=== PATIENT | female | born 1975 | race Caucasian/White ===

== ENCOUNTER 2022-09-03 23:29 | Emergency (ER) | payer OTHER, SELFPAY ==
[2022-09-03 23:33] VITALS: BP 169/90; PULSE 69; RESP 18; TEMP 36.8; O2SAT 96; BMI 64.0
--- NOTE | 2022-09-03 23:36 | ED_ITS ---
HPI - Seizure General Chief Complaint: Seizure Stated Complaint: seizure Time Seen by Provider: 09/03/22 23:36 History of Present Illness HPI Narrative: Patient brought in via EMS with the complaint of seizure. Patient states she was at home sleeping. She has not been sick with anything. While she was sleeping came into the room and she was not responding because she was sleeping, So he tried to wake her up and she woke up confused and startled. She states she was shaking so he called EMS because she was shaky for like 20 minutes. She has a history of nonepileptic, pseudoseizures, stress-induced seizures per her neurologist after the workup was done at the [facility]. Patient was not postictal did not have any urinary, bowel incontinence. She also has a history of migraines when she arrives she states she had migraine. She has not taking anything at home for the migraine. She denies any visual disturbance, speech difficulties. She denies any focal paresthesias, weakness. she has not been sick with any fever, chills, or cough. She denies any nausea, vomiting, diarrhea, constipation, abdominal pain. She denies any chest pain, shortness of breath. Denies any trauma.EMS stated that has been told them she has no history of seizures and the patient came straight to CAT scan. Patient states she was not being woken up because she was having any difficulty breathing or she was cyanotic or apneic states the just walked in the room called her name and she didn't answer so he Started waking her up. Related Data Home Medications Medication Instructions Recorded Confirmed fluoxetine 20 mg capsule 20 mg PO DAILY 09/03/22 09/03/22 fremanezumab-vfrm 225 mg/1.5 mL 225 mg subcut DAILY 09/03/22 09/03/22 subcutaneous auto-injector (Ajovy) galcanezumab-gnlm 120 mg/mL 120 mg subcut DAILY 09/03/22 09/03/22 subcutaneous pen injector (Emgality Pen) hydroxyzine pamoate 25 mg capsule 25 mg PO DAILY PRN anxiety 09/03/22 09/03/22 metoprolol tartrate 50 mg tablet 50 mg PO DAILY 09/03/22 09/03/22 prazosin 1 mg capsule 1 mg PO DAILY 09/03/22 09/03/22 Allergies Allergy/AdvReac Type Severity Reaction Status Date / Time No Known Drug Allergies Allergy Verified 09/03/22 23:41 Review of Systems ROS Status of ROS 10 or more systems reviewed and unremarkable except as noted in history and below [facility] Social History Smoking status: Never smoker Exam Narrative Exam Narrative: Nurses notes and vital signs reviewed and patient is not hypoxic. General: Nontoxic, Well-appearing and in no apparent distress. Skin: Warm, dry, no pallor noted. No Rash Head: Normocephalic, atraumatic. Neck: Supple, non-tender. Eye: Pupils are equal, round and EOMI. No scleral icterus. Ears, Nose, Mouth, and Throat: TM clear, no posterior oropharynx erythema or nasal mucosal hypertrophy, uvula is mid-line Oral mucosa is moist Cardiovascular: Regular Rate and Rhythm without murmur, gallop or rub. Respiratory: No accessory muscle use or respiratory distress. Lungs are clear to auscultation, no wheezing, rales or rhonchi Chest Wall: no tenderness Back: No midline thoracic or lumbar vertebral tenderness. No CVA tenderness Musculoskeletal: normal ROM, no calf or popliteal tenderness, no lower extremity edema/swelling GI: Abdomen is soft, non-distended. Normal bowel sounds. No masses appreciated. No tenderness to palpation. No rebound, guarding, or rigidity noted. Neurological: A&O x4. No cranial nerve dysfunction observed. No truncal ataxia. Moves all extremities. Sensation intact. Psychiatric: Cooperative and interactive. Normal mood and affect. Constitutional Vital Signs - 24 hr 09/03/22 23:33 09/03/22 23:39 09/03/22 23:44 Temperature 98.2 F Pulse Rate Pulse Rate [Monitor] 69 Respiratory Rate 18 Blood Pressure 169/90 H 167/91 H Blood Pressure [Left Arm] 169/90 H Pulse Oximetry 96 97 Oxygen Delivery Method Room Air 09/04/22 00:06 09/04/22 00:06 09/04/22 00:31 Temperature Pulse Rate 71 72 70 Pulse Rate [Monitor] Respiratory Rate 14 15 Blood Pressure 163/101 H 118/79 Blood Pressure [Left Arm] Pulse Oximetry 97 100 99 Oxygen Delivery Method Course Vital Signs Vital signs: Vital Signs Temperature 98.2 F 09/03/22 23:33 Pulse Rate 69 09/03/22 23:33 Respiratory Rate 18 09/03/22 23:33 Blood Pressure 169/90 H 09/03/22 23:33 Pulse Oximetry 96 09/03/22 23:33 Oxygen Delivery Method Room Air 09/03/22 23:33 Temperature 98.2 F 09/03/22 23:33 Pulse Rate 70 09/04/22 00:31 Respiratory Rate 15 09/04/22 00:31 Blood Pressure 118/79 09/04/22 00:31 Pulse Oximetry 99 09/04/22 00:31 Oxygen Delivery Method Room Air 09/03/22 23:33 MDM - Seizure MDM Narrative Medical decision making narrative: Patient's glucose was normal. Lab studies were ordered. She was given 30 mg of Toradol IV. CT scan of lab studies are unremarkable. Patient advised follow-up with primary care doctor and neurologist. At this time the patient is without objective evidence of an acute process requiring hospitalization or inpatient management. The patient has remained hemodynamically stable. No additional indication for emergent studies at this time. I answered all questions. Discussed discharge instructions including standard anticipatory guidance and what should prompt a return to the emergency department, including if they get worse are not getting better or develops any new or concerning symptoms. I've given them specific time frame in which to follow-up, and who to follow-up with. The patient demonstrates understanding. Patient is nontoxic and stable for discharge with outpatient follow-up. This note was created with the assistance of a speech recognition program. A lthough the intention is to generate documents that actually reflects the content of the visit, no guarantees can be provided that every mistake has been identified and corrected by editing. Medical Records Attestation: I reviewed the patient's medical records. Lab Data Attestation: I reviewed the patient's lab results. Labs: Lab Results 09/03/22 09/03/22 09/04/22 Range/Units 00:05 23:55 01:18 WBC 9.4 (4.0-11.0) 10^3/uL RBC 4.32 (4.20-5.40) 10^6/uL Hgb 12.4 (12.0-16.0) g/dL Hct 38.5 (36.0-48.0) % MCV 89.1 (81.0-99.0) fL MCH 28.7 (26.7-34.0) pg MCHC 32.2 (29.9-35.2) g/dL RDW 12.9 (11.0-15.0) % Plt Count 270 (150-450) 10^3/uL MPV 10.3 (9.5-13.5) fL Neut % (Auto) 47.8 (43.0-75.0) % Lymph % (Auto) 41.8 (20.5-60.0) % [place] % (Auto) 7.8 (1.7-12.0) % Eos % (Auto) 1.9 (0.9-7.0) % Baso % (Auto) 0.3 (0.2-2.0) % Neut # (Auto) 4.5 (1.4-6.5) 10^3/uL Lymph # (Auto) 3.9 H (1.2-3.8) 10^3/uL [place] # (Auto) 0.7 (0.3-0.8) 10^3/uL Eos # (Auto) 0.2 (0.0-0.7) 10^3/uL Baso # (Auto) 0.0 (0.0-0.1) 10^3/uL Abs Immat Gran (auto) 0.04 H (0.00-0.03) 10^3/uL Imm/Tot Granulo (auto) 0.4 (0.0-0.5) % Sodium 138 (136-145) mmol/L Potassium 4.0 (3.5-5.1) mmol/L Chloride 104 (98-107) mmol/L Carbon Dioxide 25.6 (21.0-32.0) mmol/L Anion Gap 12.4 BUN 13.0 (7.0-18.0) mg/dL Creatinine 1.14 H (0.55-1.02) mg/dL Est GFR ( Amer) >60 (>=60) Est GFR (Non-Af Amer) 51 L (>=60) BUN/Creatinine Ratio 11.4 Glucose 111 H (74-106) mg/dL Calcium 8.6 (8.5-10.1) mg/dL Magnesium 1.8 (1.8-2.4) mg/dL Total Bilirubin 0.2 (0.2-1.0) mg/dL AST 15 (15-37) U/L ALT 20 (14-59) U/L Alkaline Phosphatase 86 (46-116) U/L Total Protein 6.5 (6.4-8.2) g/dL Albumin 3.3 L (3.4-5.0) g/dL Globulin 3.2 g/dL Albumin/Globulin Ratio 1.0 Urine Color Lt. yellow (YELLOW) Urine Clarity Clear (CLEAR) Urine pH 6.0 (5.0-9.0) Ur Specific [place] 1.020 (1.005-1.025) Urine Protein Negative (NEG/TRACE) mg/dL Urine Glucose (UA) Negative (NEGATIVE) mg/dL Urine Ketones Negative (NEGATIVE) mg/dL Urine Occult Blood Trace-i (NEGATIVE) Urine Nitrite Negative (NEGATIVE) Urine Bilirubin Negative (NEGATIVE) Urine Urobilinogen 0.2 (0.2-1.0) EU/dL Ur Leukocyte Esterase Trace A (NEGATIVE) Urine RBC 0-2 (0-2) #/HPF Urine WBC 2-5 A (NONE SEEN) #/HPF Ur Squamous Epith Cells Moderate A (NONE/RARE) #/LPF Urine Crystals None seen (None Seen) #/HPF Urine Bacteria Trace A (NONE SEEN) #/HPF Urine Casts None seen (NONE SEEN) #/LPF Urine Mucus None seen (NONE SEEN) Urine Opiates Screen Negative (NEGATIVE) Ur Buprenorphine Scrn Negative (NEGATIVE) Ur Oxycodone Screen Negative (NEGATIVE) Urine Methadone Screen Negative (NEGATIVE) Ur Propoxyphene Screen Negative (NEGATIVE) Ur Barbiturates Screen Negative (NEGATIVE) U Tricyclic Antidepress Negative (NEGATIVE) Ur Phencyclidine Scrn Negative (NEGATIVE) Ur Amphetamines Screen Negative (NEGATIVE) U Methamphetamines Scrn Negative (NEGATIVE) U Benzodiazepines Scrn Positive A (NEGATIVE) Urine Cocaine Screen Negative (NEGATIVE) U Cannabinoids Screen Negative (NEGATIVE) ECG Data Attestation: I personally reviewed and interpreted this ECG as follows: Discharge Plan Discharge Chief Complaint: Seizure Clinical Impression: Cephalalgia Patient Disposition: Home, Self-Care Time of Disposition Decision: 01:41 Condition: Good Mode of Transportation: Private Vehicle Prescriptions / Home Meds: No Action fluoxetine 20 mg capsule 20 mg PO DAILY Ajovy Autoinjector 225 mg/1.5 mL auto-injector 225 mg SUBCUT DAILY Emgality Pen 120 mg/mL pen injector 120 mg SUBCUT DAILY hydroxyzine pamoate 25 mg capsule 25 mg PO DAILY PRN (Reason: anxiety) metoprolol tartrate 50 mg tablet 50 mg PO DAILY prazosin 1 mg capsule 1 mg PO DAILY Instructions: General Headache (ED) Stand Alone Forms: Portal Instructions Referrals: Campbell Hedrick MD [Primary Care Provider] - 1 week Discharge Date/Time: 09/04/22 01:58
--- NOTE | 2022-09-03 23:38 | ECG_ITS ---
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
--- NOTE | 2022-09-03 23:38 | XR_ITS ---
The [address] [address] Patient Name: ALISHA GOOD MRN: [id number] date: 1975 Sex: F Assigned Patient Location: ER Current Patient Location: ER Accession/Order Number: [id number] Exam Date: 09/03/2022 23:59 Report Date: 09/04/2022 00:36 At the request of: FITO JONES Procedure: XR chest 2V CXR- 2 VIEW HISTORY: Seizure activity COMPARISON: None. TECHNIQUE: 2 views of the chest are submitted for review. FINDINGS: The lungs are adequately expanded without evidence of infiltrate and/or effusion. The cardiac silhouette measures within normal. Pulmonary vascularity is unremarkable. Osseous structures are within normal limits for age. IMPRESSION: No plain film evidence for acute cardiopulmonary disease. Electronically authenticated by: JAMAAL GALAVIZ Date: 09/04/2022 00:36
[2022-09-03 23:39] VITALS: BP 169/90; O2SAT 97
[2022-09-03 23:44] VITALS: BP 167/91
--- NOTE | 2022-09-03 23:46 | CT_ITS ---
The [address] [address] Patient Name: ALISHA GOOD MRN: [id number] date: 1975 Sex: F Assigned Patient Location: ED.MAIN Current Patient Location: ED.MAIN Accession/Order Number: [id number] Exam Date: 09/03/2022 23:30 Report Date: 09/04/2022 01:47 At the request of: FITO SOARES Procedure: CT stroke head/brain wo con EXAM: CT stroke head/brain wo con CLINICAL INDICATION: seizure COMPARISON: CT head 09/23/2021 TECHNIQUE: Axial CT images of the brain were obtained without contrast. Dose reduction techniques were achieved by using automated exposure control and/or adjustment of mA and/or kV according to patient size and/or use of iterative reconstruction technique. FINDINGS: Brain parenchyma: No mass effect or midline shift is seen. Maza-white differentiation is maintained. No findings suspicious for intracranial hemorrhage. No findings suggesting acute stroke. Ventricles and extra-axial spaces: Ventricles are concordant with sulci. No findings suggesting hydrocephalus. Visualized paranasal sinuses: No findings suggesting acute sinusitis. Mild to moderate mucosal thickening noted along the left sphenoid sinus. Mastoid air cells: Clear. Included portions of the orbits:Included portions of the orbits with no evidence of fracture or other acute pathology. Bones: No fracture is seen. Impression: 1. No acute intracranial process visualized. No findings suspicious for acute stroke by noncontrast head CT. If there is high suspicion for acute intracranial pathology, please note that magnetic resonance imaging or other additional evaluation may be more sensitive than noncontrast head CT. Findings were relayed to Dr. Soares over telephone by Dr. Méndez at 1:47 AM on 09/04/2022. Electronically authenticated by: DIANE MÉNDEZ Date: 09/04/2022 01:47
[2022-09-04 00:01] LABS: Basophils Percent Auto 0.3 % (0.2-2.0); Eosinophils Absolute Auto 0.2 10^3/uL (0.0-0.7); Eosinophils Percent Auto 1.9 % (0.9-7.0); Hematocrit 38.5 % (36.0-48.0); Hemoglobin 12.4 g/dL (12.0-16.0); Immature Granulocytes Abs Auto 0.04 10^3/uL (0.00-0.03); Immature Granulocytes Pct Auto 0.4 % (0.0-0.5); Lymphocytes Absolute Auto 3.9 10^3/uL (1.2-3.8); Lymphocytes Percent Auto 41.8 % (20.5-60.0); Mean Corpuscular HGB Conc 32.2 g/dL (29.9-35.2); Mean Corpuscular Hemoglobin 28.7 pg (26.7-34.0); Mean Corpuscular Volume 89.1 fL (81.0-99.0); Mean Platelet Volume 10.3 fL (9.5-13.5); Monocytes Absolute Auto 0.7 10^3/uL (0.3-0.8); Monocytes Percent Auto 7.8 % (1.7-12.0); Neutrophils Absolute Auto 4.5 10^3/uL (1.4-6.5); Neutrophils Percent Auto 47.8 % (43.0-75.0); Platelet Count 270 10^3/uL (150-450); Red Blood Count 4.32 10^6/uL (4.20-5.40); Red Cell Distribution Width 12.9 % (11.0-15.0); White Blood Count 9.4 10^3/uL (4.0-11.0)
[2022-09-04 00:06] VITALS: BP 163/101; PULSE 71; PULSE 72; RESP 14; O2SAT 100; O2SAT 97
[2022-09-04] MEDS: KETOROLAC TROMETHAMINE 30 MG/ML VIAL IVP (00:20)
[2022-09-04 00:31] VITALS: BP 118/79; PULSE 70; RESP 15; O2SAT 99
[2022-09-04 00:33] LABS: Alanine Aminotransferase 20 U/L (14-59); Albumin Level 3.3 g/dL (3.4-5.0); Alkaline Phosphatase 86 U/L (46-116); Anion Gap 12.4; Aspartate Amino Transferase 15 U/L (15-37); BUN Creatinine Ratio 11.4; Bilirubin Total 0.2 mg/dL (0.2-1.0); Calcium 8.6 mg/dL (8.5-10.1); Carbon Dioxide 25.6 mmol/L (21.0-32.0); Chloride 104 mmol/L (98-107); Estimated GFR (African America >60 (>=60); Estimated GFR (Non-African Ame 51 (>=60); Globulin 3.2 g/dL; Glucose 111 mg/dL (74-106); Magnesium 1.8 mg/dL (1.8-2.4); Sodium 138 mmol/L (136-145); Total Protein 6.5 g/dL (6.4-8.2)
[2022-09-04 01:15] LABS: Bilirubin Urine NEGATIVE (NEGATIVE); Blood Urine TRACE-I (NEGATIVE); Clarity Urine CLEAR (CLEAR); Color Urine LT. YELLOW (YELLOW); Glucose Urine UA NEGATIVE (NEGATIVE); Ketones Urine NEGATIVE (NEGATIVE); Leukocyte Esterase Urine TRACE (NEGATIVE); Nitrite Urine NEGATIVE (NEGATIVE); Protein Urine NEGATIVE (NEG/TRACE); Urobilinogen Urine 0.2 EU/dL (0.2-1.0)
[2022-09-04 01:18] LABS: Urine Microscopic Indicated YES
[2022-09-04 01:29] LABS: Bacteria Urine TRACE #/HPF (NONE SEEN); Crystals Seen? None Seen #/HPF (None Seen); Mucus Urine NONE SEEN (NONE SEEN); RBC Urine 0-2 #/HPF (0-2); Squamous Epithelial Cell Urine MODERATE #/LPF (NONE/RARE)
[2022-09-04 01:30] LABS: Cast Seen? NONE SEEN #/LPF (NONE SEEN)
[2022-09-04 01:30] LABS: Amphetamine Screen Urine NEGATIVE (NEGATIVE); Benzodiazepines Screen Urine POSITIVE (NEGATIVE); Cannabinoid Screen Urine NEGATIVE (NEGATIVE); Cocaine Screen Urine NEGATIVE (NEGATIVE); Methamphetamines Screen Urine NEGATIVE (NEGATIVE); Opiate Screen Urine NEGATIVE (NEGATIVE); Phencyclidine Screen Urine NEGATIVE (NEGATIVE)
[2022-09-04 01:31] LABS: Barbiturates Screen Urine NEGATIVE (NEGATIVE); Buprenorphine Screen Urine NEGATIVE (NEGATIVE); Methadone Screen Urine NEGATIVE (NEGATIVE); Oxycodone Screen Urine NEGATIVE (NEGATIVE); Tricyclic Antidepressant Urine NEGATIVE (NEGATIVE)
== END 2022-09-04 01:58 | disposition home or self-care (01) ==
PROVIDERS: Emergency Provider Emergency Medicine; PCP Family Medicine
DX: R51.9 Headache, unspecified (principal); Z79.899 Other long term (current) drug therapy
CPT/HCPCS: 36415; 70450; 71046; 80053; 80307; 81003; 81015; 83735; 85025; 93005; 96374; 99285

== ENCOUNTER 2022-10-03 12:18 | Emergency (ER) | payer OTHER, SELFPAY ==
[2022-10-03 12:20] VITALS: BP 162/92; PULSE 71; RESP 18; TEMP 36.8; O2SAT 99; BMI 28.5
[2022-10-03 12:24] VITALS: BP 162/92; PULSE 62; RESP 18; O2SAT 98
[2022-10-03 12:33] VITALS: BP 147/73; PULSE 56; RESP 20; O2SAT 96
--- NOTE | 2022-10-03 12:49 | ED.GENADUL1 ---
HPI - General Adult General Chief complaint: Seizure Stated complaint: SEIZURE ACITIVITY Time Seen by Provider: 10/03/22 12:49 Source: patient Mode of arrival: walk-in Limitations: no limitations History of Present Illness HPI narrative: pt presents to the emergency department complaining of a seizure. She was brought in by private car by her significant other stating that the patient had a witnessed seizure at that lasted 10 minutes. She recovered immediately after that did not have a postictal period. Did not have any urinary, bowel incontinence. Patient states she has a history of seizures. She is seen by a neurologist at the [facility]. She states they have not placed her on any antiepileptic drugs, but she was told to continue with her depression and anxiety medications. She has an appointment tomorrow with neurology at the [facility]. She denies being sick with nausea, vomiting, or diarrhea. She has not had any Fever, chills, cough, or upper respiratory infection symptoms. She denies any headache, visual disturbance, or speech difficulties. She denies any paresthesias, or weakness.And, shortness of breath.She denies any flank pain, hematuria, dysuria. She denies any trauma. Related Data Home Medications Medication Instructions Recorded Confirmed fluoxetine 20 mg capsule 20 mg PO DAILY 09/03/22 09/03/22 galcanezumab-gnlm 120 mg/mL 120 mg subcut DAILY 09/03/22 09/03/22 subcutaneous pen injector (Emgality Pen) hydroxyzine pamoate 25 mg capsule 25 mg PO DAILY PRN anxiety 09/03/22 09/03/22 metoprolol tartrate 50 mg tablet 50 mg PO DAILY 09/03/22 09/03/22 prazosin 1 mg capsule 1 mg PO DAILY 09/03/22 09/03/22 Allergies Allergy/AdvReac Type Severity Reaction Status Date / Time No Known Drug Allergies Allergy Verified 09/03/22 23:41 Review of Systems ROS Status of ROS 10 or more systems reviewed and unremarkable except as noted in history and below [facility] Social History Smoking status: Never smoker Exam Narrative Exam Narrative: Nurses notes and vital signs reviewed and patient is not hypoxic. General: Nontoxic, Well-appearing and in no apparent distress. Skin: Warm, dry, no pallor noted. No Rash Head: Normocephalic, atraumatic. Neck: Supple, non-tender. Eye: Pupils are equal, round and EOMI. No scleral icterus. Ears, Nose, Mouth, and Throat: TM clear, no posterior oropharynx erythema or nasal mucosal hypertrophy, uvula is mid-line Oral mucosa is moist Cardiovascular: Regular Rate and Rhythm without murmur, gallop or rub. Respiratory: No accessory muscle use or respiratory distress. Lungs are clear to auscultation, no wheezing, rales or rhonchi Chest Wall: no tenderness Back: No midline thoracic or lumbar vertebral tenderness. No CVA tenderness Musculoskeletal: normal ROM, no calf or popliteal tenderness, no lower extremity edema/swelling GI: Abdomen is soft, non-distended. Normal bowel sounds. No masses appreciated. No tenderness to palpation. No rebound, guarding, or rigidity noted. Neurological: A&O x4. No cranial nerve dysfunction observed. No truncal ataxia. Moves all extremities. Sensation intact. Psychiatric: Cooperative and interactive. Normal mood and affect. Constitutional Vital Signs, click to edit/add: Last Vital Signs Temp 98.2 F 10/03/22 12:20 Pulse 71 10/03/22 12:20 Resp 18 10/03/22 12:20 BP 162/92 H 10/03/22 12:20 Pulse Ox 99 10/03/22 12:20 O2 Del Method Room Air 10/03/22 12:20 Course Vital Signs Vital signs: Vital Signs Temperature 98.2 F 10/03/22 12:20 Pulse Rate 71 10/03/22 12:20 Respiratory Rate 18 10/03/22 12:20 Blood Pressure 162/92 H 10/03/22 12:20 Pulse Oximetry 99 10/03/22 12:20 Oxygen Delivery Method Room Air 10/03/22 12:20 Temperature 98.2 F 10/03/22 12:20 Pulse Rate 71 10/03/22 12:20 Respiratory Rate 18 10/03/22 12:20 Blood Pressure 162/92 H 10/03/22 12:20 Pulse Oximetry 99 10/03/22 12:20 Oxygen Delivery Method Room Air 10/03/22 12:20 Medical Decision Making MDM Narrative Medical decision making narrative: Patient is neurologically intact. Patient is nontoxic. Doesn't have any focal complaints. She has follow-up appointment tomorrow with neurology. labs are unremarkable. At this time the patient is without objective evidence of an acute process requiring hospitalization or inpatient management. The patient has remained hemodynamically stable. No additional indication for emergent studies at this time. I answered all questions. Discussed discharge instructions including standard anticipatory guidance and what should prompt a return to the emergency department, including if they get worse are not getting better or develops any new or concerning symptoms. I've given them specific time frame in which to follow-up, and who to follow-up with. The patient demonstrates understanding. Patient is nontoxic and stable for discharge with outpatient follow-up. This note was created with the assistance of a speech recognition program. Although the intention is to generate documents that actually reflects the content of the visit, no guarantees can be provided that every mistake has been identified and corrected by editing. Lab Data Lab results reviewed: Yes I reviewed the patient's lab results Labs: Lab Results 10/03/22 Range/Units 12:35 WBC 8.3 (4.0-11.0) 10^3/uL RBC 4.59 (4.20-5.40) 10^6/uL Hgb 13.3 (12.0-16.0) g/dL Hct 40.6 (36.0-48.0) % MCV 88.5 (81.0-99.0) fL MCH 29.0 (26.7-34.0) pg MCHC 32.8 (29.9-35.2) g/dL RDW 13.1 (11.0-15.0) % Plt Count 346 (150-450) 10^3/uL MPV 10.7 (9.5-13.5) fL Neut % (Auto) 51.5 (43.0-75.0) % Lymph % (Auto) 38.5 (20.5-60.0) % [place] % (Auto) 6.2 (1.7-12.0) % Eos % (Auto) 2.7 (0.9-7.0) % Baso % (Auto) 0.6 (0.2-2.0) % Neut # (Auto) 4.3 (1.4-6.5) 10^3/uL Lymph # (Auto) 3.2 (1.2-3.8) 10^3/uL [place] # (Auto) 0.5 (0.3-0.8) 10^3/uL Eos # (Auto) 0.2 (0.0-0.7) 10^3/uL Baso # (Auto) 0.1 (0.0-0.1) 10^3/uL Abs Immat Gran (auto) 0.04 H (0.00-0.03) 10^3/uL Imm/Tot Granulo (auto) 0.5 (0.0-0.5) % Sodium 139 (136-145) mmol/L Potassium 4.1 (3.5-5.1) mmol/L Chloride 104 (98-107) mmol/L Carbon Dioxide 28.3 (21.0-32.0) mmol/L Anion Gap 10.8 BUN 15.0 (7.0-18.0) mg/dL Creatinine 1.09 H (0.55-1.02) mg/dL Est GFR ( Amer) >60 (>=60) Est GFR (Non-Af Amer) 53 L (>=60) BUN/Creatinine Ratio 13.8 Glucose 109 H (74-106) mg/dL Calcium 8.7 (8.5-10.1) mg/dL Discharge Plan Discharge Chief Complaint: Seizure Clinical Impression: Seizure Patient Disposition: Home, Self-Care Time of Disposition Decision: 14:05 Condition: Good Mode of Transportation: Private Vehicle Prescriptions / Home Meds: No Action fluoxetine 20 mg capsule 20 mg PO DAILY Emgality Pen 120 mg/mL pen injector 120 mg SUBCUT DAILY hydroxyzine pamoate 25 mg capsule 25 mg PO DAILY PRN (Reason: anxiety) metoprolol tartrate 50 mg tablet 50 mg PO DAILY prazosin 1 mg capsule 1 mg PO DAILY Instructions: Recurrent Seizures in Adults (ED) Stand Alone Forms: Portal Instructions Referrals: Campbell Hedrick MD [Primary Care Provider] - 1 week
[2022-10-03 13:00] VITALS: BP 134/86; PULSE 54; RESP 26; O2SAT 96
[2022-10-03 13:30] VITALS: BP 131/83; PULSE 55; RESP 10; O2SAT 96
[2022-10-03 13:49] LABS: Basophils Absolute Auto 0.1 10^3/uL (0.0-0.1); Basophils Percent Auto 0.6 % (0.2-2.0); Eosinophils Absolute Auto 0.2 10^3/uL (0.0-0.7); Eosinophils Percent Auto 2.7 % (0.9-7.0); Hematocrit 40.6 % (36.0-48.0); Hemoglobin 13.3 g/dL (12.0-16.0); Immature Granulocytes Abs Auto 0.04 10^3/uL (0.00-0.03); Immature Granulocytes Pct Auto 0.5 % (0.0-0.5); Lymphocytes Absolute Auto 3.2 10^3/uL (1.2-3.8); Lymphocytes Percent Auto 38.5 % (20.5-60.0); Mean Corpuscular HGB Conc 32.8 g/dL (29.9-35.2); Mean Corpuscular Volume 88.5 fL (81.0-99.0); Mean Platelet Volume 10.7 fL (9.5-13.5); Monocytes Absolute Auto 0.5 10^3/uL (0.3-0.8); Monocytes Percent Auto 6.2 % (1.7-12.0); Neutrophils Absolute Auto 4.3 10^3/uL (1.4-6.5); Neutrophils Percent Auto 51.5 % (43.0-75.0); Platelet Count 346 10^3/uL (150-450); Red Blood Count 4.59 10^6/uL (4.20-5.40); Red Cell Distribution Width 13.1 % (11.0-15.0); White Blood Count 8.3 10^3/uL (4.0-11.0)
[2022-10-03 13:57] LABS: Anion Gap 10.8; BUN Creatinine Ratio 13.8; Calcium 8.7 mg/dL (8.5-10.1); Carbon Dioxide 28.3 mmol/L (21.0-32.0); Chloride 104 mmol/L (98-107); Estimated GFR (African America >60 (>=60); Estimated GFR (Non-African Ame 53 (>=60); Glucose 109 mg/dL (74-106); Potassium 4.1 mmol/L (3.5-5.1); Sodium 139 mmol/L (136-145)
[2022-10-03 14:00] VITALS: BP 140/80; PULSE 54; RESP 11; O2SAT 98
== END 2022-10-03 14:20 | disposition home or self-care (01) ==
PROVIDERS: Emergency Provider Emergency Medicine; PCP Family Medicine
DX: G40.909 Epilepsy, unspecified, not intractable, without status epilepticus (principal); Z79.899 Other long term (current) drug therapy
CPT/HCPCS: 36415; 80048; 85025; 99283

== ENCOUNTER 2022-10-28 12:26 | Outpatient (OUT) | payer OTHER, SELFPAY ==
--- NOTE | 2022-10-28 12:39 | MM_ITS ---
Patient: ALISHA GOOD Exam Date: 10/28/2022 : 1975 Gender:F Ordering : DR Campbell Hedrick . Admission #: [id number] Family : MARY GRAHAM Order #: [id number] CLICK HERE TO VIEW EXAM RADIOLOGY REPORT PROCEDURE: MM TOMOSYNTHESIS SCREENING BI COMPARISON: MG MAMM SCREEN 3D JG CAD, 01/29/2021. MG MAMM SCREEN JG W CAD, 01/28/2020. MG MAMM SCREEN JG W CAD, 01/23/2019. MG MAMM JG SCRN W CAD DIG, 11/07/2013. INDICATIONS: Screening mammogram Calculator Name NCI Breast Cancer Risk Assessment Tool 5 Year Breast Cancer Risk 1.00% Lifetime Breast Cancer Risk 10.00% Personal Breast Cancer No Personal Ovarian Cancer No Treatments None Family Cancers None LOCATION: [facility] BREAST COMPOSITION: Scattered areas fibroglandular density. FINDINGS: DIAGNOSTIC CATEGORY 1--NEGATIVE. RIGHT BREAST: No significant suspicious finding. No significant change has occurred. LEFT BREAST: No significant suspicious finding. No significant change has occurred. RECOMMENDATIONS: ROUTINE MAMMOGRAM AND CLINICAL EVALUATION IN 12 MONTHS. PLEASE NOTE: A NORMAL MAMMOGRAM DOES NOT EXCLUDE THE POSSIBILITY OF BREAST CANCER. A CLINICALLY SUSPICIOUS PALPABLE LUMP SHOULD BE BIOPSIED. Dictated by: Jake Singh M.D. on 10/28/2022 at 14:54 Approved by: Jake Singh M.D. on 10/28/2022 at 15:00
[2022-10-28 12:51] LABS: Basophils Percent Auto 0.5 % (0.2-2.0); Eosinophils Absolute Auto 0.1 10^3/uL (0.0-0.7); Eosinophils Percent Auto 1.8 % (0.9-7.0); Hematocrit 37.5 % (36.0-48.0); Hemoglobin 12.5 g/dL (12.0-16.0); Immature Granulocytes Abs Auto 0.01 10^3/uL (0.00-0.03); Immature Granulocytes Pct Auto 0.2 % (0.0-0.5); Lymphocytes Absolute Auto 2.5 10^3/uL (1.2-3.8); Mean Corpuscular HGB Conc 33.3 g/dL (29.9-35.2); Mean Platelet Volume 10.1 fL (9.5-13.5); Monocytes Absolute Auto 0.4 10^3/uL (0.3-0.8); Monocytes Percent Auto 5.7 % (1.7-12.0); Neutrophils Absolute Auto 3.4 10^3/uL (1.4-6.5); Neutrophils Percent Auto 52.8 % (43.0-75.0); Platelet Count 310 10^3/uL (150-450); Red Blood Count 4.31 10^6/uL (4.20-5.40); Red Cell Distribution Width 13.2 % (11.0-15.0); White Blood Count 6.5 10^3/uL (4.0-11.0)
[2022-10-28 14:20] LABS: Alanine Aminotransferase 19 U/L (14-59); Albumin Level 3.4 g/dL (3.4-5.0); Alkaline Phosphatase 63 U/L (46-116); Anion Gap 11.6; Aspartate Amino Transferase 14 U/L (15-37); BUN Creatinine Ratio 13.3; Bilirubin Total 0.5 mg/dL (0.2-1.0); Calcium 8.4 mg/dL (8.5-10.1); Carbon Dioxide 28.5 mmol/L (21.0-32.0); Chloride 104 mmol/L (98-107); Chol HDL Ratio 4.8; Cholesterol 206 mg/dL (<=200); Estimated GFR (African America >60 (>=60); Estimated GFR (Non-African Ame >60 (>=60); Free T3 1.98 pg/mL (2.18-3.98); Globulin 3.3 g/dL; Glucose 90 mg/dL (74-106); HDL Cholesterol 43 mg/dL (40-60); Potassium 4.1 mmol/L (3.5-5.1); Sodium 140 mmol/L (136-145); Thyroid Stimulating Hormone 1.627 uIU/mL (0.358-3.740); Total Protein 6.7 g/dL (6.4-8.2); Triglycerides 86 mg/dL (<=150); VLDL CHOLESTEROL 17.2 mg/dL
[2022-10-28 14:26] LABS: Estimated Average Glucose 108 mg/dL; Glycohemoglobin A1C 5.4 % (4.5-6.2)
[2022-10-29 10:12] LABS: Insulin 7.3 uIU/mL (2.6-24.9)
== END 2022-10-28 12:27 | disposition home or self-care (01) ==
LOC: MAMMO 12:26
PROVIDERS: PCP Family Medicine; Visit Provider Family Medicine
DX: Z00.00 Encounter for general adult medical examination without abnormal findings (principal); Z12.31 Encounter for screening mammogram for malignant neoplasm of breast
CPT/HCPCS: 36415; 77063; 77067; 80053; 80061; 82306; 83036; 83525; 83540; 84436; 84443; 84481; 85025

== ENCOUNTER 2023-02-23 07:38 | Outpatient (REF) | payer OTHER, SELFPAY ==
--- OUTSIDE RECORDS SUMMARY | 2023-03-09 02:36 | XMS_ITS | CCD ---
Author Name Unknown Address [address] [place] [address] Organization [facility] Care Team Providers Care Professor Of Economics Name Role Phone MD Cristino Mendes Primary Care Provider [phone] DO Neeraj Arevalo Emergency Provider Paolo Kaye Jr. Primary Care Provider Cristino Hernandes MD Unavailable Cristino Mendes Primary Care Physician [phone] Tracy Cortez Attending Unavailable Tracy Cortez Admitting Unavailable Cristino Mendes MD Unavailable Cristino Mendes MD Unavailable Neeraj Arevalo Admitting Unavailable Neeraj Arevalo Attending Unavailable Cristino Mendes Primary Care Unavailable Ortega Conklin Admitting UnavailOrtega Lozano Attending UnavailCristino George Primary Care Unavailable CINTHYA Ocampo, DR GREGG Admitting Unavailable CINTHYA ., DR GREGG Attending Unavailable CINTHYA ., DR GREGG Primary Care Unavailable CINTHYA ., DR GREGG Admitting Unavailable CINTHYA ., DR GREGG Primary Care Unavailable CINTHYA .DR GREGG Attending Unavailable CINTHYA ., DR GREGG Consulting Unavailable MONICA BURDEN Consulting Unavailable CINTHYA ., DR GREGG Primary Care Unavailable CINTHYA ., DR GREGG Admitting Unavailable CINTHYA ., DR GREGG Attending Unavailable CINTHYA ., DR GERGG Consulting Unavailable KETTY KOHLER Consulting Unavailable KETYT KOHLER Admitting Unavailable KETTY KOHLER Attending Unavailable CINTHYA Ocampo, DR GREGG Primary Care Unavailable CINTHYA ., DR GREGG Primary Care Unavailable DR CARROL BANEGAS Admitting Unavailable DR CARROL BANEGAS Attending Unavailable DR CARROL BANEGAS Consulting Unavailable KAREN ., FITO Attending Unavailable KAREN ., FITO Consulting Unavailable KAREN ., FITO Admitting Unavailable HOY ., DR GREGG Primary Care Unavailable HAY ., DR PEACE Attending Unavailable HOY ., DR GREGG Primary Care Unavailable HAY ., DR PEACE Consulting Unavailable HAY ., DR PEACE Admitting Unavailable HOY ., DR GREGG Primary Care Unavailable BASSAM, DR CARROL Multani Admitting Unavailable BANEGAS, DR CARROL Multani Attending Unavailable BANEGAS, DR CARROL Multani Consulting Unavailable KAREN ., FITO Attending Unavailable KAREN ., FITO Consulting Unavailable KAREN ., FITO Admitting Unavailable HOY ., DR GREGG Primary Care Unavailable HOY ., DR GREGG Primary Care Unavailable HAY ., DR PEACE Attending Unavailable HAY ., DR PEACE Consulting Unavailable HAY ., DR PEACE Admitting Unavailable JOSE F, KETTY Consulting Unavailable JOSE F, KETTY Admitting Unavailable JOSE F, KETTY Attending Unavailable HOY ., DR GREGG Primary Care Unavailable JOSE F, KETTY Consulting Unavailable JOSE F, KETTY Admitting Unavailable JOSE F, KETTY Attending Unavailable HOY ., DR GREGG Primary Care Unavailable PAIGE .KARL Consulting Unavailabl e HAY ., DR PEACE Attending Unavailable HAY ., DR PEACE Admitting Unavailable HOY ., DR GREGG Primary Care Unavailable KAREN ., FITO Attending Unavailable KAREN ., FITO Consulting Unavailable KAREN ., FITO Admitting Unavailable HOY ., DR GREGG Primary Care Unavailable HOY ., DR GREGG Primary Care Unavailable JOSE F, KETTY Consulting Unavailable JOSE F, KETTY Admitting Unavailable JOSE F, KETTY Attending Unavailable BASSAM, DR CARROL Multani Admitting Unavailable BANEGAS, DR CARROL Multani Attending Unavailable BASSAM, DR CARROL Multani Consulting Unavailable HOY ., DR GREGG Primary Care Unavailable HOY ., DR GREGG Primary Care Unavailable BASSAM, DR CARROL Multani Admitting Unavailable BANEGAS, DR CARROL Multani Attending Unavailable BASSAM, DR CARROL Multani Consulting Unavailable ANDERSON ., VIKI Consulting Unavailable HOY ., DR GREGG Primary Care Unavailable JOSE F, KETTY Consulting Unavailable JOSE F, KETTY Admitting Unavailable JOSE F, KETTY Attending Unavailable HOY ., DR GREGG Primary Care Unavailable MIGUEL, CHRISTINA Admitting Unavailable MIGUEL, CHRISTINA Attending Unavailable MIGUEL, CHRISTINA Consulting Unavailable HOY ., DR GREGG Consulting Unavailable HOY ., DR GREGG Admdamon Unavailable HOY ., DR GREGG Attending Unavailable HOY ., DR GREGG Primary Care Unavailable HOY ., DR GREGG Primary Care Unavailable JOSE F, KETTY Consulting Unavailable KETTY KOHLER Admitting Unavailable KETTY KOHLER Attending Unavailable CINTHYA ., DR GREGG Admitting Unavailable CINTHYA ., DR GREGG Primary Care Unavailable JONATHANY ., DR GREGG Attending Unavailable HOY ., DR GREGG Consulting Unavailable ELIJAH, DR CINTHIA Forrest Consulting Unavailable PASHA, DR ORTEGA Admitting Unavailable PASHA, DR ORTEGA Attending Unavailable CINTHYA ., DR GREGG Primary Care Unavailable PAIGE ., KARL MAYNARD Consulting Unavailabl e MARKER ., DR GUZMAN Admitting Unavailable MARKER ., DR GUZMAN Attending Unavailable HOY ., DR GREGG Primary Care Unavailable KELLEY MCDONALD Referring Unavailable RAPP JR, PAOLO S Primary Care Unavailable RAPP JR, PAOLO S Primary Care Unavailable ODALIS CASTELLANOS Attending Unavailable KELLEY MCDONALD Referring Unavailable RAPP JR, PAOLO S Primary Care Unavailable ROSS YEH Attending Unavailable CRISTINO MENDES Referring Unavailable RAPP JR, PAOLO S Primary Care Unavailable NIYA BROWNING Attending Unavaila ble RAPP JR, PAOLO S Primary Care Unavailable RAPP JR, PAOLO S Primary Care Unavailable NIYA BORWNING Attending Unavaila ble RAPP JR, PAOLO S Primary Care Unavailable RAPP JR, PAOLO S Primary Care Unavailable ROSS YEH Attending Unavailable NAJM, IMAD Admitting Unavailable NAJM, IMAD Attending Unavailable RAPP JR, PAOLO S Primary Care Unavailable RAPP JR, PAOLO S Primary Care Unavailable NIKI HAMMER Attending Unavailable ROSS YEH Attending Unavailable RAPP JR, PAOLO S Primary Care Unavailable ALEXANDRO BUNN Attending Unavailable RAPP JR, PAOLO S Primary Care Unavailable Medications Current Medications Medication Drug Class(es) Dates Sig (Normalized) Sig (Original) Etonogestrel Implant System (1 source) Start: 07-28-2020 Etonogestrel Implant System 68 mg, SubCutaneous, Once, 12/2016- 12/2019, Refills(s) 0 Start Date: 07/28/20 Status: Ordered FLUoxetine 40 mg oral capsule (14 sources) Serotonin Reuptake Inhibitor Start: 07-28-2020 take 1 capsule by mouth once daily FLUoxetine 40 mg Cap 40 mg = 1 cap(s), Oral, Daily, Refills(s) 0 Start Date: 07/28/20 Status: Ordered take 3 capsules by mouth once da joe FLUoxetine (PROZAC) 20 mg capsule Take 60 mg by mouth once daily. 0 Active take 1 capsule by mouth three ti mes daily FLUoxetine (PROZAC) 20 mg capsule Take 20 mg by mouth three times daily. 0 Active Comment on above: Take 20 mg by mouth three times daily. Take 60 mg by mouth once daily. Folacin-800 (1 source) Start: 07-28-2020 take 1 tablet by mouth once daily Folacin-800 1 tab, Oral, Daily, Refills(s) 0 Start Date: 07/28/20 Status: Ordered 1 ml galcanezumab-gnlm 120 mg/ml auto-injector (6 sources) Start: 07-05-2022 End: 04-02-2023 inject 1 mL by subcutaneous injection every month galcanezumab-gnlm (EMGALITY PEN) 120 mg/mL pen Inject 1 mL subcutaneously once every month. Do not shake. 6 mL 0 10/04/2022 04/02/2023 Active Comment on above: Inject 1 mL subcutan eously once every month. Do not shake. 24 hr metoprolol succinate 50 mg extended release oral tablet (14 sources) beta-Adrenergic Nesha Start: 07-28-2020 take 1 tablet by mouth twice daily metoprolol 50 mg ER Tab 50 mg = 1 tab(s), Oral, BID, Refills(s) 0 Start Date: 07/28/20 Status: Ordered take 1 tablet by mouth twice bruce ly metoprolol tartrate, short acting, (LOPRESSOR) 50 mg tablet Take 50 mg by mouth twice daily. 0 Active Comment on above: Take 50 mg by mouth twice daily. naproxen 500 mg oral tablet (1 source) Nonsteroidal Anti-inflammatory Drug Start: 2022 take 1 tablet by mouth twice daily Naproxen (Naprosyn) 500 mg tablet Active 500 MG PO Twice daily 12 23January 19, 2022 12:00am rizatriptan 10 mg disintegrating oral tablet (1 source) Serotonin-1b and Serotonin-1d Receptor Agonist Start: 07-28-2020 take 1 tablet by mouth once daily rizatriptan 10 mg Dis Tab 10 mg = 1 tab(s), Oral, Daily, Refills(s) 0 Start Date: 07/28/20 Status: Ordered tiZANidine 4 mg oral capsule (1 source) Central alpha-2 Adrenergic Agonist Start: 07-28-2020 take 1 capsule by mouth three times daily Zanaflex 4 mg oral capsule 4 mg = 1 cap(s), Oral, TID, Refills(s) 0 Start Date: 07/28/20 Status: Ordered Completed/Discontinued Medications Medication Drug Class(es) Dates Sig (Normalized) Sig (Original) amitriptyline hydrochloride 100 mg oral tablet (1 source) Tricyclic Antidepressant Start: 07-28-2020 take 0.5-1 tablets by mouth once daily at bedtime amitriptyline 100 mg oral tablet 100 mg = 1 tab(s), Oral, Once a day (at bedtime), 1/2 to 1 tablet by mouth at bedtime, # 30 tab(s), Refills(s) 0 Start Date: 07/28/20 Status: Ordered 1.5 ml fremanezumab-vfrm 150 mg/ml auto-injector (7 sources) Start: 04-16-2022 End: 07-05-2022 inject 1.5 mL by subcutaneous injection every month fremanezumab-vfrm ([employer] AUTOINJECTOR) 225 mg/1.5 mL auto-injector Inject 1.5 mL subcutaneously once every month. Do not shake. 4.5 mL 2 04/16/2022 07/05/2022 Discontinued (Course of therapy completed) Comment on above: Inject 1.5 mL subcut aneously once every month. Do not shake. hydrOXYzine pamoate 25 mg oral capsule (13 sources) Antihistamine take 1 capsule by mouth every eight hours as needed hydrOXYzine pamoate (VISTARIL) 25 mg capsule Take 25 mg by mouth three times daily as needed for anxiety. 0 Active Comment on above: Take 25 mg by mouth three times daily as needed for anxiety. lamoTRIgine 100 mg oral tablet (5 sources) Mood Stabilizer, Anti-epileptic Agent take 1 tablet by mouth once daily lamoTRIgine (LAMICTAL) 100 mg tablet Take 100 mg by mouth once daily. 0 Active Comment on above: Take 100 mg by mouth once daily. Prazosin (13 sources) alpha-Adrenergic Nesha take 1 capsule by mouth once daily at bedtime prazosin HCl (PRAZOSIN ORAL) Take 1 mg by mouth daily at bedtime. 1 capsule by mouth hs. 0 Active Comment on above: Take 1 mg by mouth d aily at bedtime. 1 capsule by mouth hs. zonisamide 100 mg oral capsule (5 sources) Anti-epileptic Agent take 1 capsule by mouth once daily at bedtime zonisamide (ZONEGRAN) 100 mg capsule Take 100 mg by mouth daily at bedtime. 0 Active Comment on above: Take 100 mg by mouth daily at bedtime. Problems Active Problems Problem Classification Problem Date Documented Da te Episodic/Chronic Anxiety disorders (20 sources) Mixed anxiety and depressive disorder; Translations: [Generalized anxiety disorder] Onset: 2 07-28-2020 Chronic Cardiac dysrhythmias (1 source) Palpitations 07-28-2020 Episodic Epilepsy; convulsions (1 source) Other seizures; Translations: [OTHER SEIZURES] Onset: 3 Chronic Essential hypertension (10 sources) Hypertensive disorder; Translations: [Essential (primary) hypertension] Onset: 3 05-28-2022 Chronic Headache; including migraine (20 sources) Tension-type headache; Translations: [Tension-type headache, unspecified, not intractable] Onset: 2 2022 Chronic Headache; including migraine (1 source) Headache 07-28-2020 Episodic Headache; including migraine (5 sources) Headache; including migraine; Translations: [HEADACHE UNSPECIFIED] Onset: 2 Malaise and fatigue (1 source) Fatigue 07-28-2020 Episodic Miscellaneous mental health disorders (6 sources) Dissociative convulsions; Translations: [Conversion disorder with seizures or convulsions] Onset: 3 2022 Chronic Mood disorders (10 sources) Depressive disorder; Translations: [Depression] Onset: 2 05-28-2022 Chronic Noninfectious gastroenteritis (1 source) Gastroenteritis 07-28-2020 Episodic Other aftercare (1 source) Other longwall foreman (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) drug therapy; Translations: [OTH PHOTOGEOLOGIST CURRENT DRUG THERAPY] Onset: 3 Episodic Other and unspecified benign neoplasm (1 source) Benign neoplasm of skin of neck 08-20-2020 Episodic Other and unspecified benign neoplasm (1 source) Benign neoplasm of soft tissue 07-28-2020 Episodic Other gastrointestinal disorders (1 source) History of gastroesophageal reflux disease 05-10-2021 Episodic Other hereditary and degenerative nervous system conditions (4 sources) Essential tremor; Translations: [ESSENTIAL TREMOR] Onset: 2 Chronic Other nervous system disorders (1 source) Skin sensation disturbance 07-29-2020 Episodic Other non-epithelial cancer of skin (1 source) Basal cell carcinoma of nose 08-20-2020 Episodic Other nutritional; endocrine; and metabolic disorders (1 source) Body mass index 30+ - obesity 07-29-2020 Chronic Other skin disorders (1 source) Change in skin lesion 07-29-2020 Episodic Residual codes; unclassified (1 source) Sleep apnea, unspecified; Translations: [SLEEP APNEA UNSPECIFIED] Onset: 3 Chronic Spondylosis; intervertebral disc disorders; other back problems (2 sources) Low back pain; Translations: [Pain in the coccyx] 07-28-2020 Episodic Unclassified (1 source) Unspecified convulsions; Translations: [Unspecified convulsions] Onset: 2 Unclassified (3 sources) COUGH, UNSPECIFIED; Translations: [COUGH, UNSPECIFIED] Onset: 3 Unclassified (3 sources) CONTACT W/AND (SUSP) EXPOS COVID-19; Translations: [CONTACT W/AND (SUSP) EXPOS COVID-19] Onset: 2 Unclassified (1 source) Established Patient Onset: 3 Viral infection (1 source) COVID-19; Translations: [COVID-19] Onset: 2 Past or Other Problems Problem Classification Problem Date Documented Da te Episodic/Chronic Conditions associated with dizziness or vertigo (1 source) Dizziness and giddiness; Translations: [DIZZINESS AND GIDDINESS] Onset: 08-24-2021 Episodic Epilepsy; convulsions (16 sources) Neurological finding; Translations: [Unspecified convulsions] Onset: 05-28-2022 Episodic Nausea and vomiting (1 source) Nausea; Translations: [NAUSEA] Onset: 12-07-2021 Episodic Nonspecific chest pain (1 source) Chest pain, unspecified; Translations: [CHEST PAIN UNSPECIFIED] Onset: 10-19-2021 Episodic Other connective tissue disease (1 source) Arthrodesis status; Translations: [ARTHRODESIS STATUS] Onset: 04-19-2022 Episodic Other upper respiratory disease (1 source) Nasal congestion; Translations: [NASAL CONGESTION] Onset: 03-25-2022 Episodic Unclassified (1 source) COUGH, UNSPECIFIED; Translations: [COUGH, UNSPECIFIED] Onset: 03-19-2022 Unclassified (1 source) CONTACT W/AND (SUSP) EXPOS COVID-19; Translations: [CONTACT W/AND (SUSP) EXPOS COVID-19] Onset: 10-02-2021 Results Test Name Value Interpretation Reference Range Facil ityola CNOVon 01-07-2023 CNOV Office Visit (EPILMN ) LATISHAALISHA ([id number]) 1975 F Date Time Provider Department 01/07/23 3:00 PM NIYA BROWNING [facility] During your visit today, we recorded the following information about you: Niya Browning, PhD 01/07/2023 4:01 PM Signed [facility] 12-WEEK FND/PNES TREATMENT PROGRAM PSYCHOLOGY NOTE Session #: 2 Office visit: Location: [facility] [address] Pt came to appointment accompanied by: sister ASSESSMENT: This is a 47 year old patient with nonepileptic seizures/functional neurological disorder in counseling for management of symptoms. # of seizures per week: 0 Last day of PNES episode: in the summer Depression: mild SI?: none reported Anxiety: mild Function: pt spends time at home, lives with her boyfriend, takes care of the house Mental Status Exam: The patient was alert and oriented x 4. Eye contact was good. Affect was constricted. Judgment/insight was fair-good. Concentration was ok. Pt reported mood as euthymic. Pt firmly denied any SI/HI this week. INTERVENTION: CBT Workbook Taking Control of FND/PNES Chapter 3 - Getting Support Reviewed the third chapter and helped pt identify a supportive person. Discussed Tool #1: Improving Communication Skills. Reviewed the 3 types of communication styles and examples of each style. Helped pt identify situations from own life experience, and brainstormed ways to improve communication with supportive person for the following week. Continued to review the third chapter, specifically ways to improve relationship with identified support person. Discussed Tool #2: Goal-Setting. Helped pt set an achievable goal for the week. Reviewed discussion questions and provided clarifications. PATIENT RESPONSE: Pt's understanding of the material appeared good; pt asked appropriate questions. Had some difficulty coming up with examples of communication but eventually was able to verbalize given simplified descriptions. Pt was able to select a goal for the week, which includes calling a friend to talk. DIAGNOSIS (PROVISIONAL): F44.5 Functional Neurological Symptom Disorder (with seizure attacks) TREATMENT GOALS: Increase identification of emotions and emotional regulation Learn healthy tools for emotional release Set healthy boundaries with others Increase tools related to communication Increase interest in activities/interest in life Increase healthy lifestyle routines (sleep, exercise, schedule) Develop mindfulness/meditation practice(s) Increase physical activity Explore and engage in activities that align with interests PROGRESS: Pt is motivated, participated in session appropriately and was able to identify a goal to work on. PLAN: Weekly sessions for treatment of Functional Neurological Symptom Disorder with Seizure Attacks. Assignment for next week to include reading the next chapter, as well as keeping a seizure log and a daily journal. Time spent with patient: 45 minutes Niya Browning, PhD [facility] Allergies As of Date: 01/07/2023 (No Known Allergies) Date Reviewed: 10/04/2022 Reviewed by: Jane Mauricio RN - Fully Assessed Reason for Visit: Psychogenic nonepileptic seizure [Other] Primary Visit Diagnosis:Psychogenic nonepileptic seizure [F44.5] Prescriptions as of 01/07/2023 - galcanezumab-gnlm (EMGALITY PEN) 120 mg/mL pen Inject 1 mL subcutaneously once every month. Do not shake. - prazosin HCl (PRAZOSIN ORAL) Take 1 mg by mouth daily at bedtime. 1 capsule by mouth hs. - metoprolol tartrate, short acting, (LOPRESSOR) 50 mg tablet Take 50 mg by mouth twice daily. - FLUoxetine (PROZAC) 20 mg capsule Take 60 mg by mouth once daily. - hydrOXYzine pamoate (VISTARIL) 25 mg capsule Take 25 mg by mouth three times daily as needed for anxiety. Problem List As Of Date 01/07/2023 Noted Resolved HTN (hypertension) [I10] 05/28/2022 Generalized anxiety disorder [F41.1] 05/28/2022 Depression [F32.A] 05/28/2022 Migraines [G43.909] 05/28/2022 PTSD (post-traumatic stress disorder) [F43.10] 05/28/2022 Seizure-like activity (HCC) [R56.9] 05/29/2022 Encounter Status:Closed by NIYA BROWNING on 01/07/23 Normal [facility] CNOVon 12-31-2022 CNOV Office Visit (EPILMN ) ALISHA ARNOLD ([id number]) 1975 F Date Time Provider Department 12/31/22 3:00 PM NIYA BROWNING [facility] During your visit today, we recorded the following information about you: Niya Browning, PhD 12/31/2022 4:02 PM Signed [facility] 12-WEEK FND/PNES TREATMENT PROGRAM PSYCHOLOGY NOTE Session #: 1 Virtual visit This psychotherapy session was conducted virtually using [id number]/[id number]. Discussed privacy risk in digital visits. Consent related to virtual visit was provided verbally after information was read to patient. Patient location: Home Provider location: Office - [facility] [address] Office visit: Location: [facility] [place] [address]51 Pt came to appointment accompanied by: boyfriend ASSESSMENT: This is a 47 year old patient with nonepileptic seizures/functional neurological disorder in counseling for management of symptoms. # of seizures per week: 0 Last day of PNES episode: pt could not recall but sometime in the summer Depression: mild SI?: none reported Anxiety: mild Function: pt does not work, spends her time completing various tasks at home, cleaning, walking her dog, watching TV Mental Status Exam: The patient was alert and oriented x 4. Eye contact was good. Affect was constricted. Judgment/insight was fair-good. Concentration was ok. Pt reported mood as euthymic. Pt firmly denied any SI/HI this week. INTERVENTION: CBT Workbook Taking Control of FND/PNES Chapter 2 - Making the Decision to Begin the Process of Taking Control Reviewed the second chapter and discussed the course of the treatment program, including what each session is going to entail. Discussed the GOAT structure of sessions and helped pt identify motivating factors vs. obstacles. Engaged pt in signature ceremony. Discussed how to keep a seizure log and journal. PATIENT RESPONSE: Pt's understanding of the material appeared good; pt asked appropriate questions. Pt was able to identify motivating factors as well as obstacles to participating in the program. Pt went over the seizure log and journaling exercises, stated that she is motivated to begin journaling. DIAGNOSIS (PROVISIONAL): F44.5 Functional Neurological Symptom Disorder (with seizure attacks) TREATMENT GOALS: Decrease symptoms of anxiety/depression and other stress reactions Increase identification of emotions and emotional regulation Learn healthy tools for emotional release Increase tools related to communication PROGRESS: Pt is motivated and engaged in program; plans to buy a journal and begin writing about her internal experiences. PLAN: Weekly sessions for treatment of Functional Neurological Symptom Disorder with Seizure Attacks. Assignment for next week to include reading the next chapter, as well as keeping a seizure log and a daily journal. Time spent with patient: 45 minutes Niya Browning, PhD [facility] Allergies As of Date: 12/31/2022 (No Known Allergies) Date Reviewed: 10/04/2022 Reviewed by: Jane Mauricio RN - Fully Assessed Reason for Visit: Psychogenic nonepileptic seizure [Other] Primary Visit Diagnosis:Psychogenic nonepileptic seizure [F44.5] Prescriptions as of 12/31/2022 - FLUoxetine (PROZAC) 20 mg capsule Take 60 mg by mouth once daily. - galcanezumab-gnlm (EMGALITY PEN) 120 mg/mL pen Inject 1 mL subcutaneously once every month. Do not shake. - hydrOXYzine pamoate (VISTARIL) 25 mg capsule Take 25 mg by mouth three times daily as needed for anxiety. - metoprolol tartrate, short acting, (LOPRESSOR) 50 mg tablet Take 50 mg by mouth twice daily. - prazosin HCl (PRAZOSIN ORAL) Take 1 mg by mouth daily at bedtime. 1 capsule by mouth hs. Problem List As Of Date 12/31/2022 Noted Resolved HTN (hypertension) [I10] 05/28/2022 Generalized anxiety disorder [F41.1] 05/28/2022 Depression [F32.A] 05/28/2022 Migraines [G43.909] 05/28/2022 PTSD (post-traumatic stress disorder) [F43.10] 05/28/2022 Seizure-like activity (HCC) [R56.9] 05/29/2022 Encounter Status:Closed by NIYA BROWNING on 12/31/22 Normal [facility] CNOVsamantha 11-18-2022 CNOV Office Visit (EPILMN ) ALISHA ARNOLD ([id number]) 1975 F Date Time Provider Department 11/18/22 9:30 AM [facility] During your visit today, we recorded the following information about you: Niya Browning, PhD 11/18/2022 11:42 AM Signed [facility] INITIAL PSYCHOLOGY EVALUATION The patient was informed that this interview was only for the purpose of assessing the presenting problem, for diagnosis and treatment planning and/or to make treatment recommendations. The patient agreed that the evaluation would not be used for forensic, disability, or child custody purposes. The following history is obtained from the patient except when noted. The content acquired from chart review has been confirmed with the patient and discrepancies were noted if any. Limits of confidentiality were discussed. Date: 11/18/22 Office visit: Location: [facility] S51 Pt came to appointment accompanied by: boyfriend Alisha Arnold is a 47 year old who is currently Unemployed, not seeking work and lives with her boyfriend in [place], [place]. REFERRED FROM: [facility] PRESENTING PROBLEM: PNES, to be evaluated for conversion disorder History of Non-Epileptic Episodes Date diagnosis received: May 2022 Per chart and pt report: Patient reports seizure-like episodes beginning in September 2021 described as loss of consciousness, shaking of bilateral arms and legs and intermittent kicking of legs lasting up to 10 minutes, occurring 3-4 nights per week. PNES Semiology: Full body convulsion, trashing, GTC like episodes Shaking and tremors of extremities Muscle jerking, twitching, and spasms Staring, blacking out episodes Unresponsiveness, Loss of Consciousness Driving: No Memory Problem or Cognitive Complaints: Yes If yes, describe: pt reports some cognitive and memory issues Comorbid Epilepsy Diagnosis: No CURRENT PSYCHOTROPIC AND ANTIEPILEPTIC MEDICATIONS: galcanezumab-gnlm (EMGALITY PEN) 120 mg/mL pen FLUoxetine (PROZAC) 20 mg capsule hydrOXYzine pamoate (VISTARIL) 25 mg capsule PNES COMMON MEDICAL COMORBIDITY: migraines MED/SURG Hx: PAST MEDICAL HISTORY Diagnosis Date Depression Hypertension No past surgical history on file. PREVIOUS MENTAL HEALTH TREATMENT: Comorbid psych diagnoses: NATE, MDD, PTSD No hx of or current SI/HI, intent or attempts reported. Current therapist: pt stated that she was involved in counseling through [facility] near [place], [place] from about May 2022 until July 2022 Current psychiatrist: pt stated that she receives her medications through [facility] Previous counseling for PNES: No Previous Intensive Out Patient Treatment for MH: No Previous Inpatient Psychiatric Admission for MH: No Previous ECT for MH: No CURRENT SYMPTOMS: Persistent Depressed mood or hopelessness: No Sleep:disturbed by nightmares Interest:good Guilt or worthlessness: a bit Energy: fluctuates with mood or stress Concentration: fair Appetite: normal Psychomotor Activity: psychomotor activity was WNL. Memory: Good, Fair Anxiety: moderate Panic Disorder: palpitations/pounding heart, accelerated heart rate, trembling or shaking, and feeling dizzy/unsteady/lightheaded/faint Obsessions: none Compulsions: none Sherry/Hypomania: denied Eating Disorder: Patient denies any eating disorder behaviors. ADHD: denied Trauma: verbal, emotional, physical PTSD sx: intrusive memories, recurrent nightmares, flashbacks, difficulty falling or staying asleep, difficulty with restful sleep, poor concentration, dissociative reactions, intense distress triggered by trauma reminders, significant physiological reactions triggered by trauma reminders, avoidance of distressing memories, thoughts or feelings, avoidance of distressing conversations, avoidance of external reminders, poor memory of trauma-related details, Psychosis: Denies any auditory / visual hallucination or paranoid ideation. Self mutilation: Denies Suicidal/Homicidal ideation: None SUICIDE RISK ASSESSMENT: Suicide attempts: Patient denies previous suicide attempts. Risk factors:None Protective factors: Effective and accessible clinical care, Strong support system, Strong ties to medical/mental heatlh professionals, Non-violent conflict resolution SUBSTANCE USE: ETOH: No Tobacco/cigarettes: No Marijuana: No Other Illicit Drugs: No Prescription medication dependence problems past or current: No Previous evaluation, diagnosis or treatment of substance use disorders: No Has the patient, family, physicians or others been concerned with patient's substance use or prescription medication use: No Has the patient been in (more content not included)... Normal [facility] CNOVon 10-04-2022 CNOV Office Visit ([facility] ) ALISHA ARNOLD ([id number]) 1975 F Date Time Provider Department 10/04/22 1:30 PM ROSS YEH During your visit today, we recorded the following information about you: Pulse Respiration Blood pressure Weight 82/minute 16/minute 114/74 74.4 kg Last Period 10/03/22 Ross Yeh MD 10/04/2022 3:52 PM Signed [facility] [place] CC: Headache follow-up Follow-up Visit Last visit: 07/30/2022 Interval History: Alisha Arnold is a 47 year old year old female with a significant past medical history of PNES, PTSD, hypertension, anxiety/depression who presents for further evaluation regarding headaches. Diagnosis: chronic migraine + medication overuse headache Preventive: Emgality Next steps: IV Vyepti, Qulipta Since the last visit: - Patient has had only 4 headache days which are adequately treated with Aspirin - She continues to have multiple episodes of PNES but is starting CBT on November 16. Prior Therapies Duration of Use Dose Side effect Anti-Convulsant Lamotrigine (Lamictal) Zonisamide (Zonegram) Anti-Depressant and Antipsychotic Fluoxetine (Prozac) Blood Pressure Metoprolol (Lopressor,Toprol XL) MABs Fremanezumab (Ajovy) Galcanezumab (Emgality) KP review: HEADACHE SCORES: Physical Exam: Vital Signs: BP 114/74 Pulse 82 Resp 16 Wt 74.4 kg (164 lb) LMP 10/03/2022 (Exact Date) BMI 28.15 kg/m? GENERAL: well appearing, in no acute distress, alert SKIN: Color, texture, turgor normal. No rashes or lesions HEAD: Normocephalic/atraumatic. RESP: normal respiratory effort MSK: No gross joint deformities. NEUROLOGICAL: Mental Status: Alert, oriented to person, place and time, Follows commands, and Speech fluent and appropriate. Cranial Nerves: PERRL, face symmetric, no dysarthria, hearing grossly intact Motor: moves all extremities equally Gait: normal-based. Impression: Alisha Arnold is a 47 year old year old female with a significant past medical history of PNES, PTSD, hypertension, anxiety/depression who presents for further evaluation regarding headaches. At this time, patient is stable and doing well on the current regimen - no changes made today. Patient has seen >50% reduction in severity and frequency with current medication plan. Appropriate refills were prescribed. Follow-up in 6 months PRN. All questions AND concerns were addressed and patient expressed understanding. Diagnosis: chronic migraine Preventive: Emgality Next steps: IV Vyepti, Qulipta Follow-Up: 6 months Prior Therapies Duration of Use Dose Side effect Anti-Convulsant Lamotrigine (Lamictal) Zonisamide (Zonegram) Anti-Depressant and Antipsychotic Fluoxetine (Prozac) Blood Pressure Metoprolol (Lopressor,Toprol XL) MABs Fremanezumab (Ajovy) Galcanezumab (Emgality) Total time in minutes spent with patient: 45 minutes, with more than 50% of the time spent in patient education/counselling/coordinating care with the patient and /or family. 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 Ross Yeh MD Staff Neurologist Headache AND [facility] Allergies As of Date: 10/04/2022 (No Known Allergies) Date Reviewed: 10/04/2022 Reviewed by: Jane Mauricio RN - Fully Assessed Reason for Visit: Migraine [4107] Primary Visit Diagnosis:Chronic migraine without aura, intractable, without status migrainosus [G43.719] Order(s):galcanezumab-gnlm (EMGALITY PEN) 120 mg/mL penInject 1 mL subcutaneously once every month. Do not shake.Disp: 6 mLRfl: 0 Prescriptions as of 10/04/2022 - galcanezumab-gnlm (EMGALITY PEN) 120 mg/mL pen Inject 1 mL subcutaneously once every month. Do not shake. - prazosin HCl (PRAZOSIN ORAL) Take 1 mg by mouth daily at bedtime. 1 capsule by mouth hs. - metoprolol tartrate, short acting, (LOPRESSOR) 50 mg tablet Take 50 mg by mouth twice daily. - FLUoxetine (PROZAC) 20 mg capsule Take 60 mg by mouth once daily. - hydrOXYzine pamoate (VISTARIL) 25 mg capsule Take 25 mg by mouth three times daily as needed for anxiety. Problem List As Of Date 10/04/2022 Noted Resolved HTN (hypertension) [I10] 05/28/2022 Generalized anxiety disorder [F41.1] 05/28/2022 Depression [F32.A] 05/28/2022 Migraines [G43.909] 05/28/2022 PTSD (post-traumatic stress disorder) [F43.10] 05/28/2022 Seizure-like activity (HCC) [R56.9] 05/29/2022 Prescriptions ordered this encounter Disp Refills Start End EMGALITY PEN 120 MG/ML SUBCUTANEOUS * 6 mL 0 10/04/2022 04/02/2023 Route: SUBCUTANEOUS Sig: Inject 1 mL subcutaneously once every month. Do not shake. Medications Discont (more content not included)... Normal [facility] CNOVon 07-30-2022 CNOV Office Visit ([facility] ) ALISHA ARNOLD ([id number]) 1975 F Date Time Provider Department 07/30/22 11:30 AM NIKI HAMMER [facility] During your visit today, we recorded the following information about you: Pulse Blood pressure Weight Height 60/minute 129/66 76.1 kg 1.626 m Niki Hammer APRN.CNP 07/30/2022 5:22 PM Signed Outpatient [facility] - Follow Up Visit Accompanied by: significant other, Jann Primary Problem List: ACTIVE PROBLEM LIST Htn (Hypertension) Generalized Anxiety Disorder Depression Migraines Ptsd (Post-Traumatic Stress Disorder) Seizure-Like Activity (Hcc) Chief Complaint: Patient presents with: Follow Up: Medication Seizures Chronic Migraine Impression and Plan from last visit 07/05/2022, Ruba: Impression: Alisha Arnold is a 47 year old year old female with a significant past medical history of PNES, PTSD, hypertension, anxiety/depression who presents for further evaluation regarding headaches. Patient is clearly a CGRP responder so we will switch Ajovy to Emgality in hopes of better efficacy. Follow-up in 3 months. Diagnosis: chronic migraine + medication overuse headache Preventive: Emgality Next steps: Bette Miller Follow-Up: 3 months Interval Headache History: Alisha Arnold is a 47 year old year old female, with a history of PNES, PTSD, hypertension, narcolepsy, anxiety/depression following up today for headaches. Since the last visit, the patient states that her headaches have not changed. First Emgality injection was 07/16, no side effects. They are here because she has had 2 seizures in the last 4 days. This time was fully convulsing. Went to ED and per pt told seizure. Episodes are getting longer. 9 seizures since last visit. She was out for 25 mins last time. Told stress related but they state no stress, can happens even when having a good day. She has tried many AED's including lamictal, topamax, zonisamide, no side effects but she still had these episodes. They did not help her headaches either. Seen by Epilepsy Dr. Bunn 07/01 who dx'ed PNES, but they state they are not familiar with this. Has appointment for CBT with Dr. Silverman per Dr. Bunn' recommendation. They are inquiring if spells could be migraine or narcolepsy related. Headache HPI Prior Therapies Duration of Use Dose Reason for Discontinuation Anti-Convulsant Lamotrigine (Lamictal) Zonisamide (Zonegram) Anti-Depressant and Antipsychotic Fluoxetine (Prozac) Blood Pressure Metoprolol (Lopressor,Toprol XL) MABs Fremanezumab (Ajovy) Galcanezumab (Emgality) PAST MEDICAL HISTORY Diagnosis Date Depression Hypertension History reviewed. No pertinent surgical history. ALLERGIES No Known Allergies Current Medications: galcanezumab-gnlm (EMGALITY PEN) 120 mg/mL pen Inject 1 mL subcutaneously once every month. Do not shake. prazosin HCl (PRAZOSIN ORAL) Take 1 mg by mouth daily at bedtime. 1 capsule by mouth hs. metoprolol tartrate, short acting, (LOPRESSOR) 50 mg tablet Take 50 mg by mouth twice daily. FLUoxetine (PROZAC) 20 mg capsule Take 60 mg by mouth once daily. hydrOXYzine pamoate (VISTARIL) 25 mg capsule Take 25 mg by mouth three times daily as needed for anxiety. I have reviewed the Health Status Assessment responses and discussed these with the patient: no, patient did not complete Niki Hammer APRN.COMMUNICATIONS PROGRAM MANAGER HEADACHE SCORES: Review of Systems: Review of system : unchanged from the previous visit (sleep patterns, mood, energy, appetite, stress, exercising). Physical Examination: VS: BP 129/66 Pulse 60 Ht 162.6 cm (5' 4 ) Wt 76.1 kg (167 lb 11.2 oz) LMP (LMP Unknown) BMI 28.79 kg/m? General: well appearing, in no acute distress, alert HEENT: Normocephalic/atraumatic. Skin: Color, texture, turgor normal. No rashes or lesions Musculoskeletal: No gross joint deformities. Neurological: Pain Behaviors: no pain behaviors observed Mental Status: Alert and oriented to person, place and time. Affect is normal. Speech is spontaneous and fluent without dysarthria. Short and alf memory, cognition and general fund of knowledge are good. Attention span and concentration are excellent. Cranial Nerves: II-Visual kilgore are full. III, IV, -EOMI, VII-face is symmetric without evidence of weakness. VIII-hearing grossly intact. XII-No atrophy or fasciculations of the tongue. Motor: Normal muscle tone and bulk. No evidence of atrophy or fasciculations. Gait examination is normal. IMPRESSION: Alisha Arnold is a 47 year old year old female with a significant past medical history of PNES, PTSD, hypertension, anxiety/depression who presents for further evaluation regarding headaches. She just started Emgality and it is too son to determine efficacy, but she is tolerating it well so far so we will continue the trial. She has increasingl (more content not included)... Normal [facility] CBC AUTO DIFFon 07-27-2022 BASO # 0.1 103/ul Normal 0.0-0.1 [facility] Comment on above: Performed By: #### C BC #### [facility] [address] [place] [address] Dr. Korey Flores Basophils/100 WBC (Bld) 0.6 % Normal 0.2-2.0 [facility] Comment on above: Performed By: #### C BC #### [facility] [address] [place] [address] Dr. Korey Flores EO # 0.2 103/ul Normal 0.0-0.7 [facility] Comment on above: Performed By: #### C BC #### [facility] [address] [place] [address] Dr. Korey Flores Eosinophils/100 WBC (Bld) 2.4 % Normal 0.9-7.0 [facility] Comment on above: Performed By: #### C BC #### [facility] [address] [place], [place] [id number] Dr. Korey Flores Erythrocyte distribution wid th (RBC) [Ratio] 12.9 % Normal 11.0-15.0 [facility] Comment on above: Performed By: #### C BC #### [facility] [address] [place] [address] Dr. Korey Flores Hematocrit (Bld) [Volume fraction] 39.2 % Normal 3 6.0-48.0 [facility] Comment on above: Performed By: #### C BC #### [facility] [address] [place] [address] Dr. Korey Flores Hemoglobin (Bld) [Mass/Vol] 13.1 g/dL Normal 12.0-16. 0 [facility] Comment on above: Performed By: #### C BC #### [facility] [address] [place] [address] Dr. Korey Flores IG # 0.02 10e3/ul Normal 0.00-0.03 [facility] Comment on above: Performed By: #### C BC #### [facility] [address] [place] [address] Dr. Korey Flores IG % 0.2 % Normal 0.0-0.5 [facility] Comment on above: Performed By: #### C BC #### [facility] [address] [place] [address] Dr. Korey Flores LYMPH # 3.2 103/ul Normal 1.2-3.8 [facility] Comment on above: Performed By: #### C BC #### [facility] [address] [place] [address] Dr. Korey Flores Lymphocytes/100 WBC (Bld) 38.8 % Normal 20.5-60.0 [facility] Comment on above: Performed By: #### C BC #### [facility] [address] [place] [address] Dr. Korey Flores MANUAL DIFF REQ NO Normal [facility] Comment on above: Performed By: #### C BC #### [facility] [address] [place] [address] Dr. Korey Flores MCH (RBC) [Entitic mass] 28.7 pg Normal 26.7-34.0 [facility] Comment on above: Performed By: #### C BC #### [facility] [address] [place] [address] Dr. Korey Flores MCHC (RBC) [Mass/Vol] 33.4 g/dL Normal 29.9-35.2 [facility] Comment on above: Performed By: #### C BC #### [facility] [address] [place] [address] Dr. Korey Flores MCV (RBC) [Entitic vol] 86.0 fL Normal 81.0-99.0 [facility] Comment on above: Performed By: #### C BC #### [facility] [address] [place] [address] Dr. Korey Flores MONO # 0.5 103/ul Normal 0.3-0.8 [facility] Comment on above: Performed By: #### C BC #### [facility] [address] [place] [address] Dr. Korey Flores Monocytes/100 WBC (Bld) 5.4 % Normal 1.7-12.0 [facility] Comment on above: Performed By: #### C BC #### [facility] [address] [place] [address] Dr. Korey Flores NEUT # 4.4 103/ul Normal 1.4-6.5 [facility] Comment on above: Performed By: #### C BC #### [facility] [address] [place] [address] Dr. Korey Flores Neutrophils/100 WBC (Bld) 52.6 % Normal 43.0-75.0 [facility] Comment on above: Performed By: #### C BC #### [facility] [address] [place] [address] Dr. Korey Flores Platelet mean volume (Bld) [ Entitic vol] 10.1 fL Normal 9.5-13.5 [facility] Comment on above: Performed By: #### C BC #### [facility] [address] [place] [address] Dr. Korey Flores RBC 4.56 106/ul Normal 4.20-5.40 [facility] Comment on above: Performed By: #### C BC #### [facility] [address] [place] [address] Dr. Korey Flores WBC 8.3 103/ul Normal 4.0-11.0 [facility] Comment on above: Performed By: #### C BC #### [facility] [address] [place] [address] Dr. Korey Flores CPKon 07-27-2022 CK [Catalytic activity/Vol] 49 U/L Normal 26-192 [facility] Comment on above: Performed By: #### A MM #### [facility] [address] [place] [address] Dr. Korey Flores ETHANOL (BLD ALC)on 07-28-19 23 ALC NOTE NOTE: 80 mg/dl is th e legal limit for a blood alcohol level Normal [facility] Comment on above: Performed By: #### A MM #### [facility] [address] [place] [address] Dr. Korey Flores Ethanol [Mass/Vol] 3 mg/dL Normal [facility] Comment on above: Performed By: #### A MM #### [facility] [address] [place] [address] Dr. Korey Flores PREG HCG QUALon 07-27-2022 , QUAL Negative Normal NEGATIVE [facility] Comment on above: Performed By: #### C VDTB #### [facility] [address] [place] [address] Dr. Korey Flores PROF 14(COMP METB)on 023 Albumin [Mass/Vol] 3.5 g/dL Normal 3.4-5.0 [facility] Comment on above: Performed By: #### A MM #### [facility] [address] [place] [address] Dr. Korey Flores Albumin/Globulin [Mass ratio] 1.1 {ratio} Normal [facility] Comment on above: Performed By: #### A MM #### [facility] [address] [place] [address] Dr. Korey Flores ALP [Catalytic activity/Vol] 75 U/L Normal 46-116 [facility] Comment on above: Performed By: #### A MM #### [facility] [address] [address] [address] Korey Flores ALT [Catalytic activity/Vol] 18 U/L Normal 14-59 [facility] Comment on above: Performed By: #### A MM #### [facility] [address] [address] [address] Korey Flores Anion gap [Moles/Vol] 10.7 mmol/L Normal [facility] Comment on above: Performed By: #### A MM #### [facility] [address] [address] [address] Korey Flores AST [Catalytic activity/Vol] 17 U/L Normal 15-37 [facility] Comment on above: Performed By: #### A MM #### [facility] [address] [place] [address] Dr. Korey Flores Bilirubin [Mass/Vol] 0.5 mg/dL Normal 0.2-1.0 [facility] Comment on above: Performed By: #### A MM #### [facility] [address] [place] [address] Dr. Korey Flores Calcium [Mass/Vol] 8.7 mg/dL Normal 8.5-10.1 [facility] Comment on above: Performed By: #### A MM #### [facility] [address] [place] [address] Dr. Korey Flores Chloride [Moles/Vol] 106 mmol/L Normal 98-107 [facility] Comment on above: Performed By: #### A MM #### [facility] [address] [address] [address] Korey Flores CO2 [Moles/Vol] 25.8 mmol/L Normal 21.0-32.0 [facility] Comment on above: Performed By: #### A MM #### [facility] [address] [place] [address] Dr. Korey Flores Creatinine [Mass/Vol] 0.91 mg/dL Normal 0.55-1.02 [facility] Comment on above: Performed By: #### A MM #### [facility] [address] [address] [address] Korey Flores EGFR-AF FINNISH >60 Normal >=60 [facility] Comment on above: Performed By: #### A MM #### [facility] [address] [address] [address] Korey Flores EGFR-NON AF FINNISH >60 Normal >=60 [facility] Comment on above: Performed By: #### A MM #### [facility] [address] [address] [address] Koery Flores Globulin (S) [Mass/Vol] 3.3 g/dL Normal T [facility] Comment on above: Performed By: #### A MM #### [facility] [address] [place] [address] Dr. Korey Flores Glucose [Mass/Vol] 88 mg/dL Normal 74-106 [facility] Comment on above: Performed By: #### A MM #### [facility] [address] [place] [address] Dr. Korey Flores Potassium [Moles/Vol] 4.5 mmol/L Normal 3.5-5.1 [facility] Comment on above: Performed By: #### A MM #### [facility] [address] [place] [address] Dr. Korey Flores Protein [Mass/Vol] 6.8 g/dL Normal 6.4-8.2 [facility] Comment on above: Performed By: #### A MM #### [facility] [address] [place] [address] Dr. Korey Flores Sodium [Moles/Vol] 138 mmol/L Normal 136-145 [facility] Comment on above: Performed By: #### A MM #### [facility] [address] [place] [address] Dr. Korey Flores Urea nitrogen [Mass/Vol] 13.0 mg/dL Normal 7.0-18.0 [facility] Comment on above: Performed By: #### A MM #### [facility] [address] [place] [address] Dr. Korey Flores Urea nitrogen/Creatinine [Mass ratio] 14.3 mg/mg Normal [facility] Comment on above: Performed By: #### A MM #### [facility] [address] [place] [address] Dr. Korey Flores TSHon 07-27-2022 TSH 1.436 uIU/mL Normal 0.358-3.740 [facility] Comment on above: Performed By: #### C VDTBH #### [facility] [address] [place] [address] Dr. Korey Flores CBC AUTO DIFFon 07-22-2022 BASO # 0.0 103/ul Normal 0.0-0.1 [facility] Comment on above: Performed By: #### C BC #### [facility] [address] [place] [address] Dr. Korey Flores Basophils/100 WBC (Bld) 0.4 % Normal 0.2-2.0 [facility] Comment on above: Performed By: #### C BC #### [facility] [address] [place] [address] Dr. Korey Flores EO # 0.3 103/ul Normal 0.0-0.7 [facility] Comment on above: Performed By: #### C BC #### [facility] [address] [place] [address] Dr. Korey Flores Eosinophils/100 WBC (Bld) 2.5 % Normal 0.9-7.0 [facility] Comment on above: Performed By: #### C BC #### [facility] [facility] [address] [place] [address] Dr. Korey Flores Erythrocyte distribution wid th (RBC) [Ratio] 13.2 % Normal 11.0-15.0 [facility] Comment on above: Performed By: #### C BC #### [facility] [address] [place] [address] Dr. Korey Flores Hematocrit (Bld) [Volume fraction] 40.2 % Normal 3 6.0-48.0 [facility] Comment on above: Performed By: #### C BC #### [facility] [address] [place] [address] Dr. Korey Flores Hemoglobin (Bld) [Mass/Vol] 13.4 g/dL Normal 12.0-16. 0 [facility] Comment on above: Performed By: #### C BC #### [facility] [address] [place] [address] Dr. Korey Flores IG # 0.04 10e3/ul Critically high 0.00-0.03 [facility] Comment on above: Performed By: #### C BC #### [facility] [address] [place] [address] Dr. Korey Flores IG % 0.4 % Normal 0.0-0.5 [facility] Comment on above: Performed By: #### C BC #### [facility] [address] [place] [address] Dr. Korey Flores LYMPH # 4.5 103/ul Critically high 1.2-3.8 [facility] Comment on above: Performed By: #### C BC #### [facility] [address] [place] [address] Dr. Korey Flores Lymphocytes/100 WBC (Bld) 42.7 % Normal 20.5-60.0 [facility] Comment on above: Performed By: #### C BC #### [facility] [address] [place] [address] Dr. Korey Flores MANUAL DIFF REQ NO Normal [facility] Comment on above: Performed By: #### C BC #### [facility] [address] [place] [address] Dr. Korey Flores MCH (RBC) [Entitic mass] 28.9 pg Normal 26.7-34.0 [facility] Comment on above: Performed By: #### C BC #### [facility] [address] [place] [address] Dr. Korey Flores MCHC (RBC) [Mass/Vol] 33.3 g/dL Normal 29.9-35.2 [facility] Comment on above: Performed By: #### C BC #### [facility] [address] [place] [address] Dr. Korey Flores MCV (RBC) [Entitic vol] 86.8 fL Normal 81.0-99.0 [facility] Comment on above: Performed By: #### C BC #### [facility] [address] [place] [address] Dr. Korey Flores MONO # 0.5 103/ul Normal 0.3-0.8 [facility] Comment on above: Performed By: #### C BC #### [facility] [address] [place] [address] Dr. Korey Flores Monocytes/100 WBC (Bld) 5.2 % Normal 1.7-12.0 [facility] Comment on above: Performed By: #### C BC #### [facility] [address] [place] [address] Dr. Korey Flores NEUT # 5.1 103/ul Normal 1.4-6.5 [facility] Comment on above: Performed By: #### C BC #### [facility] [address] [place] [address] Dr. Korey Flores Neutrophils/100 WBC (Bld) 48.8 % Normal 43.0-75.0 [facility] Comment on above: Performed By: #### C BC #### [facility] [address] [place] [address] Dr. Korey Flores Platelet mean volume (Bld) [ Entitic vol] 10.1 fL Normal 9.5-13.5 [facility] Comment on above: Performed By: #### C BC #### [facility] [address] [place] [address] Dr. Korey Flores PLT 343 103/ul Normal 150-450 [facility] Comment on above: Performed By: #### C BC #### [facility] [address] [place] [address] Dr. Korey Flores RBC 4.63 106/ul Normal 4.20-5.40 [facility] Comment on above: Performed By: #### C BC #### [facility] [address] [place] [address] Dr. Korey Flores WBC 10.5 103/ul Normal 4.0-11.0 [facility] Comment on above: Performed By: #### C BC #### [facility] [address] [place] [address] Dr. Korey Flores ER URINE PROFILEon 3 Bilirubin Ql (U) Negative Normal NEGATIVE [facility] Comment on above: Performed By: #### C BC #### [facility] [address] [place] [address] Dr. Korey Flores Clarity (U) CLEAR Normal CLEAR [facility] Comment on above: Performed By: #### C BC #### [facility] [address] [place] [address] Dr. Korey Flores Color (U) LT. YELLOW Normal YELLOW [facility] Comment on above: Performed By: #### C BC #### [facility] [address] [place] [address] Dr. Korey Flores ERUAHD A micrscopic examina tion will be performed if indicated. Normal [facility] Comment on above: Performed By: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 PROVIDER TEMP on 2022 Chloride [Moles/Vol] 99 mmol/L 95-114 [facility] Serum or plasma glucose lucy urement (mass/volume)Ordered By: PROVIDER TEMP on 2022 Glucose [Mass/Vol] 133 mg/dL 70-100 [facility] Comment on above: ADA recommended refe rence rangeRandom Glucose Reference Range is dependent on time and content of last meal. Glucose of more than 200 mg/dL in a nonstressed, ambulatory subject supports the diagnosis of Diabetes Mellitus. Serum or plasma potassium me asurement (moles/volume)Ordered By: PROVIDER TEMP on 2022 Potassium [Moles/Vol] 4.0 mmol/L 3.5-5.1 [facility] Serum or plasma sodium measu rement (moles/volume)Ordered By: PROVIDER TEMP on 2022 Sodium [Moles/Vol] 135 mmol/L 136-146 [facility] Serum or plasma total biliru bin measurement (mass/volume)Ordered By: PROVIDER TEMP on 2022 Bilirubin [Mass/Vol] 0.7 mg/dL 0.3-1.2 [facility] Serum or plasma total carbon dioxide measurement (moles/volume)Ordered By: PROVIDER TEMP on 2022 CO2 [Moles/Vol] 23.1 mmol/L 22.0-30.0 [facility] Serum or plasma urea nitroge n measurement (mass/volume)Ordered By: PROVIDER TEMP on 2022 Urea nitrogen [Mass/Vol] 14 mg/dL - [facility] AMMONIAon 01-01-2022 Ammonia (P) [Mass/Vol] ug/dL Critically low 11-32 [facility] Comment on above: Performed By: #### A MM #### [facility] [address] [place] [address] Dr. Korey Flores CPKon 01-01-2022 CK [Catalytic activity/Vol] 30 U/L Normal 26-192 [facility] Comment on above: Performed By: #### C VDTBH #### [facility] [address] [place] [address] Dr. Korey Flores FREE THYROXINE INDEX T7on FTI 1.55 Normal 1.30-4.50 [facility] Comment on above: Performed By: #### C VDTBH #### [facility] [address] [place] [address] Dr. Korey Flores T3U 31.0 % Normal 30.0-39.0 [facility] Comment on above: Performed By: #### C VDTBH #### [facility] [address] [place] [address] Dr. Korey Flores T4 [Mass/Vol] 5.00 ug/dL Normal 4.80-13.90 [facility] Comment on above: Performed By: #### C VDTBH #### [facility] [address] [place] [address] Dr. Korey Flores LIPID PROFILEon 01-01-2022 CHOL-HDL RATIO NORM SEE BELOW Normal [facility] Comment on above: Result Comment: 3.3 - 4.4 LOW RISK 4.4 - 7.1 AVERAGE RISK 7.1 - 11.0 MODERATE RISK >11.0 HIGH RISK Performed By: #### C VDTBH #### [facility] [address] [place] [address] Dr. Korey Flores Cholesterol [Mass/Vol] 205 mg/dL Critically high <=200 [facility] Comment on above: Performed By: #### C VDTBH #### [facility] [address] [place] [address] Dr. Korey Flores Cholesterol in HDL [Mass/Vol] 49 mg/dL Normal 40-60 [facility] Comment on above: Performed By: #### C VDTBH #### [facility] [address] [address] [address] Korey Flores Cholesterol in LDL [Mass/Vol] 130.8 mg/dL Normal [facility] Comment on above: Performed By: #### C VDTBH #### [facility] [address] [address] [address] Korey Flores Cholesterol.total/Cholestero l in HDL [Mass ratio] 4.2 {ratio} Normal [facility] Comment on above: Performed By: #### C VDTBH #### [facility] [address] [place] [address] Dr. Korey Flores HDL NORMAL > or = 60 mg/dl - LO W CARDIOVASCULAR RISK <40 mg/dl - HIGH CARDIOVASCULAR RISK Normal [facility] Comment on above: Performed By: #### C VDTBH #### [facility] [address] [place] [address] Dr. Korey Flores LDL CALC NORMAL SEE BELOW Normal [facility] Comment on above: Result Comment: <100 mg/dl OPTIMAL 100 - 129 mg/dl NEAR OR ABOVE OPTIMAL 130 - 159 mg/dl BORDERLINE HIGH 160 - 189 mg/dl HIGH >190 mg/dl VERY HIGH Performed By: #### C VDTBH #### [facility] [address] [place] [address] Dr. Korey Flores Triglyceride [Mass/Vol] 126 mg/dL Normal <=150 T [facility] Comment on above: Performed By: #### C VDTBH #### [facility] [address] [place] [address] Dr. Korey Flores VLDL CALC 25.2 mg/dL Normal [facility] Comment on above: Performed By: #### C VDTBH #### [facility] [address] [place] [address] Dr. Korey Flores TSHon 01-01-2022 TSH 1.223 uIU/mL Normal 0.358-3.740 [facility] Comment on above: Performed By: #### C VDTBH #### [facility] [address] [place] [address] Dr. Korey Flores CBC AUTO DIFFon 12-29-2021 BASO # 0.1 103/ul Normal 0.0-0.1 [facility] Comment on above: Performed By: #### C VDTBH #### [facility] [address] [place] [address] Dr. Korey Flores Basophils/100 WBC (Bld) 0.6 % Normal 0.2-2.0 [facility] Comment on above: Performed By: #### C VDTBH #### [facility] [address] [place] [address] Dr. Korey Flores EO # 0.2 103/ul Normal 0.0-0.7 [facility] Comment on above: Performed By: #### C VDTBH #### [facility] [address] [place] [address] Dr. Korey Flores Eosinophils/100 WBC (Bld) 2.3 % Normal 0.9-7.0 [facility] Comment on above: Performed By: #### C VDTBH #### [facility] [address] [place] [address] Dr. Korey Flores Erythrocyte distribution wid th (RBC) [Ratio] 13.1 % Normal 11.0-15.0 [facility] Comment on above: Performed By: #### C VDTBH #### [facility] [address] [place] [address] Dr. Korey Flores Hematocrit (Bld) [Volume fraction] 40.0 % Normal 3 6.0-48.0 [facility] Comment on above: Performed By: #### C VDTBH #### [facility] [address] [place] [address] Dr. Korey Flores Hemoglobin (Bld) [Mass/Vol] 12.8 g/dL Normal 12.0-16. 0 [facility] Comment on above: Performed By: #### C VDTBH #### [facility] [address] [place] [address] Dr. Korey Flores IG # 0.03 10e3/ul Normal 0.00-0.03 [facility] Comment on above: Performed By: #### C VDTBH #### [facility] [address] [place] [address] Dr. Korey Flores IG % 0.3 % Normal 0.0-0.5 [facility] Comment on above: Performed By: #### C VDTBH #### [facility] [address] [place] [address] Dr. Korey Flores LYMPH # 4.3 103/ul Critically high 1.2-3.8 [facility] Comment on above: Performed By: #### C VDTBH #### [facility] [address] [place] [address] Dr. Korey Flores Lymphocytes/100 WBC (Bld) 47.2 % Normal 20.5-60.0 [facility] Comment on above: Performed By: #### C VDTBH #### [facility] [address] [place] [address] Dr. Korey Flores MANUAL DIFF REQ NO Normal [facility] Comment on above: Performed By: #### C VDTBH #### [facility] [address] [place] [address] Dr. Korey Flores MCH (RBC) [Entitic mass] 28.5 pg Normal 26.7-34.0 [facility] Comment on above: Performed By: #### C VDTBH #### [facility] [address] [place] [address] Dr. Korey Flores MCHC (RBC) [Mass/Vol] 32.0 g/dL Normal 29.9-35.2 [facility] Comment on above: Performed By: #### C VDTBH #### [facility] [address] [place] [address] Dr. Korey Flores MCV (RBC) [Entitic vol] 89.1 fL Normal 81.0-99.0 [facility] Comment on above: Performed By: #### C VDTBH #### [facility] [address] [place] [address] Dr. Korey Flores MONO # 0.6 103/ul Normal 0.3-0.8 [facility] Comment on above: Performed By: #### C VDTBH #### [facility] [address] [place] [address] Dr. Korey Flores Monocytes/100 WBC (Bld) 6.6 % Normal 1.7-12.0 [facility] Comment on above: Performed By: #### C VDTBH #### [facility] [address] [place] [address] Dr. Korey Flores NEUT # 3.9 103/ul Normal 1.4-6.5 [facility] Comment on above: Performed By: #### C VDTBH #### [facility] [address] [place] [address] Dr. Korey Flores Neutrophils/100 WBC (Bld) 43.0 % Normal 43.0-75.0 [facility] Comment on above: Performed By: #### C VDTBH #### [facility] [address] [place] [address] Dr. Korey Flores Platelet mean volume (Bld) [ Entitic vol] 10.4 fL Normal 9.5-13.5 [facility] Comment on above: Performed By: #### C VDTBH #### [facility] [address] [place] [address] Dr. Korey Flores PLT 322 103/ul Normal 150-450 [facility] Comment on above: Performed By: #### C VDTBH #### [facility] [address] [place] [address] Dr. Korey Flores RBC 4.49 106/ul Normal 4.20-5.40 [facility] Comment on above: Performed By: #### C VDTBH #### [facility] [address] [place] [address] Dr. Korey Flores WBC 9.1 103/ul Normal 4.0-11.0 [facility] Comment on above: Performed By: #### C VDTBH #### [facility] [address] [address] [address] Korey Flores PROF CHEM 8 (BAS METB)on Anion gap [Moles/Vol] 11.3 mmol/L Normal [facility] Comment on above: Performed By: #### C VDTBH #### [facility] [address] [address] [address] Korey Flores Calcium [Mass/Vol] 9.0 mg/dL Normal 8.5-10.1 [facility] Comment on above: Performed By: #### C VDTBH #### [facility] [address] [place] [address] Dr. Korey Flores Chloride [Moles/Vol] 107 mmol/L Normal 98-107 [facility] Comment on above: Performed By: #### C VDTBH #### [facility] [address] [place] [address] Dr. Korey Flores CO2 [Moles/Vol] 26.3 mmol/L Normal 21.0-32.0 [facility] Comment on above: Performed By: #### C VDTBH #### [facility] [address] [place] [address] Dr. Korey Flores Creatinine [Mass/Vol] 1.17 mg/dL Critically high 0.55-1.02 [facility] Comment on above: Performed By: #### C VDTBH #### [facility] [address] [place] [address] Dr. Korey Flores EGFR-AF FINNISH 60 mL/min/1.73m2 Normal >=60 [facility] Comment on above: Performed By: #### C VDTBH #### [facility] [address] [place] [address] Dr. Korey Flores EGFR-NON AF FINNISH 49 mL/min/1.73m2 Critically low >=60 [facility] Comment on above: Performed By: #### C VDTBH #### [facility] [address] [place] [address] Dr. Korey Flores Glucose [Mass/Vol] 108 mg/dL Critically high 74-106 [facility] Comment on above: Performed By: #### C VDTBH #### [facility] [address] [place] [address] Dr. Korey Flores Potassium [Moles/Vol] 3.6 mmol/L Normal 3.5-5.1 [facility] Comment on above: Performed By: #### C VDTBH #### [facility] [address] [place] [address] Dr. Korey Flores Sodium [Moles/Vol] 141 mmol/L Normal 136-145 [facility] Comment on above: Performed By: #### C VDTBH #### [facility] [address] [place] [address] Dr. Korey Flores Urea nitrogen [Mass/Vol] 14.0 mg/dL Normal 7.0-18.0 [facility] Comment on above: Performed By: #### C VDTBH #### [facility] [address] [place] [address] Dr. Korey Flores Urea nitrogen/Creatinine [Mass ratio] 12.0 mg/mg Normal [facility] Comment on above: Performed By: #### C VDTBH #### [facility] [address] [place] [address] Dr. Korey Flores CBC AUTO DIFFon 12-11-2021 BASO # 0.1 103/ul Normal 0.0-0.1 [facility] Comment on above: Performed By: #### A MM #### [facility] [address] [place] [address] Dr. Korey Flores Basophils/100 WBC (Bld) 0.6 % Normal 0.2-2.0 [facility] Comment on above: Performed By: #### A MM #### [facility] [address] [place] [address] Dr. Korey Flores EO # 0.2 103/ul Normal 0.0-0.7 [facility] Comment on above: Performed By: #### A MM #### [facility] [address] [place] [address] Dr. Korey Flores Eosinophils/100 WBC (Bld) 2.1 % Normal 0.9-7.0 [facility] Comment on above: Performed By: #### A MM #### [facility] [address] [place] [address] Dr. Korey Flores Erythrocyte distribution wid th (RBC) [Ratio] 13.3 % Normal 11.0-15.0 [facility] Comment on above: Performed By: #### A MM #### [facility] [address] [place] [address] Dr. Korey Flores Hematocrit (Bld) [Volume fraction] 37.7 % Normal 3 6.0-48.0 [facility] Comment on above: Performed By: #### A MM #### [facility] [address] [place] [address] Dr. Korey Flores Hemoglobin (Bld) [Mass/Vol] 12.5 g/dL Normal 12.0-16. 0 [facility] Comment on above: Performed By: #### A MM #### [facility] [address] [place] [address] Dr. Korey Flores IG # 0.04 10e3/ul Critically high 0.00-0.03 [facility] Comment on above: Performed By: #### A MM #### [facility] [address] [place] [address] Dr. Korey Flores IG % 0.4 % Normal 0.0-0.5 [facility] Comment on above: Performed By: #### A MM #### [facility] [address] [place] [address] Dr. Korey Flores LYMPH # 4.6 103/ul Critically high 1.2-3.8 [facility] Comment on above: Performed By: #### A MM #### [facility] [address] [place] [address] Dr. Korey Flores Lymphocytes/100 WBC (Bld) 41.9 % Normal 20.5-60.0 [facility] Comment on above: Performed By: #### A MM #### [facility] [address] [place] [address] Dr. Korey Flores MANUAL DIFF REQ NO Normal [facility] Comment on above: Performed By: #### A MM #### [facility] [address] [place] [address] Dr. Korey Flores MCH (RBC) [Entitic mass] 29.1 pg Normal 26.7-34.0 [facility] Comment on above: Performed By: #### A MM #### [facility] [address] [place] [address] Dr. Korey Flores MCHC (RBC) [Mass/Vol] 33.2 g/dL Normal 29.9-35.2 [facility] Comment on above: Performed By: #### A MM #### [facility] [address] [place] [address] Dr. Korey Flores MCV (RBC) [Entitic vol] 87.9 fL Normal 81.0-99.0 [facility] Comment on above: Performed By: #### A MM #### [facility] [address] [place] [address] Dr. Korey Flores MONO # 0.7 103/ul Normal 0.3-0.8 [facility] Comment on above: Performed By: #### A MM #### [facility] [address] [place] [address] Dr. Korey Flores Monocytes/100 WBC (Bld) 6.6 % Normal 1.7-12.0 [facility] Comment on above: Performed By: #### A MM #### [facility] [address] [place] [address] Dr. Korey Flores NEUT # 5.4 103/ul Normal 1.4-6.5 [facility] Comment on above: Performed By: #### A MM #### [facility] [address] [place] [address] Dr. Korey Flores Neutrophils/100 WBC (Bld) 48.4 % Normal 43.0-75.0 [facility] Comment on above: Performed By: #### A MM #### [facility] [address] [place] [address] Dr. Korey Flores Platelet mean volume (Bld) [ Entitic vol] 10.2 fL Normal 9.5-13.5 [facility] Comment on above: Performed By: #### A MM #### [facility] [address] [place] [address] Dr. Korey Floers PLT 324 103/ul Normal 150-450 [facility] Comment on above: Performed By: #### A MM #### [facility] [address] [place] [address] Dr. Korey Flores RBC 4.29 106/ul Normal 4.20-5.40 [facility] Comment on above: Performed By: #### A MM #### [facility] [address] [place] [address] Dr. Korey Flores WBC 11.1 103/ul Critically high 4.0-11.0 [facility] Comment on above: Performed By: #### A MM #### [facility] [address] [place] [address] Dr. Korey Flores PROF 14(COMP METB)on 022 Albumin [Mass/Vol] 3.5 g/dL Normal 3.4-5.0 [facility] Comment on above: Performed By: #### C VDTBH #### [facility] [address] [place] [address] Dr. Korey Flores Albumin/Globulin [Mass ratio] 1.1 {ratio} Normal [facility] Comment on above: Performed By: #### C VDTBH #### [facility] [address] [place] [address] Dr. Korey Flores ALP [Catalytic activity/Vol] 89 U/L Normal 46-116 [facility] Comment on above: Performed By: #### C VDTBH #### [facility] [address] [place] [address] Dr. Korey Flores ALT [Catalytic activity/Vol] 20 U/L Normal 14-59 [facility] Comment on above: Performed By: #### C VDTBH #### [facility] [address] [place] [address] Dr. Korey Flores Anion gap [Moles/Vol] 11.0 mmol/L Normal [facility] Comment on above: Performed By: #### C VDTBH #### [facility] [address] [address] [address] Korey Flores AST [Catalytic activity/Vol] 17 U/L Normal 15-37 [facility] Comment on above: Performed By: #### C VDTBH #### [facility] [address] [address] [address] Korey Flores Bilirubin [Mass/Vol] 0.3 mg/dL Normal 0.2-1.0 [facility] Comment on above: Performed By: #### C VDTBH #### [facility] [address] [place] [address] Dr. Korey Flores Calcium [Mass/Vol] 8.7 mg/dL Normal 8.5-10.1 [facility] Comment on above: Performed By: #### C VDTBH #### [facility] [address] [place] [address] Dr. Korey Flores Chloride [Moles/Vol] 106 mmol/L Normal 98-107 [facility] Comment on above: Performed By: #### C VDTBH #### [facility] [address] [place] [address] Dr. Korey Flores CO2 [Moles/Vol] 22.6 mmol/L Normal 21.0-32.0 [facility] Comment on above: Performed By: #### C VDTBH #### [facility] [address] [place] [address] Dr. Korey Flores Creatinine [Mass/Vol] 1.30 mg/dL Critically high 0.55-1.02 [facility] Comment on above: Performed By: #### C VDTBH #### [facility] [address] [place] [address] Dr. Korey Flores EGFR-AF FINNISH 53 mL/min/1.73m2 Critically low >=60 [facility] Comment on above: Performed By: #### C VDTBH #### [facility] [address] [address] [address] Korey Flores EGFR-NON AF FINNISH 44 mL/min/1.73m2 Critically low >=60 [facility] Comment on above: Performed By: #### C VDTBH #### [facility] [address] [address] [address] Korey Flores Globulin (S) [Mass/Vol] 3.2 g/dL Normal [facility] Comment on above: Performed By: #### C VDTBH #### [facility] [address] [address] [address] Korey Flores Glucose [Mass/Vol] 94 mg/dL Normal 74-106 [facility] Comment on above: Performed By: #### C VDTBH #### [facility] [address] [address] [address] Korey Flores Potassium [Moles/Vol] 3.6 mmol/L Normal 3.5-5.1 [facility] Comment on above: Performed By: #### C VDTBH #### [facility] [address] [address] [address] Korey Flores Protein [Mass/Vol] 6.7 g/dL Normal 6.4-8.2 [facility] Comment on above: Performed By: #### C VDTBH #### [facility] [address] [address] [address] Korey Flores Sodium [Moles/Vol] 136 mmol/L Normal 136-145 [facility] Comment on above: Performed By: #### C VDTBH #### [facility] [address] [address] [address] Korey Flores Urea nitrogen [Mass/Vol] 20.0 mg/dL Critically high 7.0-[address] [facility] Comment on above: Performed By: #### C VDTBH #### [facility] [address] [address] [address] Korey Flores Urea nitrogen/Creatinine [Mass ratio] 15.4 mg/mg Normal [facility] Comment on above: Performed By: #### C VDTBH #### [facility] [address] [place] [address] Dr. Korey Flores CBC AUTO DIFFon 12-04-2021 BASO # 0.1 103/ul Normal 0.0-0.1 [facility] Comment on above: Performed By: #### A MM #### [facility] [address] [place] [address] Dr. Korey Flores Basophils/100 WBC (Bld) 0.5 % Normal 0.2-2.0 [facility] Comment on above: Performed By: #### A MM #### [facility] [address] [place] [address] Dr. Korey Flores EO # 0.3 103/ul Normal 0.0-0.7 [facility] Comment on above: Performed By: #### A MM #### [facility] [address] [place] [address] Dr. Korey Flores Eosinophils/100 WBC (Bld) 3.2 % Normal 0.9-7.0 [facility] Comment on above: Performed By: #### A MM #### [facility] [address] [place] [address] Dr. Korey Flores Erythrocyte distribution wid th (RBC) [Ratio] 13.3 % Normal 11.0-15.0 [facility] Comment on above: Performed By: #### A MM #### [facility] [address] [place] [address] Dr. Korey Flores Hematocrit (Bld) [Volume fraction] 43.1 % Normal 3 6.0-48.0 [facility] Comment on above: Performed By: #### A MM #### [facility] [address] [place] [address] Dr. Korey Flores Hemoglobin (Bld) [Mass/Vol] 13.9 g/dL Normal 12.0-16. 0 [facility] Comment on above: Performed By: #### A MM #### [facility] [address] [place] [address] Dr. Korey Flores IG # 0.03 10e3/ul Normal 0.00-0.03 [facility] Comment on above: Performed By: #### A MM #### [facility] [address] [place] [address] Dr. Korey Flores IG % 0.3 % Normal 0.0-0.5 [facility] Comment on above: Performed By: #### A MM #### [facility] [address] [place] [address] Dr. Korey Flores LYMPH # 4.0 103/ul Critically high 1.2-3.8 [facility] Comment on above: Performed By: #### A MM #### [facility] [address] [place] [address] Dr. Korey Flores Lymphocytes/100 WBC (Bld) 41.7 % Normal 20.5-60.0 [facility] Comment on above: Performed By: #### A MM #### [facility] [address] [place] [address] Dr. Korey Flores MANUAL DIFF REQ NO Normal [facility] Comment on above: Performed By: #### A MM #### [facility] [address] [place] [address] Dr. Korey Flores MCH (RBC) [Entitic mass] 28.7 pg Normal 26.7-34.0 [facility] Comment on above: Performed By: #### A MM #### [facility] [address] [place] [address] Dr. Korey Flores MCHC (RBC) [Mass/Vol] 32.3 g/dL Normal 29.9-35.2 [facility] Comment on above: Performed By: #### A MM #### [facility] [address] [place] [address] Dr. Korey Flores MCV (RBC) [Entitic vol] 88.9 fL Normal 81.0-99.0 [facility] Comment on above: Performed By: #### A MM #### [facility] [address] [place] [address] Dr. Korey Flores MONO # 0.6 103/ul Normal 0.3-0.8 [facility] Comment on above: Performed By: #### A MM #### [facility] [address] [place] [address] Dr. Korey Flores Monocytes/100 WBC (Bld) 6.4 % Normal 1.7-12.0 [facility] Comment on above: Performed By: #### A MM #### [facility] [address] [place] [address] Dr. Korey Flores NEUT # 4.6 103/ul Normal 1.4-6.5 [facility] Comment on above: Performed By: #### A MM #### [facility] [address] [place] [address] Dr. Korey Flores Neutrophils/100 WBC (Bld) 47.9 % Normal 43.0-75.0 [facility] Comment on above: Performed By: #### A MM #### [facility] [address] [place] [address] Dr. Korey Flores Platelet mean volume (Bld) [ Entitic vol] 10.0 fL Normal 9.5-13.5 [facility] Comment on above: Performed By: #### A MM #### [facility] [address] [place] [address] Dr. Korey Flores PLT 366 103/ul Normal 150-450 [facility] Comment on above: Performed By: #### A MM #### [facility] [address] [place] [address] Dr. Korey Flores RBC 4.85 106/ul Normal 4.20-5.40 [facility] Comment on above: Performed By: #### A MM #### [facility] [address] [place] [address] Dr. Korey Flores WBC 9.6 103/ul Normal 4.0-11.0 [facility] Comment on above: Performed By: #### A MM #### [facility] [address] [place] [address] Dr. Korey Flores PROF CHEM 8 (BAS METB)on Anion gap [Moles/Vol] 9.2 mmol/L Normal [facility] Comment on above: Performed By: #### B MP #### [facility] [address] [address] [address] Korey Flores Calcium [Mass/Vol] 8.6 mg/dL Normal 8.5-10.1 [facility] Comment on above: Performed By: #### B MP #### [facility] [address] [address] [address] Korey Flores Chloride [Moles/Vol] 106 mmol/L Normal 98-107 [facility] Comment on above: Performed By: #### B MP #### [facility] [address] [address] [address] Korey Flores CO2 [Moles/Vol] 23.7 mmol/L Normal 21.0-32.0 [facility] Comment on above: Performed By: #### B MP #### [facility] [address] [address] [address] Korey Flores Creatinine [Mass/Vol] 1.07 mg/dL Critically high 0.55-1.02 [facility] Comment on above: Performed By: #### B MP #### [facility] [address] [address] [address] Korey Flores EGFR-AF FINNISH >60 Normal >=60 [facility] Comment on above: Performed By: #### B MP #### [facility] [address] [address] [address] Korey Flores EGFR-NON AF FINNISH 55 mL/min/1.73m2 Critically low >=60 [facility] Comment on above: Performed By: #### B MP #### [facility] [address] [address] [address] Korey Flores Glucose [Mass/Vol] 103 mg/dL Normal 74-106 [facility] Comment on above: Performed By: #### B MP #### [facility] [address] [address] [address] Korey Flores Potassium [Moles/Vol] 3.9 mmol/L Normal 3.5-5.1 [facility] Comment on above: Performed By: #### B MP #### [facility] [address] [address] [address] Korey Flores Sodium [Moles/Vol] 135 mmol/L Critically low 136-145 [facility] Comment on above: Performed By: #### B MP #### [facility] [address] [address] [address] Korey Flores Urea nitrogen [Mass/Vol] 14.0 mg/dL Normal 7.0-18.0 [facility] Comment on above: Performed By: #### B MP #### [facility] [address] [address] [address] Korey Flores Urea nitrogen/Creatinine [Mass ratio] 13.1 mg/mg Normal [facility] Comment on above: Performed By: #### B MP #### [facility] [address] [address] [address] Korey Flores Covid-19 PCR (CVDTB)on 09-18 SARS-CoV-2 (COVID-19) RNA MISHA+probe Ql (Unsp spec) Detected Critically abnormal NOT DETECTED [facility] Comment on above: Result Comment: This test is not yet approved or cleared by the [place] FDA. When there are no FDA-approved or cleared tests available, and other criteria are met, FDA can make tests available under an emergency access mechanism called an Emergency Use Authorization (EUA). The EUA for this test is supported by the [employer] Clerk of Health and Human Service's (HHS's) declaration that circumstances exist to justify the emergency use of in vitro diagnostics for the detection and/or diagnosis of the virus that causes COVID-19. This EUA will remain in effect (meaning this test can be used) for the duration of the COVID-19 declaration justifying emergency of IVDs, unless it is terminated or revoked by FDA (after which the test may no longer be used). Performed By: #### C VDTBH #### [facility] [address] [address] [address] Korey Flores CBC AUTO DIFFon 09-28-2021 BASO # 0.1 103/ul Normal 0.0-0.1 [facility] [facility] Comment on above: Performed By: #### A MM #### [facility] [address] [address] [address] Korey Flores Basophils/100 WBC (Bld) 0.5 % Normal 0.2-2.0 [facility] Comment on above: Performed By: #### A MM #### [facility] [address] [address] [address] Korey Flores EO # 0.2 103/ul Normal 0.0-0.7 [facility] Comment on above: Performed By: #### A MM #### [facility] [address] [address] [address] Korey Flores Eosinophils/100 WBC (Bld) 2.0 % Normal 0.9-7.0 [facility] Comment on above: Performed By: #### A MM #### [facility] [address] [place] [address] Dr. Korey Flores Erythrocyte distribution wid th (RBC) [Ratio] 13.2 % Normal 11.0-15.0 [facility] Comment on above: Performed By: #### A MM #### [facility] [address] [place] [address] Dr. Korey Flores Hematocrit (Bld) [Volume fraction] 37.8 % Normal 3 6.0-48.0 [facility] Comment on above: Performed By: #### A MM #### [facility] [address] [place] [address] Dr. Korey Flores Hemoglobin (Bld) [Mass/Vol] 12.3 g/dL Normal 12.0-16. 0 [facility] Comment on above: Performed By: #### A MM #### [facility] [address] [address] [address] Korey Flores IG # 0.07 10e3/ul Critically high 0.00-0.03 [facility] Comment on above: Performed By: #### A MM #### [facility] [address] [address] [address] Korey Florse IG % 0.6 % Critically high 0.0-0.5 [facility] Comment on above: Performed By: #### A MM #### [facility] [address] [address] [address] Korey Flores LYMPH # 5.2 103/ul Critically high 1.2-3.8 [facility] Comment on above: Performed By: #### A MM #### [facility] [address] [place] [address] Dr. Korey Flores Lymphocytes/100 WBC (Bld) 44.8 % Normal 20.5-60.0 [facility] Comment on above: Performed By: #### A MM #### [facility] [address] [place] [address] Dr. Korey Flores MANUAL DIFF REQ NO Normal [facility] Comment on above: Performed By: #### A MM #### [facility] [address] [place] [address] Dr. Korey Flores MCH (RBC) [Entitic mass] 28.7 pg Normal 26.7-34.0 [facility] Comment on above: Performed By: #### A MM #### [facility] [address] [place] [address] Dr. Korey Flores MCHC (RBC) [Mass/Vol] 32.5 g/dL Normal 29.9-35.2 [facility] Comment on above: Performed By: #### A MM #### [facility] [address] [place] [address] Dr. Korey Flores MCV (RBC) [Entitic vol] 88.3 fL Normal 81.0-99.0 [facility] Comment on above: Performed By: #### A MM #### [facility] [address] [place] [address] Dr. Korey Flores MONO # 0.7 103/ul Normal 0.3-0.8 [facility] Comment on above: Performed By: #### A MM #### [facility] [address] [place] [address] Dr. Korey Flores Monocytes/100 WBC (Bld) 6.1 % Normal 1.7-12.0 [facility] Comment on above: Performed By: #### A MM #### [facility] [address] [address] [address] Korey Flores NEUT # 5.3 103/ul Normal 1.4-6.5 [facility] Comment on above: Performed By: #### A MM #### [facility] [address] [address] [address] Korey Flores Neutrophils/100 WBC (Bld) 46.0 % Normal 43.0-75.0 [facility] Comment on above: Performed By: #### A MM #### [facility] [address] [address] [address] Korey Flores Platelet mean volume (Bld) [Entitic vol] 9.7 fL Normal 9.5-13.5 [facility] Comment on above: Performed By: #### A MM #### [facility] [address] [place] [address] Dr. Korey Flores PLT 356 103/ul Normal 150-450 [facility] Comment on above: Performed By: #### A MM #### [facility] [address] [place] [address] Dr. Korey Flores RBC 4.28 106/ul Normal 4.20-5.40 [facility] Comment on above: Performed By: #### A MM #### [facility] [address] [place] [address] Dr. Korey Flores WBC 11.5 103/ul Critically high 4.0-11.0 [facility] Comment on above: Performed By: #### A MM #### [facility] [address] [place] [address] Dr. Korey Flores PROF 14(COMP METB)on 022 Albumin [Mass/Vol] 3.5 g/dL Normal 3.4-5.0 [facility] Comment on above: Performed By: #### C VDTBH #### [facility] [address] [place] [address] Dr. Korey Flores Albumin/Globulin [Mass ratio] 1.0 {ratio} Normal [facility] Comment on above: Performed By: #### C VDTBH #### [facility] [address] [address] [address] Korey Flores ALP [Catalytic activity/Vol] 90 U/L Normal 46-116 [facility] Comment on above: Performed By: #### C VDTBH #### [facility] [address] [address] [address] Korey Flores ALT [Catalytic activity/Vol] 22 U/L Normal 14-59 [facility] Comment on above: Performed By: #### C VDTBH #### [facility] [address] [address] [address] Korey Flores Anion gap [Moles/Vol] 10.8 mmol/L Normal [facility] Comment on above: Performed By: #### C VDTBH #### [facility] [address] [address] [address] Korey Flores AST [Catalytic activity/Vol] 11 U/L Critically low 15- 37 [facility] Comment on above: Performed By: #### C VDTBH #### [facility] [address] [address] [address] Korey Flores Bilirubin [Mass/Vol] 0.2 mg/dL Normal 0.2-1.0 [facility] Comment on above: Performed By: #### C VDTBH #### [facility] [address] [address] [address] Korey Flores Calcium [Mass/Vol] 9.0 mg/dL Normal 8.5-10.1 [facility] Comment on above: Performed By: #### C VDTBH #### [facility] [address] [address] [address] Korey Flores Chloride [Moles/Vol] 107 mmol/L Normal 98-107 [facility] Comment on above: Performed By: #### C VDTBH #### [facility] [address] [address] [address] Korey Flores CO2 [Moles/Vol] 25.0 mmol/L Normal 21.0-32.0 [facility] Comment on above: Performed By: #### C VDTBH #### [facility] [address] [address] [address] Korey Flores Creatinine [Mass/Vol] 1.09 mg/dL Critically high 0.55-1.02 [facility] Comment on above: Performed By: #### C VDTBH #### [facility] [address] [address] [address] Korey Flores EGFR-AF FINNISH >60 Normal >=60 [facility] Comment on above: Performed By: #### C VDTBH #### [facility] [address] [address] [address] Korey Flores EGFR-NON AF FINNISH 54 mL/min/1.73m2 Critically low >=60 [facility] Comment on above: Performed By: #### C VDTBH #### [facility] [address] [address] [address] Korey Flores Globulin (S) [Mass/Vol] 3.5 g/dL Normal T [facility] Comment on above: Performed By: #### C VDTBH #### [facility] [address] [address] [address] Korey Flores Glucose [Mass/Vol] 95 mg/dL Normal 74-106 [facility] Comment on above: Performed By: #### C VDTBH #### [facility] [address] [address] [address] Korey Flores Potassium [Moles/Vol] 3.8 mmol/L Normal 3.5-5.1 [facility] Comment on above: Performed By: #### C VDTBH #### [facility] [address] [address] [address] Korey Flores Protein [Mass/Vol] 7.0 g/dL Normal 6.4-8.2 [facility] Comment on above: Performed By: #### C VDTBH #### [facility] [address] [address] [address] Korey Flores Sodium [Moles/Vol] 139 mmol/L Normal 136-145 [facility] Comment on above: Performed By: #### C VDTBH #### [facility] [address] [place] [address] Dr. Korey Flores Urea nitrogen [Mass/Vol] 18.0 mg/dL Normal 7.0-18.0 [facility] Comment on above: Performed By: #### C VDTBH #### [facility] [address] [place] [address] Dr. Korey Flores Urea nitrogen/Creatinine [Mass ratio] 16.5 mg/mg Normal [facility] Comment on above: Performed By: #### C VDTBH #### [facility] [address] [place] [address] Dr. Korey Flores CBC W MANUAL DIFFon 09-25-19 22 ATYPICAL LYMPH # Normal [facility] Comment on above: Performed By: #### C BC #### [facility] [address] [place] [address] Dr. Korey Flores ATYPICAL LYMPH % Normal [facility] Comment on above: Performed By: #### C BC #### [facility] [address] [place] [address] Dr. Korey Flores BAND # Normal 0.0-0.3 [facility] Comment on above: Performed By: #### C BC #### [facility] [address] [place] [address] Dr. Korey Flores BAND % Normal 0-5 [facility] Comment on above: Performed By: #### C BC #### [facility] [address] [place] [address] Dr. Korey Flores BASOM # 0.00 103/ul Normal 0.00-0.10 [facility] Comment on above: Performed By: #### C BC #### [facility] [address] [place] [address] Dr. Korey Flores BASOM % 0.0 % Critically low 0.2-2.0 [facility] Comment on above: Performed By: #### C BC #### [facility] [address] [place] [address] Dr. Korey Flores BLAST # Normal [facility] Comment on above: Performed By: #### C BC #### [facility] [address] [place] [address] Dr. Korey Flores BLAST % Normal [facility] Comment on above: Performed By: #### C BC #### [facility] [address] [place] [address] Dr. Korey Flores CORRECTED WBC Normal 4.0-11.0 [facility] Comment on above: Performed By: #### C BC #### [facility] [address] [place] [address] Dr. Korey Flores EOS # 0.37 103/ul Normal 0.00-0.70 [facility] Comment on above: Performed By: #### C BC #### [facility] [address] [place] [address] Dr. Korey Flores EOS% 3.0 % Normal 0.9-7.0 [facility] Comment on above: Performed By: #### C BC #### [facility] [address] [place] [address] Dr. Korey Flores HCT 43.0 % Normal 36.0-48.0 [facility] Comment on above: Performed By: #### C BC #### [facility] [address] [place] [address] Dr. Korey Flores HGB 13.8 g/dl Normal 12.0-16.0 [facility] Comment on above: Performed By: #### C BC #### [facility] [address] [place] [address] Dr. Korey Flores LYMPHM # 4.71 103/ul Critically high 1.20-3.80 [facility] Comment on above: Performed By: #### C BC #### [facility] [address] [place] [address] Dr. Korey Flores LYMPHM% 38.0 % Normal 20.5-60.0 [facility] Comment on above: Performed By: #### C BC #### [facility] [address] [place] [address] Dr. Korey Flores MCH 28.8 pg Normal 26.7-34.0 [facility] Comment on above: Performed By: #### C BC #### [facility] [address] [place] [address] Dr. Korey Flores MCHC 32.1 g/dl Normal 29.9-35.2 [facility] Comment on above: Performed By: #### C BC #### [facility] [address] [place] [address] Dr. Korey Flores MCV 89.6 fL Normal 81.0-99.0 [facility] Comment on above: Performed By: #### C BC #### [facility] [address] [place] [address] Dr. Korey Flores METAMYELOCYTE # Normal [facility] Comment on above: Performed By: #### C BC #### [facility] [address] [place] [address] Dr. Korey Flores METAMYELOCYTE % Normal [facility] Comment on above: Performed By: #### C BC #### [facility] [address] [place] [address] Dr. Korey Flores MONOM# 0.50 103/ul Normal 0.30-0.80 [facility] Comment on above: Performed By: #### C BC #### [facility] [address] [place] [address] Dr. Korey Flores MONOM% 4.0 % Normal 1.7-12.0 [facility] Comment on above: Performed By: #### C BC #### [facility] [address] [place] [address] Dr. Korey Flores MPV 10.1 fL Normal 9.5-13.5 [facility] Comment on above: Performed By: #### C BC #### [facility] [address] [place] [address] Dr. Korey Flores MYELOCYTE # Normal [facility] Comment on above: Performed By: #### C BC #### [facility] [address] [place] [address] Dr. Korey Flores MYELOCYTE % Normal [facility] Comment on above: Performed By: #### C BC #### [facility] [address] [place] [address] Dr. Korey Flores NRBC Normal [facility] Comment on above: Performed By: #### C BC #### [facility] [address] [place] [address] Dr. Korey Flores PLT 302 103/ul Normal 150-450 [facility] Comment on above: Performed By: #### C BC #### [facility] [address] [place] [address] Dr. Korey Flores RBC 4.80 106/ul Normal 4.20-5.40 [facility] Comment on above: Performed By: #### C BC #### [facility] [address] [place] [address] Dr. Korey Flores RDW 12.9 % Normal 11.0-15.0 [facility] Comment on above: Performed By: #### C BC #### [facility] [address] [place] [address] Dr. Korey Flores SEG # 6.82 103/ul Critically high 1.40-6.50 [facility] Comment on above: Performed By: #### C BC #### [facility] [address] [place] [address] Dr. Korey Flores SEG % 55.0 % Normal 43.0-75.0 [facility] Comment on above: Performed By: #### C BC #### [facility] [address] [place] [address] Dr. Korey Flores WBC 12.4 103/ul Critically high 4.0-11.0 [facility] Comment on above: Performed By: #### C BC #### [facility] [address] [place] [address] Dr. Korey Flores Covid-19 PCR ([facility])on SARS-CoV-2 (COVID-19) RNA MISHA+probe Ql (Unsp spec) Not detected Normal NOT DETECTED [facility] Comment on above: Result Comment: When diagnostic testing is negative, the possibility of a false negative should be considered in the context of a patient's recent exposures and the presence of clinical signs and symptoms consistent with SARS-CoV-2. This test is not yet approved or cleared by the [place] FDA. When there are no FDA-approved or cleared tests available, and other criteria are met, FDA can make tests available under an emergency access mechanism called an Emergency Use Authorization (EUA). The EUA for this test is supported by the [place] of Health and Human Service's declaration that circumstances exist to justify the emergency use of in vitro diagnostics for the detection and/or diagnosis of the virus that causes COVID-19. This EUA will remain in effect for the duration of the COVID-19 declaration justifying emergency of IVDs, unless it is terminated or revoked by the FDA (after which the test may no longer be used). Performed By: #### C VDTB #### [facility] [address] [place] [address] Dr. Korey Flores PROF 14(COMP METB)on 022 Albumin [Mass/Vol] 3.2 g/dL Critically low 3.4-5.0 [facility] Comment on above: Performed By: #### C BC #### [facility] [address] [place] [address] Dr. Korey Flores Albumin/Globulin [Mass ratio] 0.9 {ratio} Normal [facility] Comment on above: Performed By: #### C BC #### [facility] [address] [place] [address] Dr. Korey Flores ALP [Catalytic activity/Vol] 83 U/L Normal 46-116 [facility] Comment on above: Performed By: #### C BC #### [facility] [address] [place] [address] Dr. Korey Flores ALT [Catalytic activity/Vol] 22 U/L Normal 14-59 [facility] Comment on above: Performed By: #### C BC #### [facility] [address] [place] [address] Dr. Korey Flores Anion gap [Moles/Vol] 15.2 mmol/L Normal Th [facility] Comment on above: Performed By: #### C BC #### [facility] [address] [place] [address] Dr. Korey Flores AST [Catalytic activity/Vol] 11 U/L Critically low 15- 37 [facility] Comment on above: Performed By: #### C BC #### [facility] [address] [place] [address] Dr. Korey Flores Bilirubin [Mass/Vol] 0.3 mg/dL Normal 0.2-1.0 [facility] Comment on above: Performed By: #### C BC #### [facility] [address] [place] [address] Dr. Korey Flores Calcium [Mass/Vol] 8.1 mg/dL Critically low 8.5-10.1 [facility] Comment on above: Performed By: #### C BC #### [facility] [address] [place] [address] Dr. Korey Flores Chloride [Moles/Vol] 108 mmol/L Critically high 98-107 [facility] Comment on above: Performed By: #### C BC #### [facility] [address] [place] [address] Dr. Korey Flores CO2 [Moles/Vol] 21.8 mmol/L Normal 21.0-32.0 [facility] Comment on above: Performed By: #### C BC #### [facility] [address] [place] [address] Dr. Korey Flores Creatinine [Mass/Vol] 0.98 mg/dL Normal 0.55-1.02 [facility] Comment on above: Performed By: #### C BC #### [facility] [address] [place] [address] Dr. Korey Flores EGFR-AF FINNISH >60 Normal >=60 [facility] Comment on above: Performed By: #### C BC #### [facility] [address] [place] [address] Dr. Korey Flores EGFR-NON AF FINNISH >60 Normal >=60 [facility] Comment on above: Performed By: #### C BC #### [facility] [address] [address] [address] oKrey Flores Globulin (S) [Mass/Vol] 3.7 g/dL Normal T [facility] Comment on above: Performed By: #### C BC #### [facility] [address] [address] [address] Korey Flores Glucose [Mass/Vol] 81 mg/dL Normal 74-106 [facility] Comment on above: Performed By: #### C BC #### [facility] [address] [address] [address] Korey Flores Potassium [Moles/Vol] 4.0 mmol/L Normal 3.5-5.1 [facility] Comment on above: Performed By: #### C BC #### [facility] [address] [place] [address] Dr. Korey Flores Protein [Mass/Vol] 6.9 g/dL Normal 6.4-8.2 [facility] Comment on above: Performed By: #### C BC #### [facility] [address] [place] [address] Dr. Korey Flores Sodium [Moles/Vol] 141 mmol/L Normal 136-145 [facility] Comment on above: Performed By: #### C BC #### [facility] [address] [place] [address] Dr. Korey Flores Urea nitrogen [Mass/Vol] 14.0 mg/dL Normal 7.0-18.0 [facility] Comment on above: Performed By: #### C BC #### [facility] [address] [place] [address] Dr. Korey Flores Urea nitrogen/Creatinine [Mass ratio] 14.3 mg/mg Normal [facility] Comment on above: Performed By: #### C BC #### [facility] [address] [place] [address] Dr. Korey Flores CBC AUTO DIFFon 09-23-2021 BASO # 0.1 103/ul Normal 0.0-0.1 [facility] Comment on above: Performed By: #### C VDTBH #### [facility] [address] [place] [address] Dr. Korey Flores Basophils/100 WBC (Bld) 0.4 % Normal 0.2-2.0 [facility] Comment on above: Performed By: #### C VDTBH #### [facility] [address] [place] [address] Dr. Korey Flores EO # 0.3 103/ul Normal 0.0-0.7 [facility] Comment on above: Performed By: #### C VDTBH #### [facility] [address] [place] [address] Dr. Korey Flores Eosinophils/100 WBC (Bld) 2.4 % Normal 0.9-7.0 [facility] Comment on above: Performed By: #### C VDTBH #### [facility] [address] [place] [address] Dr. Korey Flores Erythrocyte distribution wid th (RBC) [Ratio] 13.2 % Normal 11.0-15.0 [facility] Comment on above: Performed By: #### C VDTBH #### [facility] [address] [place] [address] Dr. Korey Flores Hematocrit (Bld) [Volume fraction] 41.2 % Normal 3 6.0-48.0 [facility] Comment on above: Performed By: #### C VDTBH #### [facility] [address] [place] [address] Dr. Korey Flores Hemoglobin (Bld) [Mass/Vol] 13.2 g/dL Normal 12.0-16. 0 [facility] Comment on above: Performed By: #### C VDTBH #### [facility] [address] [place] [address] Dr. Korey Flores IG # 0.06 10e3/ul Critically high 0.00-0.03 [facility] Comment on above: Performed By: #### C VDTBH #### [facility] [address] [place] [address] Dr. Korey Flores IG % 0.5 % Normal 0.0-0.5 [facility] Comment on above: Performed By: #### C VDTBH #### [facility] [address] [place] [address] Dr. Korey Flores LYMPH # 5.1 103/ul Critically high 1.2-3.8 [facility] Comment on above: Performed By: #### C VDTBH #### [facility] [address] [place] [address] Dr. Korey Flores Lymphocytes/100 WBC (Bld) 42.6 % Normal 20.5-60.0 [facility] Comment on above: Performed By: #### C VDTBH #### [facility] [address] [place] [address] Dr. Korey Flores MANUAL DIFF REQ NO Normal [facility] Comment on above: Performed By: #### C VDTBH #### [facility] [address] [place] [address] Dr. Korey Flores MCH (RBC) [Entitic mass] 28.9 pg Normal 26.7-34.0 [facility] Comment on above: Performed By: #### C VDTBH #### [facility] [address] [place] [address] Dr. Korey Flores MCHC (RBC) [Mass/Vol] 32.0 g/dL Normal 29.9-35.2 [facility] Comment on above: Performed By: #### C VDTBH #### [facility] [address] [place] [address] Dr. Korey Flores MCV (RBC) [Entitic vol] 90.2 fL Normal 81.0-99.0 [facility] Comment on above: Performed By: #### C VDTBH #### [facility] [address] [place] [address] Dr. Korey Flores MONO # 0.7 103/ul Normal 0.3-0.8 [facility] Comment on above: Performed By: #### C VDTBH #### [facility] [address] [place] [address] Dr. Korey Flores Monocytes/100 WBC (Bld) 5.8 % Normal 1.7-12.0 [facility] Comment on above: Performed By: #### C VDTBH #### [facility] [address] [place] [address] Dr. Korey Flores NEUT # 5.8 103/ul Normal 1.4-6.5 [facility] Comment on above: Performed By: #### C VDTBH #### [facility] [address] [place] [address] Dr. Korey Flores Neutrophils/100 WBC (Bld) 48.3 % Normal 43.0-75.0 [facility] Comment on above: Performed By: #### C VDTBH #### [facility] [address] [place] [address] Dr. Korey Flores Platelet mean volume (Bld) [ Entitic vol] 10.0 fL Normal 9.5-13.5 [facility] Comment on above: Performed By: #### C VDTBH #### [facility] [address] [place] [address] Dr. Korey Flores PLT 337 103/ul Normal 150-450 [facility] Comment on above: Performed By: #### C VDTBH #### [facility] [address] [place] [address] Dr. Korey Flores RBC 4.57 106/ul Normal 4.20-5.40 [facility] Comment on above: Performed By: #### C VDTBH #### [facility] [address] [place] [address] Dr. Korey Flores WBC 12.0 103/ul Critically high 4.0-11.0 [facility] Comment on above: Performed By: #### C VDTBH #### [facility] [address] [place] [address] Dr. Korey Flores CRPon 09-23-2021 CRP 0.8 mg/dL Normal <=1.0 [facility] Comment on above: Performed By: #### A MM #### [facility] [address] [place] [address] HEAD WO CONon 09-23-2021 CT HEAD WO CON CT head without cont rast CLINICAL: Headache. TECHNIQUE: Contiguous transaxial images were obtained from skull base to vertex without administration of intravenous contrast. Dose reduction: mA and/or kV are were adjusted by automated exposure control software based upon patients height and weight. FINDINGS: Comparison made to head CT dated 09/17/2021. There is no focal scalp soft tissue swelling or acute calvarial fracture. The visualized globes and orbits are grossly normal. Visualized paranasal sinuses are clear. Bilateral mastoid air cells are clear. The ventricles and sulci are normal and symmetric bilaterally. There is no intraparenchymal hemorrhage, extraaxial fluid collection, mass lesion, or acute large vessel ischemia by noncontrast CT. IMPRESSION: 1. No acute intracranial abnormality. If the patient has a focal neurologic deficit or there is clinical suspicion for acute cerebrovascular accident, brain MRI would be recommended for further evaluation. Electronically authenticated by: MONICA BURDEN Date: 2021-09-23 13:08 Normal T [facility] PROF 14(COMP METB)on 022 Albumin [Mass/Vol] 3.6 g/dL Normal 3.4-5.0 [facility] Comment on above: Performed By: #### A MM #### [facility] [address] [place] [address] Dr. Korey Flores Albumin/Globulin [Mass ratio] 1.0 {ratio} Normal [facility] Comment on above: Performed By: #### A MM #### [facility] [address] [place] [address] Dr. Korey Flores ALP [Catalytic activity/Vol] 85 U/L Normal 46-116 [facility] Comment on above: Performed By: #### A MM #### [facility] [address] [place] [address] Dr. Korey Flores ALT [Catalytic activity/Vol] 24 U/L Normal 14-59 [facility] Comment on above: Performed By: #### A MM #### [facility] [address] [place] [address] Dr. Korey Flores Anion gap [Moles/Vol] 10.7 mmol/L Normal Th [facility] Comment on above: Performed By: #### A MM #### [facility] [address] [place] [address] Dr. Korey Flores AST [Catalytic activity/Vol] 13 U/L Critically low 15- 37 [facility] Comment on above: Performed By: #### A MM #### [facility] [address] [address] [address] Korey Flores Bilirubin [Mass/Vol] 0.4 mg/dL Normal 0.2-1.0 [facility] Comment on above: Performed By: #### A MM #### [facility] [address] [place] [address] Dr. Korey Flores Calcium [Mass/Vol] 8.8 mg/dL Normal 8.5-10.1 [facility] Comment on above: Performed By: #### A MM #### [facility] [address] [place] [address] Dr. Korey Flores Chloride [Moles/Vol] 107 mmol/L Normal 98-107 [facility] Comment on above: Performed By: #### A MM #### [facility] [address] [place] [address] Dr. Korey Flores CO2 [Moles/Vol] 25.6 mmol/L Normal 21.0-32.0 [facility] Comment on above: Performed By: #### A MM #### [facility] [address] [place] [address] Dr. Korey Flores Creatinine [Mass/Vol] 0.99 mg/dL Normal 0.55-1.02 [facility] Comment on above: Performed By: #### A MM #### [facility] [address] [place] [address] Dr. Korey Flores EGFR-AF FINNISH >60 Normal >=60 [facility] Comment on above: Performed By: #### A MM #### [facility] [address] [place] [address] Dr. Korey Flores EGFR-NON AF FINNISH =60 Normal >=60 [facility] Comment on above: Performed By: #### A MM #### [facility] [address] [address] [address] Korey Flores Globulin (S) [Mass/Vol] 3.6 g/dL Normal T [facility] Comment on above: Performed By: #### A MM #### [facility] [address] [address] [address] Korey Flores Glucose [Mass/Vol] 93 mg/dL Normal 74-106 [facility] Comment on above: Performed By: #### A MM #### [facility] [address] [address] [address] Korey Flores Potassium [Moles/Vol] 4.3 mmol/L Normal 3.5-5.1 [facility] Comment on above: Performed By: #### A MM #### [facility] [address] [place] [address] Dr. Korey Flores Protein [Mass/Vol] 7.2 g/dL Normal 6.4-8.2 [facility] Comment on above: Performed By: #### A MM #### [facility] [address] [place] [address] Dr. Korey Flores Sodium [Moles/Vol] 139 mmol/L Normal 136-145 [facility] Comment on above: Performed By: #### A MM #### [facility] [address] [place] [address] Dr. Korey Flores Urea nitrogen [Mass/Vol] 9.0 mg/dL Normal 7.0-18.0 [facility] Comment on above: Performed By: #### A MM #### [facility] [address] [place] [address] Dr. Korey Flores Urea nitrogen/Creatinine [Mass ratio] 9.1 mg/mg Normal [facility] Comment on above: Performed By: #### A MM #### [facility] [address] [place] [address] Dr. Korey Flores CBC AUTO DIFFon 09-18-2021 BASO # 0.1 103/ul Normal 0.0-0.1 [facility] Comment on above: Performed By: #### C BC #### [facility] [address] [address] [address] Korey Flores Basophils/100 WBC (Bld) 0.4 % Normal 0.2-2.0 [facility] Comment on above: Performed By: #### C BC #### [facility] [address] [address] [address] Korey Flores EO # 0.3 103/ul Normal 0.0-0.7 [facility] Comment on above: Performed By: #### C BC #### [facility] [address] [place] [address] Dr. Korey Flores Eosinophils/100 WBC (Bld) 2.2 % Normal 0.9-7.0 [facility] Comment on above: Performed By: #### C BC #### [facility] [address] [place] [address] Dr. Korey Flores Erythrocyte distribution wid th (RBC) [Ratio] 13.2 % Normal 11.0-15.0 [facility] Comment on above: Performed By: #### C BC #### [facility] [address] [place] [address] Dr. Korey Flores Hematocrit (Bld) [Volume fraction] 40.8 % Normal 3 6.0-48.0 [facility] Comment on above: Performed By: #### C BC #### [facility] [address] [place] [address] Dr. Korey Flores Hemoglobin (Bld) [Mass/Vol] 13.4 g/dL Normal 12.0-16. 0 [facility] Comment on above: Performed By: #### C BC #### [facility] [address] [address] [address] Korey Flores IG # 0.10 10e3/ul Critically high 0.00-0.03 [facility] Comment on above: Performed By: #### C BC #### [facility] [address] [address] [address] Korey Flores IG % 0.7 % Critically high 0.0-0.5 [facility] Comment on above: Performed By: #### C BC #### [facility] [address] [address] [address] Korey Flores LYMPH # 5.0 103/ul Critically high 1.2-3.8 [facility] Comment on above: Performed By: #### C BC #### [facility] [address] [address] [address] Korey Flores Lymphocytes/100 WBC (Bld) 34.7 % Normal 20.5-60.0 [facility] Comment on above: Performed By: #### C BC #### [facility] [address] [address] [address] Korey Flores MANUAL DIFF REQ NO Normal [facility] Comment on above: Performed By: #### C BC #### [facility] [address] [place] [address] Dr. Korey Flores MCH (RBC) [Entitic mass] 28.9 pg Normal 26.7-34.0 [facility] Comment on above: Performed By: #### C BC #### [facility] [address] [place] [address] Dr. Korey Flores MCHC (RBC) [Mass/Vol] 32.8 g/dL Normal 29.9-35.2 [facility] Comment on above: Performed By: #### C BC #### [facility] [address] [address] [address] Korey Flores MCV (RBC) [Entitic vol] 88.1 fL Normal 81.0-99.0 [facility] Comment on above: Performed By: #### C BC #### [facility] [address] [address] [address] Korey Flores MONO # 0.8 103/ul Normal 0.3-0.8 [facility] Comment on above: Performed By: #### C BC #### [facility] [address] [place] [address] Dr. Korey Flores Monocytes/100 WBC (Bld) 5.6 % Normal 1.7-12.0 [facility] Comment on above: Performed By: #### C BC #### [facility] [address] [address] [address] Korey Flores NEUT # 8.1 103/ul Critically high 1.4-6.5 [facility] Comment on above: Performed By: #### C BC #### [facility] [address] [address] [address] Korey Flores Neutrophils/100 WBC (Bld) 56.4 % Normal 43.0-75.0 [facility] Comment on above: Performed By: #### C BC #### [facility] [address] [address] [address] Korey Flores Platelet mean volume (Bld) [ Entitic vol] 10.1 fL Normal 9.5-13.5 [facility] Comment on above: Performed By: #### C BC #### [facility] [address] [address] [address] Korey Flores PLT 312 103/ul Normal 150-450 [facility] Comment on above: Performed By: #### C BC #### [facility] [address] [address] [address] Korey Flores RBC 4.63 106/ul Normal 4.20-5.40 [facility] Comment on above: Performed By: #### C BC #### [facility] [address] [address] [address] Korey Flores WBC 14.4 103/ul Critically high 4.0-11.0 [facility] Comment on above: Performed By: #### C BC #### [facility] [address] [address] [address] Korey Flores PROF 14(COMP METB)on 022 Albumin [Mass/Vol] 3.1 g/dL Critically low 3.4-5.0 [facility] Comment on above: Performed By: #### A MM #### [facility] [address] [address] [address] Korey Flores Albumin/Globulin [Mass ratio] 0.9 {ratio} Normal [facility] Comment on above: Performed By: #### A MM #### [facility] [address] [address] [address] Korey Flores ALP [Catalytic activity/Vol] 65 U/L Normal 46-116 [facility] Comment on above: Performed By: #### A MM #### [facility] [address] [place] [address] Dr. Korey Flores ALT [Catalytic activity/Vol] 20 U/L Normal 14-59 [facility] Comment on above: Performed By: #### A MM #### [facility] [address] [place] [address] Dr. Korey Flores Anion gap [Moles/Vol] 12.5 mmol/L Normal [facility] Comment on above: Performed By: #### A MM #### [facility] [address] [place] [address] Dr. Korey Flores AST [Catalytic activity/Vol] 13 U/L Critically low 15- 37 [facility] Comment on above: Performed By: #### A MM #### [facility] [address] [place] [address] Dr. Korey Flores Bilirubin [Mass/Vol] 0.5 mg/dL Normal 0.2-1.0 [facility] Comment on above: Performed By: #### A MM #### [facility] [address] [place] [address] Dr. Korey Flores Calcium [Mass/Vol] 8.0 mg/dL Critically low 8.5-10.1 [facility] Comment on above: Performed By: #### A MM #### [facility] [address] [place] [address] Dr. Korey Flores Chloride [Moles/Vol] 106 mmol/L Normal 98-107 [facility] Comment on above: Performed By: #### A MM #### [facility] [address] [place] [address] Dr. Korey Flores CO2 [Moles/Vol] 22.5 mmol/L Normal 21.0-32.0 [facility] Comment on above: Performed By: #### A MM #### [facility] [address] [address] [address] Korey Flores Creatinine [Mass/Vol] 0.99 mg/dL Normal 0.55-1.02 [facility] Comment on above: Performed By: #### A MM #### [facility] [address] [address] [address] Korey Flores EGFR-AF FINNISH >60 Normal >=60 [facility] Comment on above: Performed By: #### A MM #### [facility] [address] [address] [address] Korey Flores EGFR-NON AF FINNISH 60 mL/min/1.73m2 Normal >=60 [facility] Comment on above: Performed By: #### A MM #### [facility] [address] [place] [address] Dr. Korey Flores Globulin (S) [Mass/Vol] 3.6 g/dL Normal [facility] Comment on above: Performed By: #### A MM #### [facility] [address] [place] [address] Dr. Korey Flores Glucose [Mass/Vol] 81 mg/dL Normal 74-106 [facility] Comment on above: Performed By: #### A MM #### [facility] [address] [place] [address] Dr. Korey Flores Potassium [Moles/Vol] 4.0 mmol/L Normal 3.5-5.1 [facility] Comment on above: Performed By: #### A MM #### [facility] [address] [place] [address] Dr. Korey Flores Protein [Mass/Vol] 6.7 g/dL Normal 6.4-8.2 [facility] Comment on above: Performed By: #### A MM #### [facility] [address] [place] [address] Dr. Korey Flores Sodium [Moles/Vol] 137 mmol/L Normal 136-145 [facility] Comment on above: Performed By: #### A MM #### [facility] [address] [place] [address] Dr. Korey Flores Urea nitrogen [Mass/Vol] 17.0 mg/dL Normal 7.0-18.0 [facility] Comment on above: Performed By: #### A MM #### [facility] [address] [place] [address] Dr. Korey Flores Urea nitrogen/Creatinine [Mass ratio] 17.2 mg/mg Normal [facility] Comment on above: Performed By: #### A MM #### [facility] [address] [place] [address] Dr. Korey Flores AMMONIAon 09-17-2021 Ammonia (P) [Moles/Vol] 29 umol/L Normal 11-32 [facility] Comment on above: Performed By: #### C VDTB #### [facility] [address] [place] [address] Dr. Korey Flores CBC AUTO DIFFon 09-17-2021 BASO # 0.1 103/ul Normal 0.0-0.1 [facility] Comment on above: Performed By: #### C BC #### [facility] [address] [place] [address] Dr. Korey Flores Basophils/100 WBC (Bld) 0.5 % Normal 0.2-2.0 [facility] Comment on above: Performed By: #### C BC #### [facility] [address] [place] [address] Dr. Korey Flores EO # 0.2 103/ul Normal 0.0-0.7 [facility] Comment on above: Performed By: #### C BC #### [facility] [address] [place] [address] Dr. Korey Flores Eosinophils/100 WBC (Bld) 1.8 % Normal 0.9-7.0 [facility] Comment on above: Performed By: #### C BC #### [facility] [address] [place] [address] Dr. Korey Flores Erythrocyte distribution wid th (RBC) [Ratio] 13.4 % Normal 11.0-15.0 [facility] Comment on above: Performed By: #### C BC #### [facility] [address] [place] [address] Dr. Korey Flores Hematocrit (Bld) [Volume fraction] 37.6 % Normal 3 6.0-48.0 [facility] Comment on above: Performed By: #### C BC #### [facility] [address] [place] [address] Dr. Korey Flores Hemoglobin (Bld) [Mass/Vol] 12.3 g/dL Normal 12.0-16. 0 [facility] Comment on above: Performed By: #### C BC #### [facility] [address] [place] [address] Dr. Korey Flores IG # 0.07 10e3/ul Critically high 0.00-0.03 [facility] Comment on above: Performed By: #### C BC #### [facility] [address] [place] [address] Dr. Korey Flores IG % 0.6 % Critically high 0.0-0.5 [facility] Comment on above: Performed By: #### C BC #### [facility] [address] [place] [address] Dr. Korey Flores LYMPH # 5.0 103/ul Critically high 1.2-3.8 [facility] Comment on above: Performed By: #### C BC #### [facility] [address] [place] [address] Dr. Korey Flores Lymphocytes/100 WBC (Bld) 42.4 % Normal 20.5-60.0 [facility] Comment on above: Performed By: #### C BC #### [facility] [address] [place] [address] Dr. Korey Flores MANUAL DIFF REQ NO Normal [facility] Comment on above: Performed By: #### C BC #### [facility] [address] [place] [address] Dr. Korey Flores MCH (RBC) [Entitic mass] 29.0 pg Normal 26.7-34.0 [facility] Comment on above: Performed By: #### C BC #### [facility] [address] [place] [address] Dr. Korey Flores MCHC (RBC) [Mass/Vol] 32.7 g/dL Normal 29.9-35.2 [facility] Comment on above: Performed By: #### C BC #### [facility] [address] [place] [address] Dr. Korey Flores MCV (RBC) [Entitic vol] 88.7 fL Normal 81.0-99.0 [facility] Comment on above: Performed By: #### C BC #### [facility] [address] [place] [address] Dr. Korey Flores MONO # 0.8 103/ul Normal 0.3-0.8 [facility] Comment on above: Performed By: #### C BC #### [facility] [address] [place] [address] Dr. Korey Flores Monocytes/100 WBC (Bld) 6.8 % Normal 1.7-12.0 [facility] Comment on above: Performed By: #### C BC #### [facility] [address] [place] [address] Dr. Korey Flores NEUT # 5.7 103/ul Normal 1.4-6.5 [facility] Comment on above: Performed By: #### C BC #### [facility] [address] [place] [address] Dr. Korey Flores Neutrophils/100 WBC (Bld) 47.9 % Normal 43.0-75.0 [facility] Comment on above: Performed By: #### C BC #### [facility] [address] [place] [address] Dr. Korey Flores Platelet mean volume (Bld) [Entitic vol] 9.8 fL Normal 9.5-13.5 [facility] Comment on above: Performed By: #### C BC #### [facility] [address] [place] [address] Dr. Korey Flores PLT 290 103/ul Normal 150-450 [facility] Comment on above: Performed By: #### C BC #### [facility] [address] [place], [place] [address] Dr. Korey Flores RBC 4.24 106/ul Normal 4.20-5.40 [facility] Comment on above: Performed By: #### C BC #### [facility] [address] [place], [place] [address] Dr. Korey Flores WBC 11.8 103/ul Critically high 4.0-11.0 [facility] Comment on above: Performed By: #### C BC #### [facility] [address] [place], [place] [address] HEAD WO CONon 09-17-2021 CT HEAD WO CON EXAMINATION: CT HEAD WO CON, 09/17/2021 10:34 AM EDT HISTORY: HEADACHE COMPARISON: 06/29/2021 TECHNIQUE: CT scan of the head was performed without IV contrast. CT dose reduction technique was used, including Automated Exposure Control. FINDINGS: BRAIN: No edema, hemorrhage, mass, acute infarction, or inappropriate atrophy. CSF SPACES: No hydrocephalus, subarachnoid hemorrhage, or mass. Appropriate for age. SKULL: No fracture, mass, or other significant visible lesion. SINUSES: No significant mucosal thickening or fluid on the limited views. ORBITS: No appreciable abnormality on the limited views. OTHER: Negative IMPRESSION: No acute intracranial abnormality Electronically authenticated by: CINTHIA NAVA Date: 2021-09-17 11:40 Normal [facility] CULTURE URINEon 09-17-2021 CULTURE URINE Culture Observations : LIGHT GROWTH OF MIXED GENITAL JONAH. NO POTENTIAL PATHOGENS SEEN. Normal [facility] Comment on above: Performed By: #### C BC #### [facility] [address] [place] [address] [id number] [address] Korey Flores [facility] SARS-CoV-2 (COVID-19) RNA MISHA+probe Ql (Unsp spec) Not detected Normal NOT DETECTED [facility] Comment on above: Result Comment: When diagnostic testing is negative, the possibility of a false negative should be considered in the context of a patient's recent exposures and the presence of clinical signs and symptoms consistent with SARS-CoV-2. This test is not yet approved or cleared by the [place] FDA. When there are no FDA-approved or cleared tests available, and other criteria are met, FDA can make tests available under an emergency access mechanism called an Emergency Use Authorization (EUA). The EUA for this test is supported by the [employer] Clerk of Health and Human Service's declaration that circumstances exist to justify the emergency use of in vitro diagnostics for the detection and/or diagnosis of the virus that causes COVID-19. This EUA will remain in effect for the duration of the COVID-19 declaration justifying emergency of IVDs, unless it is terminated or revoked by the FDA (after which the test may no longer be used). Performed By: #### C VDTBH #### [facility] [address] [place] [address] Dr. Korye Flores LIPASEon 09-17-2021 Lipase [Catalytic activity/Vol] 159.0 U/L Normal 73.0 -393.0 [facility] Comment on above: Performed By: #### C MP, T4, TSH, LIPA #### [facility] [address] [place] [address] Dr. Korey Flores PROF 14(COMP METB)on 022 Albumin [Mass/Vol] 3.2 g/dL Critically low 3.4-5.0 Th [facility] Comment on above: Performed By: #### C MP, T4, TSH, LIPA #### [facility] [address] [place] [address] Dr. Korey Flores Albumin/Globulin [Mass ratio] 1.0 {ratio} Normal [facility] Comment on above: Performed By: #### C MP, T4, TSH, LIPA #### [facility] [address] [place] [address] Dr. Korey Flores ALP [Catalytic activity/Vol] 68 U/L Normal 46-116 [facility] Comment on above: Performed By: #### C MP, T4, TSH, LIPA #### [facility] [address] [place] [address] Dr. Korey Flores ALT [Catalytic activity/Vol] 22 U/L Normal 14-59 [facility] Comment on above: Performed By: #### C MP, T4, TSH, LIPA #### [facility] [address] [place] [address] Dr. Korey Flores Anion gap [Moles/Vol] 11.9 mmol/L Normal [facility] Comment on above: Performed By: #### C MP, T4, TSH, LIPA #### [facility] [address] [place] [address] Dr. Korey Flroes AST [Catalytic activity/Vol] 15 U/L Normal 15-37 [facility] Comment on above: Performed By: #### C MP, T4, TSH, LIPA #### [facility] [address] [place] [address] Dr. Korey Flores Bilirubin [Mass/Vol] 0.3 mg/dL Normal 0.2-1.0 [facility] Comment on above: Performed By: #### C MP, T4, TSH, LIPA #### [facility] [address] [place] [address] Dr. Korey Flores Calcium [Mass/Vol] 8.2 mg/dL Critically low 8.5-10.1 [facility] Comment on above: Performed By: #### C MP, T4, TSH, LIPA #### [facility] [address] [place] [address] Dr. Korey Flores Chloride [Moles/Vol] 107 mmol/L Normal 98-107 [facility] Comment on above: Performed By: #### C MP, T4, TSH, LIPA #### [facility] [address] [place] [address] Dr. Korey Flores CO2 [Moles/Vol] 25.0 mmol/L Normal 21.0-32.0 [facility] Comment on above: Performed By: #### C MP, T4, TSH, LIPA #### [facility] [address] [place] [address] Dr. Korey Flores Creatinine [Mass/Vol] 0.99 mg/dL Normal 0.55-1.02 [facility] Comment on above: Performed By: #### C MP, T4, TSH, LIPA #### [facility] [address] [place], [place] [id number] Dr. Korey Flores EGFR-AF FINNISH >60 Normal >=60 [facility] Comment on above: Performed By: #### C MP, T4, TSH, LIPA #### [facility] [address] [address] [address] Korey Flores EGFR-NON AF FINNISH 60 mL/min/1.73m2 Normal >=60 [facility] Comment on above: Performed By: #### C MP, T4, TSH, LIPA #### [facility] [address] [place] [address] Dr. Korey Flores Globulin (S) [Mass/Vol] 3.3 g/dL Normal T [facility] Comment on above: Performed By: #### C MP, T4, TSH, LIPA #### [facility] [address] [place] [address] Dr. Korey Flores Glucose [Mass/Vol] 86 mg/dL Normal 74-106 [facility] Comment on above: Performed By: #### C MP, T4, TSH, LIPA #### [facility] [address] [place] [address] Dr. Korey Flores Potassium [Moles/Vol] 3.9 mmol/L Normal 3.5-5.1 [facility] Comment on above: Performed By: #### C MP, T4, TSH, LIPA #### [facility] [address] [place] [address] Dr. Korey Flores Protein [Mass/Vol] 6.5 g/dL Normal 6.4-8.2 [facility] Comment on above: Performed By: #### C MP, T4, TSH, LIPA #### [facility] [address] [address] [address] Korey Flores Sodium [Moles/Vol] 140 mmol/L Normal 136-145 [facility] Comment on above: Performed By: #### C MP, T4, TSH, LIPA #### [facility] [address] [place] [address] Dr. Korey Flores Urea nitrogen [Mass/Vol] 16.0 mg/dL Normal 7.0-18.0 [facility] Comment on above: Performed By: #### C MP, T4, TSH, LIPA #### [facility] [address] [place] [address] Dr. Korey Flores Urea nitrogen/Creatinine [Mass ratio] 16.2 mg/mg Normal [facility] Comment on above: Performed By: #### C MP, T4, TSH, LIPA #### [facility] [address] [place] [address] Dr. Korey Flores T4on 09-17-2021 T4 [Mass/Vol] 6.40 ug/dL Normal 4.80-13.90 [facility] Comment on above: Performed By: #### C MP, T4, TSH, LIPA #### [facility] [address] [place] [address] Dr. Korey Flores TSHon 09-17-2021 TSH 1.241 uIU/mL Normal 0.358-3.740 [facility] Comment on above: Performed By: #### C MP, T4, TSH, LIPA #### [facility] [address] [place] [address] Dr. Korey Flores UA RANDOM W/MICROSCOPICon BACTERIA TRACE Abnormal NONE SEEN [facility] Comment on above: Performed By: #### C VDTBH #### [facility] [address] [place] [address] Dr. Korey Flores Bilirubin Ql (U) Negative Normal NEGATIVE [facility] Comment on above: Performed By: #### C VDTBH #### [facility] [address] [place] [address] Dr. Korey Flores CAST NONE SEEN Normal NONE SEEN [facility] Comment on above: Performed By: #### C VDTBH #### [facility] [address] [place] [address] Dr. Korey Flores Clarity (U) CLEAR Normal CLEAR [facility] Comment on above: Performed By: #### C VDTBH #### [facility] [address] [place] [address] Dr. Korey Flores Color (U) LT. YELLOW Normal YELLOW [facility] Comment on above: Performed By: #### C VDTBH #### [facility] [address] [place] [address] Dr. Korey Flores Crystals LM Nom (Urine sed) NONE SEEN Normal NONE SEE N [facility] Comment on above: Performed By: #### C VDTBH #### [facility] [address] [place] [address] Dr. Korey Flores Epithelial cells LM Ql (Urine sed) RARE Normal N ONE SEEN /RARE [facility] Comment on above: Performed By: #### C VDTBH #### [facility] [address] [place] [address] Dr. Korey Flores Glucose Ql (U) Negative Normal NEGATIVE [facility] Comment on above: Performed By: #### C VDTBH #### [facility] [address] [place] [address] Dr. Korey Flores Hemoglobin Ql (U) TRACE-INTACT Abnormal NEGATIVE [facility] Comment on above: Performed By: #### C VDTBH #### [facility] [address] [place] [address] Dr. Korey Flores Ketones Ql (U) Negative Normal NEGATIVE [facility] Comment on above: Performed By: #### C VDTBH #### [facility] [address] [place] [address] Dr. Korey Flores LEUKOCYTES Negative Normal NEGATIVE [facility] Comment on above: Performed By: #### C VDTBH #### [facility] [address] [place] [address] Dr. Korey Flores MUCOUS NONE SEEN Normal NONE SEEN [facility] Comment on above: Performed By: #### C VDTBH #### [facility] [address] [place] [address] Dr. Korey Flores Nitrite Ql (U) Negative Normal NEGATIVE [facility] Comment on above: Performed By: #### C VDTBH #### [facility] [address] [place] [address] Dr. Korey Flores pH (U) 7.0 [pH] Normal 5-9 [facility] Comment on above: Performed By: #### C VDTBH #### [facility] [address] [place] [address] Dr. Korey Flores RBC 0-2 Normal 0-2 [facility] Comment on above: Performed By: #### C VDTBH #### [facility] [address] [place] [address] Dr. Korey Flores SPEC GRAVITY 1.020 Normal 1.005-<=1.025 [facility] Comment on above: Performed By: #### C VDTBH #### [facility] [address] [place] [address] Dr. Korey Flores UA PROTEIN Negative Normal NEGATIVE/ TRACE [facility] Comment on above: Performed By: #### C VDTBH #### [facility] [address] [place] [address] Dr. Korey Flores Urobilinogen Qn (U) 0.2 {Micaela'U}/dL Normal 0.2 - 1. 0 [facility] Comment on above: Performed By: #### C VDTBH #### [facility] [address] [place] [address] Dr. Korey Flores WBC 0-2 Abnormal NONE SEEN [facility] Comment on above: Performed By: #### C VDTBH #### [facility] [address] [place] [address] Dr. Korey Flores Vital Signs Date Time Vital Sign Value Performing Clinician Reji johnston 10-04-2022 13:25-0400 Body weight 74.39 kg Ross Yeh MD Work Phone: [facility] 10-04-2022 13:25-0400 Diastolic blood pressure 74 mm[Hg] Ross Yeh MD Work Phone: [facility] 10-04-2022 13:25-0400 Heart rate 82 /min Ross Yeh MD Work Phone: [facility] 10-04-2022 13:25-0400 Respiratory rate 16 /min Ross Yeh MD Work Phone: [facility] 10-04-2022 13:25-0400 Systolic blood pressure 114 mm[Hg] Ross Yeh MD Work Phone: [facility] 07-30-2022 11:02-0400 Body height 162.6 cm Koli Green ROOFING APPLICATOR.COMMUNICATIONS PROGRAM MANAGER Work Phone: [facility] 07-30-2022 11:02-0400 Body weight 76.07 kg Koli Green ROOFING APPLICATOR.COMMUNICATIONS PROGRAM MANAGER Work Phone: [facility] 07-30-2022 11:02-0400 Diastolic blood pressure 66 mm[Hg] Koli Green ROOFING APPLICATOR.COMMUNICATIONS PROGRAM MANAGER Work Phone: [facility] 07-30-2022 11:02-0400 Heart rate 60 /min Koli Green ROOFING APPLICATOR.COMMUNICATIONS PROGRAM MANAGER Work Phone: [facility] 07-30-2022 11:02-0400 Systolic blood pressure 129 mm[Hg] Koli Green ROOFING APPLICATOR.COMMUNICATIONS PROGRAM MANAGER Work Phone: [facility] 07-01-2022 13:23-0400 Body height 162.6 cm Alexandro John PA-C Work Phone: [facility] 07-01-2022 13:23-0400 Body weight 74.39 kg Alexandro John PA-C Work Phone: [facility] 07-01-2022 13:23-0400 Diastolic blood pressure 74 mm[Hg] Alexandro John PA-C Work Phone: [facility] 07-01-2022 13:23-0400 Heart rate 73 /min Alexandro John PA-C Work Phone: [facility] 07-01-2022 13:23-0400 SaO2% (BldA) [Mass fraction] 98 % Alexandro John PA-C Work Phone: [facility] 07-01-2022 13:23-0400 Systolic blood pressure 122 mm[Hg] Alexandro John PA-C Work Phone: [facility] 05-28-2022 13:58-0500 Body height 162.6 cm Odalis Trenkamp PA-C Work Phone: [facility] 05-28-2022 13:58-0500 Body weight 75.75 kg Odalis Trenkamp PA-C Work Phone: [facility] 05-28-2022 13:58-0500 Diastolic blood pressure 72 mm[Hg] Odalis Trenkamp PA-C Work Phone: [facility] 05-28-2022 13:58-0500 Heart rate 68 /min Odalis Trenkamp PA-C Work Phone: [facility] 05-28-2022 13:58-0500 Respiratory rate 19 /min Odalis Trenkamp PA-C Work Phone: [facility] 05-28-2022 13:58-0500 SaO2% (BldA) [Mass fraction] 99 % Odalis Trenkamp PA-C Work Phone: [facility] 05-28-2022 13:58-0500 Systolic blood pressure 134 mm[Hg] Odalis Trenkamp PA-C Work Phone: [facility] 04-16-2022 12:39-0500 Body weight 78.38 kg Ross Yeh MD Work Phone: [facility] 04-16-2022 12:39-0500 Diastolic blood pressure 57 mm[Hg] Ross Yeh MD Work Phone: [facility] 04-16-2022 12:39-0500 Heart rate 67 /min Ross Yeh MD Work Phone: [facility] 04-16-2022 12:39-0500 Respiratory rate 16 /min Ross Yeh MD Work Phone: [facility] 04-16-2022 12:39-0500 Systolic blood pressure 97 mm[Hg] Ross eYh MD Work Phone: [facility] 2022 20:38-0400 Diastolic blood pressure 87 mm[Hg] MD Cristino Mendes Work Phone: [facility] 2022 20:38-0400 Heart rate 62 /min MD Cristino Mendes Work Phone: [facility] 2022 20:38-0400 Respiratory rate 18 /min MD Cristino Mendes Work Phone: [facility] 2022 20:38-0400 SaO2% (BldA) [Mass fraction] 99 % MD Cristino Mendes Work Phone: [facility] 2022 20:38-0400 Systolic blood pressure 155 mm[Hg] MD Cristino Mendes Work Phone: [facility] 2022 17:58-0400 Body height 162.56 cm MD Cristino Mendes Work Phone: [facility] 2022 17:58-0400 Body temperature 97.5 [degF] MD Cristino Mendes Work Phone: [facility] 2022 17:58-0400 Body weight 78.01 kg MD Cristino Mendes Work Phone: [facility] Encounters Encounter Date Encounter Type Care Provider Facility Start: 01-07-2023 End: 01-08-2023 ambulatory [facility] Facility:[facility] Start: 01-07-2023 End: 01-07-2023 Patient encounter procedure Niya Browning PhD Work Phone: Neurology Comment on above: Psychogenic nonepile ptic seizure (Primary Dx) Start: 12-31-2022 End: 01-01-2023 ambulatory PAOLO S RAPP Facility:[facility] Start: 12-31-2022 End: 12-31-2022 Patient encounter procedure Niya Browning PhD Work Phone: Neurology Comment on above: Psychogenic nonepile ptic seizure (Primary Dx) Start: 11-18-2022 End: 11-19-2022 ambulatory PAOLO RAPP JR Facility:[facility] Start: 11-18-2022 End: 11-18-2022 Patient encounter procedure Niya Browning PhD Work Phone: Neurology Comment on above: Psychogenic nonepile ptic seizure (Primary Dx) Start: 10-04-2022 End: 10-04-2022 ambulatory PAOLO RAPP Facility:[facility] Start: 10-04-2022 End: 10-04-2022 Patient encounter procedure Ross Yeh MD Work Phone: Neurology Comment on above: Chronic migraine wit hout aura, intractable, without status migrainosus (Primary Dx) Start: 07-30-2022 End: 07-30-2022 ambulatory PAOLO RAPP JR Facility:[facility] Start: 07-30-2022 End: 07-30-2022 Patient encounter procedure Niki Hammer APRN.COMMUNICATIONS PROGRAM MANAGER Work Phone: [facility] Comment on above: Chronic migraine wit hout aura, intractable, without status migrainosus (Primary Dx) Start: 07-27-2022 End: 07-27-2022 ambulatory KARL GIBSON . Facility:[facility] Start: 07-22-2022 End: 07-22-2022 ambulatory KETTY KOHLER Facility:[facility] Start: 07-20-2022 ambulatory Ortega Torres cility:[facility] Start: 07-05-2022 End: 07-05-2022 ambulatory ROSS YEH Facility:[facility] Start: 07-01-2022 End: 07-02-2022 ambulatory ALEXANDRO BUNN Facility:[facility] Start: 07-01-2022 End: 07-01-2022 Patient encounter procedure Alexandro Bunn PA-C Work Phone: Neurology Comment on above: Seizure-like activit y (HCC) (Primary Dx) Start: 06-17-2022 Telephone encounter Ross butterfield MD Work Phone: Internal Medicine [place] Comment on above: Patient Update Start: 05-31-2022 End: 05-31-2022 Evaluation and management of inpatient PAOLO S JOSUÉ JR Facility:[facility] Start: 05-31-2022 Chart abstracting L[place]to [facility] marlon Research Coordinator Neurology Comment on above: Informed Consent (IR B 12-1000) Start: 05-30-2022 End: 05-31-2022 ambulatory KELLEY MCDONALD Facility:[facility] Start: 05-29-2022 End: 05-31-2022 Evaluation and management of inpatient LOREN KLINE Facility:[facility] Start: 05-28-2022 End: 05-29-2022 ambulatory PAOLO S RAPP Facility:[facility] Start: 05-28-2022 End: 05-28-2022 Patient encounter procedure Odalis Castellanos PA-C Work Phone: Neurology Comment on above: Seizure-like activit y (HCC) (Primary Dx) Start: 05-27-2022 Telephone encounter Loren Kline MD Work Phone: Neurology Comment on above: Future Appointment Start: 04-26-2022 End: 04-27-2022 ambulatory [place] Cortez [place] Start: 04-26-2022 End: 04-26-2022 Lab Drop off Tracy Cortez [facility] Start: 04-22-2022 Telephone encounter Loren Kline MD Work Phone: Neurology Comment on above: Future Appointment ( [place], [place], [place] ) Start: 04-18-2022 End: 04-18-[address] CRISTINO MENDES . Facility: Start: 04-16-2022 End: 04-16-2022 ambulatory PAOLO S RAPP Facility:[facility] Start: 04-16-2022 Telephone encounter Ross butterfield MD Work Phone: Neurology Comment on above: Insurance Authorizat ion (AJOVY) Start: 04-16-2022 End: 04-16-2022 Patient encounter procedure Ross Yeh MD Work Phone: Neurology Comment on above: Psychogenic nonepile ptic seizure (Primary Dx) Start: 04-11-2022 End: 04-12-2022 ambulatory KETTY KOHLER Facility:[facility] Start: 03-19-2022 End: 03-19-[address] CRISTINO MENDES . Facility:[facility] Start: 02-02-2022 End: 02-03-[address] CRISTINO MENDES . Facility:[facility] Start: 2022 End: 2022 Emergency department patient visit Neeraj Arevalo Facility:[facility] Start: 2022 End: 2022 Emergency department patient visit MD Crisitno Mendes Work Phone: [facility] Start: 01-04-2022 End: 01-04-[address] CRISTINO MENDES . Facility:[facility] Start: 01-01-2022 End: 01-02-[address] CRISTINO MENDES . Facility:[facility] Start: 12-29-2021 End: 12-29-[address] CRISTINO MENDES . Facility:[facility] Start: 12-11-2021 End: 12-11-[address] CRISTINO MENDES . Facility:[facility] Start: 12-04-2021 End: 12-04-[address] CRISTINO MENDES . Facility:[facility] Start: 10-18-2021 End: 10-18-[address] CRISTINO MENDES . Facility:[facility] Start: 10-02-2021 End: 10-02-[address] CRISTINO MENDES . Facility:[facility] Start: 09-29-2021 End: 09-29-[address] CRISTINO MENDES . Facility:[facility] Start: 09-28-2021 End: 09-28-[address] CARROL BANEGAS Facility:[facility] Start: 09-23-2021 End: 09-24-[address] CRISTINO MENDES . Facility:[facility] Start: 09-17-2021 End: 09-18-[address] CRISTINO MENDES . Facility:[facility] Start: 09-15-2021 End: 09-15-[address] NATA ELMORE . Facility:[facility] Start: 09-09-2021 End: 09-09-2021 ambulatory FITO JONES . Facility:[facility] Start: 09-01-2021 End: 09-01-2021 ambulatory FITO JONES . Facility:[facility] Start: 08-26-2021 End: 08-26-2021 ambulatory KARL GIBSON . Facility:[facility] Start: 08-25-[address] SHANNON Lopez ty:[facility] Start: 08-20-2021 End: 08-20-2021 ambulatory FITO JONES . Facility:[facility] Start: 08-06-2021 End: 08-07-2021 ambulatory KETTY KOHLER Facility:[facility] Procedures Date Procedure Procedure Detail Performing Clinician Start: 08-13-2020 Excisional biopsy Windy Cortez Comment on above: changing lesion of t he right bridge and right periauricular area. Plan of Treatment Date Care Activity Detail Author Start: 05-29-2025 DIABETES SCREEN DIABETES SCREEN [facility] Start: 05-29-2025 Diabetes Screening Diabetes Screening [facility] Start: 10-05-2023 BP CONTROLLED (<130/80) BP CONTROLLED (<130/80) [facility] Start: 07-31-2023 BP CONTROLLED (<130/80) BP CONTROLLED (<130/80) [facility] Start: 11-19-2022 Covid-19 Vaccine ( season) Covid-19 Vaccine ( season) [facility] Start: 11-19-2022 Influenza vaccination [facility] Start: 03-21-2022 DEPRESSION ASSESSMENT DEPRESSION ASSESSMENT [facility] Start: 04-02-2021 COVID-19 VACCINE (4 - Booster for Moderna series) COVID-19 VACCINE (4 - Booster for Moderna series) [facility] Start: 04-02-2021 COVID-19 VACCINE (6 - Booster for Moderna series) COVID-19 VACCINE (6 - Booster for Moderna series) [facility] Start: 04-02-2021 COVID-19 VACCINE (6 - Moderna series) COVID-19 VACCINE (6 - Moderna series) [facility] Start: 2018 COLOGUARD (FIT-DNA) COLOGUARD (FIT-DNA) [facility] Start: 2018 Colonoscopy COLONOSCOPY [facility] Start: 2018 COLORECTAL CANCER SCREENING COLORECTAL CANCER SCREENING [facility] Start: [address] COLONOGRAPHY [facility] Start: 2018 DIABETES SCREEN DIABETES SCREEN [facility] Start: 2018 FECAL OCCULT BLOOD FECAL OCCULT BLOOD [facility] Start: 2018 Lipid 1996 panel - Serum or Plasma Lipid Screening [facility] Start: 2018 LIPID SCREEN LIPID SCREEN [facility] Start: 2018 SIGMOIDOSCOPY SIGMOIDOSCOPY [facility] Start: 2013 Mammography [facility] Start: 2003 HPV TESTING HPV TESTING [facility] Start: 1994 PAP TESTING PAP TESTING [facility] Start: 01-20-1992 Urine microalbumin profile [facility] Start: 1991 ANNUAL PCP TEAM CHRONIC DISEASE VISIT ANNUAL PCP TEAM CHRONIC DISEASE VISIT [facility] Start: 1991 BP CONTROLLED (<130/80) BP CONTROLLED (<130/80) [facility] Start: 1991 HEPATITIS C SCREENING HEPATITIS C SCREENING [facility] Start: 1991 HIV SCREENING HIV SCREENING [facility] Start: 1973 HEPATITIS B (1 of 3 - 3-dose series) HEPATITIS B (1 of 3 - 3-dose series) [facility] Start: 1973 Hepatitis B Vaccine (1 of 3 - 3-dose series) Hepatitis B Vaccine (1 of 3 - 3-dose series) [facility] Patient Education Tension Headache (DC) [facility] Work Phone: Patient referral [facility] Work Phone: [facility] Immunizations Immunization Date Immunization Notes Care Provider Brian bani 11-26-2021 influenza virus vaccine, unspecified formulation Niya Browning PhD Work Phone: [facility] 06-20-2020 SARS-CoV-2 (COVID-19 ) mRNA-[id number] vaccine Tracy Cortez [facility] 05-19-2020 SARS-CoV-2 (COVID-19 ) mRNA-1273 vaccine Tracy Diego [facility] [place] Payers Date Payer Category Payer Self-pay 2013 Medicaid [id number] 1973 Unknown [id number] [id number] 1973 Unknown [id number] 2.16.84 [id number] 1973 Unknown [id number] 2.16.84 [id number] 1973 Unknown [id number] 2.16.84 [id number] 1973 Unknown [id number] 2.16.84 [id number] 1973 Unknown [id number] 2.16.84 [id number] 1973 Unknown [id number] 2.16.84 [id number] 1973 Unknown [id number] 2.16.84 [id number] 1973 Unknown [id number] 2.16.84 0.1.502932.3.579.2.593 1975 Unknown [id number] 2.16.84 0.1.763603.3.579.2.593 1973 Unknown [id number] 2.16.84 0.1.196454.3.579.2.593 1973 Unknown [id number] 2.16.84 0.1.553994.3.579.2.593 1973 Unknown [id number] 2.16.84 0.1.016770.3.579.2.593 1973 Unknown [id number] 2.16.84 0.1.672905.3.579.2.593 1973 Unknown [id number] 2.16.84 0.1.435732.3.579.2.593 1973 Unknown [id number] 2.16.84 0.1.946150.3.579.2.593 1973 Unknown [id number] 2.16.84 0.1.203786.3.579.2.593 1973 Unknown [id number] 2.16.84 0.1.329943.3.579.2.593 1973 Unknown [id number] 2.16.84 0.1.947800.3.579.2.593 1973 Unknown [id number] 2.16.84 0.1.606695.3.579.2.593 1973 Unknown [id number] 2.16.84 0.1.267914.3.579.2.593 1973 Unknown [id number] 2.16.84 0.1.207420.3.579.2.593 1973 Unknown [id number] 2.16.84 0.1.077885.3.579.2.593 1973 Unknown [id number] 2.16.84 0.1.780406.3.579.2.593 1973 Unknown [id number] 2.16.84 0.1.789384.3.579.2.593 1961 Medicaid [id number] 1961 Unknown [id number] Unknown [id number] 2.16.8 40.1.177561.3.579.2.531 Unknown [id number] 2.16.8 40.1.792426.3.579.2.531 Social History Date Type Detail Facility Start: 2022 End: 05-28-2022 Tobacco smoking status MDIS Never smoked tobacco (finding) [facility] Start: 1975 Sex Assigned At Female [facility] Tobacco smoking stat us NHIS Tobacco smoking consumption unknown [facility] Start: 1975 Sex Assigned At Not on file [facility] Start: 07-26-2022 End: 10-04-2022 Sex Assigned At Female [facility] Start: 05-28-2022 Tobacco use and exposure Smokeless tobacco non-user [facility] Start: 05-28-2022 End: 10-04-2022 Alcohol intake Lifetime non-drinker (finding) [facility] Start: 05-31-2022 History SDOH Financial 4 [facility] Start: 05-31-2022 History SDOH Food Worry 1 [facility] Start: 05-31-2022 History [facility] Start: 07-26-2022 End: 10-04-2022 History of Social function [facility] How hard is it for y ou to pay for the very basics like food, housing, medical care, and heating Not very hard [facility] (I/We) worried didi er (my/our) food would run out before (I/we) got money to buy more. Never true [facility] In the past 12 month s, has lack of transportation kept you from medical appointments or from getting medications? No [facility] In the past 12 month s, was there a time when you were not able to pay the mortgage or rent on time? No [facility] Clinical Notes 2022 to 01-07-2023 Niya Browning, PhD - 01/07/2023 3:01 PM Niya Jean, PhD - 12/31/2022 2:59 PM Niya Jean, PhD - 11/18/2022 11:04 AM EDTPatient Instructions Note Date & Type Note Facility 01-07-2023 Note HNO ID: [id number] Author: Niya Browning, PhD Service: ? Author Type: Psychologist Type: Progress Notes Filed: 01/07/2023 4:01 PM Note Text: [facility] 12-WEEK FND/PNES TREATMENT PROGRAM PSYCHOLOGY NOTE Session #: 2 Office visit: Location: [facility] [place] [facility] Pt came to appointment accompanied by: sister ASSESSMENT: This is a 47 year old patient with nonepileptic seizures/functional neurological disorder in counseling for management of symptoms. # of seizures per week: 0 Last day of PNES episode: in the summer Depression: mild SI?: none reported Anxiety: mild Function: pt spends time at home, lives with her boyfriend, takes care of the house Mental Status Exam: The patient was alert and oriented x 4. Eye contact was good. Affect was constricted. Judgment/insight was fair-good. Concentration was ok. Pt reported mood as euthymic. Pt firmly denied any SI/HI this week. INTERVENTION: CBT Workbook Taking Control of FND/PNES Chapter 3 - Getting Support Reviewed the third chapter and helped pt identify a supportive person. Discussed Tool #1: Improving Communication Skills. Reviewed the 3 types of communication styles and examples of each style. Helped pt identify situations from own life experience, and brainstormed ways to improve communication with supportive person for the following week. Continued to review the third chapter, specifically ways to improve relationship with identified support person. Discussed Tool #2: Goal-Setting. Helped pt set an achievable goal for the week. Reviewed discussion questions and provided clarifications. PATIENT RESPONSE: Pt's understanding of the material appeared good; pt asked appropriate questions. Had some difficulty coming up with examples of communication but eventually was able to verbalize given simplified descriptions. Pt was able to select a goal for the week, which includes calling a friend to talk. DIAGNOSIS (PROVISIONAL): F44.5 Functional Neurological Symptom Disorder (with seizure attacks) TREATMENT GOALS: Increase identification of emotions and emotional regulation Learn healthy tools for emotional release Set healthy boundaries with others Increase tools related to communication Increase interest in activities/interest in life Increase healthy lifestyle routines (sleep, exercise, schedule) Develop mindfulness/meditation practice(s) Increase physical activity Explore and engage in activities that align with interests PROGRESS: Pt is motivated, participated in session appropriately and was able to identify a goal to work on. PLAN: Weekly sessions for treatment of Functional Neurological Symptom Disorder with Seizure Attacks. Assignment for next week to include reading the next chapter, as well as keeping a seizure log and a daily journal. Time spent with patient: 45 minutes Niya Browning, PhD Clinical Psychologist Ep[facility]psy [facility] 01-07-2023 History of Presen t illness Narrative Images from the original note were not included. [facility] 12-WEEK FND/PNES TREATMENT PROGRAM PSYCHOLOGY NOTE Session #: 2 Office visit: Location: [facility] Pt came to appointment accompanied by: sister ASSESSMENT: This is a 47 year old patient with nonepileptic seizures/functional neurological disorder in counseling for management of symptoms. # of seizures per week: 0 Last day of PNES episode: in the summer Depression: mild SI?: none reported Anxiety: mild Function: pt spends time at home, lives with her boyfriend, takes care of the house Mental Status Exam: The patient was alert and oriented x 4. Eye contact was good. Affect was constricted. Judgment/insight was fair-good. Concentration was ok. Pt reported mood as euthymic. Pt firmly denied any SI/HI this week. INTERVENTION: CBT Workbook Taking Control of FND/PNES Chapter 3 - Getting Support Reviewed the third chapter and helped pt identify a supportive person. Discussed Tool #1: Improving Communication Skills. Reviewed the 3 types of communication styles and examples of each style. Helped pt identify situations from own life experience, and brainstormed ways to improve communication with supportive person for the following week. Continued to review the third chapter, specifically ways to improve relationship with identified support person. Discussed Tool #2: Goal-Setting. Helped pt set an achievable goal for the week. Reviewed discussion questions and provided clarifications. PATIENT RESPONSE: Pt's understanding of the material appeared good; pt asked appropriate questions. Had some difficulty coming up with examples of communication but eventually was able to verbalize given simplified descriptions. Pt was able to select a goal for the week, which includes calling a friend to talk. DIAGNOSIS (PROVISIONAL): F44.5 Functional Neurological Symptom Disorder (with seizure attacks) TREATMENT GOALS: Increase identification of emotions and emotional regulation Learn healthy tools for emotional release Set healthy boundaries with others Increase tools related to communication Increase interest in activities/interest in life Increase healthy lifestyle routines (sleep, exercise, schedule) Develop mindfulness/meditation practice(s) Increase physical activity Explore and engage in activities that align with interests PROGRESS: Pt is motivated, participated in session appropriately and was able to identify a goal to work on. PLAN: Weekly sessions for treatment of Functional Neurological Symptom Disorder with Seizure Attacks. Assignment for next week to include reading the next chapter, as well as keeping a seizure log and a daily journal. Time spent with patient: 45 minutes Niya Browning, PhD Clinical Psychologist Ep[facility]psy Center documented in this encounter [facility] 12-31-2022 Note HNO ID: [id number] Author: Niya Browning, PhD Service: ? Author Type: Psychologist Type: Progress Notes Filed: 12/31/2022 4:02 PM Note Text: [facility] 12-WEEK FND/PNES TREATMENT PROGRAM PSYCHOLOGY NOTE Session #: 1 Virtual visit This psychotherapy session was conducted virtually using [employer]. Discussed privacy risk in digital visits. Consent related to virtual visit was provided verbally after information was read to patient. Patient location: Home Provider location: Office - [facility] [place] [facility] Office visit: Location: [facility] [place] [facility] Pt came to appointment accompanied by: boyfriend ASSESSMENT: This is a 47 year old patient with nonepileptic seizures/functional neurological disorder in counseling for management of symptoms. # of seizures per week: 0 Last day of PNES episode: pt could not recall but sometime in the summer Depression: mild SI?: none reported Anxiety: mild Function: pt does not work, spends her time completing various tasks at home, cleaning, walking her dog, watching TV Mental Status Exam: The patient was alert and oriented x 4. Eye contact was good. Affect was constricted. Judgment/insight was fair-good. Concentration was ok. Pt reported mood as euthymic. Pt firmly denied any SI/HI this week. INTERVENTION: CBT Workbook Taking Control of FND/PNES Chapter 2 - Making the Decision to Begin the Process of Taking Control Reviewed the second chapter and discussed the course of the treatment program, including what each session is going to entail. Discussed the GOAT structure of sessions and helped pt identify motivating factors vs. obstacles. Engaged pt in signature ceremony. Discussed how to keep a seizure log and journal. PATIENT RESPONSE: Pt's understanding of the material appeared good; pt asked appropriate questions. Pt was able to identify motivating factors as well as obstacles to participating in the program. Pt went over the seizure log and journaling exercises, stated that she is motivated to begin journaling. DIAGNOSIS (PROVISIONAL): F44.5 Functional Neurological Symptom Disorder (with seizure attacks) TREATMENT GOALS: Decrease symptoms of anxiety/depression and other stress reactions Increase identification of emotions and emotional regulation Learn healthy tools for emotional release Increase tools related to communication PROGRESS: Pt is motivated and engaged in program; plans to buy a journal and begin writing about her internal experiences. PLAN: Weekly sessions for treatment of Functional Neurological Symptom Disorder with Seizure Attacks. Assignment for next week to include reading the next chapter, as well as keeping a seizure log and a daily journal. Time spent with patient: 45 minutes Niya Browning, PhD Clinical Psychologist Ep[facility]psy Center [facility] 12-31-2022 History of Presen t illness Narrative Images from the original note were not included. [facility] 12-WEEK FND/PNES TREATMENT PROGRAM PSYCHOLOGY NOTE Session #: 1 Virtual visit This psychotherapy session was conducted virtually using [employer]. Discussed privacy risk in digital visits. Consent related to virtual visit was provided verbally after information was read to patient. Patient location: Home Provider location: Office - [facility] [place] [facility] Office visit: Location: [facility] [place] [facility] Pt came to appointment accompanied by: boyfriend ASSESSMENT: This is a 47 year old patient with nonepileptic seizures/functional neurological disorder in counseling for management of symptoms. # of seizures per week: 0 Last day of PNES episode: pt could not recall but sometime in the summer Depression: mild SI?: none reported Anxiety: mild Function: pt does not work, spends her time completing various tasks at home, cleaning, walking her dog, watching TV Mental Status Exam: The patient was alert and oriented x 4. Eye contact was good. Affect was constricted. Judgment/insight was fair-good. Concentration was ok. Pt reported mood as euthymic. Pt firmly denied any SI/HI this week. INTERVENTION: CBT Workbook Taking Control of FND/PNES Chapter 2 - Making the Decision to Begin the Process of Taking Control Reviewed the second chapter and discussed the course of the treatment program, including what each session is going to entail. Discussed the GOAT structure of sessions and helped pt identify motivating factors vs. obstacles. Engaged pt in signature ceremony. Discussed how to keep a seizure log and journal. PATIENT RESPONSE: Pt's understanding of the material appeared good; pt asked appropriate questions. Pt was able to identify motivating factors as well as obstacles to participating in the program. Pt went over the seizure log and journaling exercises, stated that she is motivated to begin journaling. DIAGNOSIS (PROVISIONAL): F44.5 Functional Neurological Symptom Disorder (with seizure attacks) TREATMENT GOALS: Decrease symptoms of anxiety/depression and other stress reactions Increase identification of emotions and emotional regulation Learn healthy tools for emotional release Increase tools related to communication PROGRESS: Pt is motivated and engaged in program; plans to buy a journal and begin writing about her internal experiences. PLAN: Weekly sessions for treatment of Functional Neurological Symptom Disorder with Seizure Attacks. Assignment for next week to include reading the next chapter, as well as keeping a seizure log and a daily journal. Time spent with patient: 45 minutes Niya Browning, PhD Clinical Psychologist [facility] documented in this encounter [facility] 11-18-2022 Note HNO ID: [id number] Author: Niya Browning, PhD Service: ? Author Type: Psychologist Type: Progress Notes Filed: 11/18/2022 11:42 AM Note Text: [facility] INITIAL PSYCHOLOGY EVALUATION The patient was informed that this interview was only for the purpose of assessing the presenting problem, for diagnosis and treatment planning and/or to make treatment recommendations. The patient agreed that the evaluation would not be used for forensic, disability, or child custody purposes. The following history is obtained from the patient except when noted. The content acquired from chart review has been confirmed with the patient and discrepancies were noted if any. Limits of confidentiality were discussed. Date: 11/18/22 Office visit: Location: [facility] Pt came to appointment accompanied by: boyfriend Alisha Arnold is a 47 year old who is currently Unemployed, not seeking work and lives with her boyfriend in [place], [place]. REFERRED FROM: [facility] Adult Epilepsy Monitoring Unit PRESENTING PROBLEM: PNES, to be evaluated for conversion disorder History of Non-Epileptic Episodes Date diagnosis received: May 2022 Per chart and pt report: Patient reports seizure-like episodes beginning in September 2021 described as loss of consciousness, shaking of bilateral arms and legs and intermittent kicking of legs lasting up to 10 minutes, occurring 3-4 nights per week. PNES Semiology: Full body convulsion, trashing, GTC like episodes Shaking and tremors of extremities Muscle jerking, twitching, and spasms Staring, blacking out episodes Unresponsiveness, Loss of Consciousness Driving: No Memory Problem or Cognitive Complaints: Yes If yes, describe: pt reports some cognitive and memory issues Comorbid Epilepsy Diagnosis: No CURRENT PSYCHOTROPIC AND ANTIEPILEPTIC MEDICATIONS: galcanezumab-gnlm (EMGALITY PEN) 120 mg/mL pen FLUoxetine (PROZAC) 20 mg capsule hydrOXYzine pamoate (VISTARIL) 25 mg capsule PNES COMMON MEDICAL COMORBIDITY: migraines MED/SURG Hx: PAST MEDICAL HISTORY Diagnosis Date Depression Hypertension No past surgical history on file. PREVIOUS MENTAL HEALTH TREATMENT: Comorbid psych diagnoses: NATE, MDD, PTSD No hx of or current SI/HI, intent or attempts reported. Current therapist: pt stated that she was involved in counseling through [facility] near [place], [place] from about May 2022 until July 2022 Current psychiatrist: pt stated that she receives her medications through [facility] Previous counseling for PNES: No Previous Intensive Out Patient Treatment for MH: No Previous Inpatient Psychiatric Admission for MH: No Previous ECT for MH: No CURRENT SYMPTOMS: Persistent Depressed mood or hopelessness: No Sleep:disturbed by nightmares Interest:good Guilt or worthlessness: a bit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 nocturia Neuro: See HPI Psychiatric: negative for sleep disturbance, mood disorder and recent psychosocial stressors HEADACHE SCORES: Physical Exam: Vital Signs: BP 97/57 Pulse 67 Resp 16 Wt 78.4 kg (172 lb 12.8 oz) LMP (LMP Unknown) General: well appearing, in no acute distress, alert Pain Behaviors: no pain behaviors observed Skin: Color, texture, turgor normal. No rashes or lesions HEENT: Normocephalic/atraumatic. Musculoskeletal: No gross joint deformities. Neurological: Mental Status: Alert and oriented to person, place and time. Affect is normal. Speech is spontaneous and fluent without dysarthria. 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 Attention span and concentration are excellent. Cranial Nerves: II-Visual kilgore are full. Funduscopic examination reveals no papilledema. Venous pulsations present. III, IV, -EOMI, PERRL, nystagmus absent, V-normal facial sensation to light touch. VII-face is symmetric without evidence of weakness. VIII-hearing intact. IX, X-palate elevates symmetrically. XI-SCM 5/5. XII-tongue protrudes midline with normal movements. No atrophy or fasciculations of the tongue. Motor Exam: Bulk: Normal bulk noted in all muscles tested. Strength: Delt Biceps Triceps Wrist Ext Wrist Flex Finger Flex Finger Ext Finger Abd Finger Add Right 5/5 5/5 5/5 5/5 5/5 5/5 5/5 5/5 5/5 Left 5/5 5/5 5/5 5/5 5/5 5/5 5/5 5/5 5/5 Hip Flex Hip Ext BiFem (knee flex) Quads (knee ext) Gastroc (plantflx) TibAnt (Dorsiflx) TibPost (ank add) Right 5/5 5/5 5/5 5/5 5/5 5/5 5/5 Left 5/5 5/5 5/5 5/5 5/5 5/5 5/5 Sensation: normal light touch in the upper and lower extremities. Cerebellar: Normal finger to nose; tremor: absent. No ataxia. REFLEXES Right Left Bicep 2/4 2/4 Tricep 2/4 2/4 BrRad 2/4 2/4 Knee 2/4 2/4 Ankle 2/4 2/4 Pathological Reflexes: absent. Gait: Patient's gait is normal and patient can tandem walk HEADACHE EXAM: - No tenderness to palpation during both active and passive ROM testing in the cervicogenic region - No tenderness to palpation in bilateral occipital notches - No tenderness to palpation during TMJ testing IMPRESSION: Alisha Arnold is a 47 year old year old female with a significant past medical history of PTSD, hypertension, anxiety/depression who presents for further evaluation regarding headaches. On today's evaluation, the patient meets criteria for chronic migraine + medication overuse headache. - In the setting of a normal neurological physical examination and typical migraine features, there is no indication for additional neuroimaging at this time. Epilepsy referral has been placed for EEG monitoring; concern for PNES. - For symptomatic relief, on a preventative basis, patient was initiated on Ajovy 225 mg SQ injection monthly. The patient was counseled to take this medication on a daily basis to reduce the severity and frequency of migraine. Keeping a strict log of headaches was encouraged and discussed with the patient. - On the patient's next visit, additional consideration can be made to offer Botox, IV Vyepti as alternative treatments. - Follow-up in 3 months PRN. PLAN: Diagnosis: chronic migraine + medication overuse headache Preventive: Ajovy 225 mg SQ injection monthly Next steps: Epilepsy referral HEADACHE MANAGEMENT: (You are the primary guardian of your health and headache. Keep track of all medications: This includes the reason for use, side effects and benefits.) MEDICATION TREATMENT: Medications to Start Taking fremanezumab-vfrm (AJOVY AUTOINJECTOR) 225 mg/1.5 mL auto-injector Inject 1.5 mL subcutaneously once every month. Do not shake. Headache education was done. Discussed lifestyle modification including increased oral hydration, decreased caffeine, exercise and stress management. Discussed treatment options including preventive and acute medications, natural supplements, and infusion therapy. Discussed medication overuse headache and to limit use of acute treatments to no more than 2 days/week or 10 days/month. Discussed medication side effects, adverse reactions and drug interactions. Written educational materials and patient instructions outlining all of the above were given. Follow-up: 3 months Total time in minutes spent with patient: 60 minutes with more than 50% of the time spent in patient education/counselling/coordinati ng care with the patient and /or family. The above plan discussed with the patient. All questions answered. The patient verbalized understanding. 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 Ross Yeh MD Staff Neurologist Headache & Facial Pain Section [facility] We will get a precert for Calcitonin Gene Related Peptide Monoclonal Antibody, Fremanezumab. This patient meets AHS criteria for treatment with CGRP MAB, She has Chronic Migraine Headache (CM), Chronic Migraine without aura, without mention of intractable migraine without mention of status migrainosus which occurs at least 15 days per month for at least 4 hours per day. The FDA has approved CGRP MAB for prevention of migraine. Specifically, the patient has >15 migraines per month, lasting 4 or more hours/d associated with photophobia, phonophobia, nausea for three or more months. Medication overuse headache has been ruled out. Patient is not currently taking a Gepant for acute treatment of her migraine. The following preventative medications have been tried for 3 or more months without benefit or discontinued due and/or side effects. Anti-Convulsant Lamotrigine (Lamictal) Zonisamide (Zonegram) Anti-Depressant and Antipsychotic Fluoxetine (Prozac) Blood Pressure Metoprolol (Lopressor,Toprol XL) The following abortive medications have been tried but require high frequency use which can lead to Medication Overuse Headache: documented in this encounter [facility] 2022 Hospital Discharg e instructions Additional Instructions Increase your intake of fluids and rest. Take Naprosyn as prescribed for any headache. Follow-up with your PCP for reevaluation in 3 to 5 days. [facility] Work Phone: Evaluation note No assessment inform ation available [facility] Work Phone: Evaluation note Diagnosis Psychogenic nonepileptic seizure- Primary [facility] [place] [facility] Diagnosis Seizure-like activity (HCC)- Primary Other convulsions [facility] [place] [facility] Diagnosis Seizure-like activity (HCC)- Primary Other convulsions [facility] [place] [facility]* Diagnosis Chronic migraine without aura, intractable, without status migrainosus- Primary [facility] [place] [facility] Diagnosis Chronic migraine without aura, intractable, without status migrainosus- Primary [facility] [place] [facility]* Diagnosis Psychogenic nonepileptic seizure- Primary [facility] [place] [facility] Diagnosis Psychogenic nonepileptic seizure- [facility] Psychogenic nonepileptic seizure- Primary [facility] N[facility] No data available for this section [facility] No data available for this section [facility] No data available for this section [facility] Chief Complaint and Reason for Visit Chief Complaint seizure Advance Directives No Advanced Directives Records Found Advance Directive Response Recorded Date/ Time Advance Directives No 2022 8:12pm Reason for Referral Specialty Diagnoses / Procedures Referred By Con rivera Referred To Contact Neurology Diagnoses Psychogenic nonepileptic seizure Procedures CONSULT TO NEUROLOGY OFFICE/OUTPATIENT [facility] 60-74 MINUTES Ross Yeh MD [address] [place] [address] Referral ID Status Reason Start Date Expiration Date Visits Requested Visits Authorized [id number] Authorized PCP Requested Referral 04/16/2022 04/16/2023 1 1 Specialty Diagnoses / Procedures Referred By Con rivera Referred To Contact Ross Yeh MD [address] [place] [address] Referral ID Status Reason Start Date Expiration Date Visits Re quested Visits Authorized [id number] Closed 1 1 Summary Purpose Family History No Family History Records FoundNo Family History Records FoundNo Family History Records FoundNo Family History Records Found Additional Source Comments Care Teams (unrecognized sec tion and content) Team Status: Inactive Member Role Status Dates Cristino Mendes MD Primary Care Provider Active Neeraj Arevalo DO Emergency Provider Active Team Status: Active Member Role Status Dates Cristino Mendes MD Primary Care Provider Active Professor Of Economics Relationship Specialty Start Date End Date Paolo Rapp Jr. 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 PCP - General 06/28/00 Cristino Mendes MD [address] [place] [address] Referring Family Medicine 02/22/22 Professor Of Economics Relationship Specialty Start Date End Date Paolo Rapp Jr. PCP - General 06/28/00 Cristino Mendes MD [address] [place] [address] Referring Family Medicine 02/22/22 Professor Of Economics Relationship Specialty Start Date End Date Paolo Rapp Jr. PCP - General 06/28/00 Cristino Mendes MD [address] [place] [address] Referring Family Medicine 02/22/22 Professor Of Economics Relationship Specialty Start Date End Date Paolo Rapp Jr. PCP - General 06/28/00 Cristino Mendes MD Referring Family Medicine 02/22/22 Professor Of Economics Relationship Specialty Start Date End Date Paolo Rapp Jr. PCP - General 06/28/00 Cristino Mendes MD Referring Family Medicine 02/22/22 Professor Of Economics Relationship Specialty Start Date End Date Paolo Rapp Jr. PCP - General 06/28/00 Cristino Mendes MD Referring Family Medicine 02/22/22 Professor Of Economics Relationship Specialty Start Date End Date Paolo Rapp Jr. PCP - General 06/28/00 Cristino Mendes MD Referring Family Medicine 02/22/22 Professor Of Economics Relationship Specialty Start Date End Date Paolo Rapp Jr. PCP - General 06/28/00 Cristino Mendes MD Referring Family Medicine 02/22/22 Professor Of Economics Relationship Specialty Start Date End Date Paolo Rapp Jr. PCP - General 06/28/00 Cristino Mendes MD Referring Family Medicine 02/22/22 Professor Of Economics Relationship Specialty Start Date End Date RappPaolo Jr. PCP - General 06/28/00 Cristino Mendes MD Referring Family Medicine 02/22/22 Goals (unrecognized section and content) Goals may be documented in a n alternate section No data available for this section Source Comments (unrecognize d section and content) In the event this informatio n is protected by the Federal Confidentiality of Alcohol and Drug Abuse Patient Records regulations: The Federal rules restrict any use of the information to criminally investigate or prosecute any alcohol or drug abuse patient.[facility] the event this information is protected by the Federal Confidentiality of Alcohol and Drug Abuse Patient Records regulations: The Federal rules restrict any use of the information to criminally investigate or prosecute any alcohol or drug abuse patient.[facility] the event this information is protected by the Federal Confidentiality of Alcohol and Drug Abuse Patient Records regulations: The Federal rules restrict any use of the information to criminally investigate or prosecute any alcohol or drug abuse patient.[facility] the event this information is protected by the Federal Confidentiality of Alcohol and Drug Abuse Patient Records regulations: The Federal rules restrict any use of the information to criminally investigate or prosecute any alcohol or drug abuse patient.[facility] the event this information is protected by the Federal Confidentiality of Alcohol and Drug Abuse Patient Records regulations: The Federal rules restrict any use of the information to criminally investigate or prosecute any alcohol or drug abuse patient.[facility] the event this information is protected by the Federal Confidentiality of Alcohol and Drug Abuse Patient Records regulations: The Federal rules restrict any use of the information to criminally investigate or prosecute any alcohol or drug abuse patient.[facility] the event this information is protected by the Federal Confidentiality of Alcohol and Drug Abuse Patient Records regulations: The Federal rules restrict any use of the information to criminally investigate or prosecute any alcohol or drug abuse patient.[facility] the event this information is protected by the Federal Confidentiality of Alcohol and Drug Abuse Patient Records regulations: The Federal rules restrict any use of the information to criminally investigate or prosecute any alcohol or drug abuse patient.[facility] Hospital[facility] the event this information is protected by the Federal Confidentiality of Alcohol and Drug Abuse Patient Records regulations: The Federal rules restrict any use of the information to criminally investigate or prosecute any alcohol or drug abuse patient.[facility] Hospital[facility] the event this information is protected by the Federal Confidentiality of Alcohol and Drug Abuse Patient Records regulations: The Federal rules restrict any use of the information to criminally investigate or prosecute any alcohol or drug abuse patient.[facility] Hospital[facility] the event this information is protected by the Federal Confidentiality of Alcohol and Drug Abuse Patient Records regulations: The Federal rules restrict any use of the information to criminally investigate or prosecute any alcohol or drug abuse patient.[facility] Hospital[facility] the event this information is protected by the Federal Confidentiality of Alcohol and Drug Abuse Patient Records regulations: The Federal rules restrict any use of the information to criminally investigate or prosecute any alcohol or drug abuse patient.[facility] Hospital[facility] the event this information is protected by the Federal Confidentiality of Alcohol and Drug Abuse Patient Records regulations: The Federal rules restrict any use of the information to criminally investigate or prosecute any alcohol or drug abuse patient.[facility] Reason for Visit (unrecogniz ed section and content) Reason Comments Insurance Authorization [id number] Reason Comments Future Appointment [place], Any Reason Comments Migraine Specialty Diagnoses / Procedures Referred By Contac t Referred To Contact [facility] Diagnoses Migraine Procedures Evalute Cristino Mendes MD [address] [place] [address] Neurological [place] [address] [place] [address] Referral ID Status Reason Start Date Expiration Date V isits Requested Visits Authorized [id number] Closed Financial Clearance Required - Self Pay Patient Cleared - INN Insurance Found 02/22/2022 05/23/2022 1 1 Reason Comments Future Appointment Reason Comments New Patient Consult Seizures Reason Comments Informed Consent [facility] 12-1000 Reason Comments Established Patient Follow Up Seizures Reason Comments Follow Up Medication Seizures Chronic Migraine Seizures Reason Comments Patient Update Reason Comments Migraine Reason Comments seizure-like episodes Reason Comments Psychogenic nonepileptic seizure INFORMATION SOURCE (unrecogn ized section and content) DATE CREATED AUTHOR 05/04/2022 Jayro Del [facility] DATE CREATED AUTHOR AUTHOR'S ORGANIZ ATION 07/23/2022 [facility] DATE CREATED AUTHOR AUTHOR'S ORGANIZ ATION 07/30/2022 [facility] DATE CREATED AUTHOR AUTHOR'S ORGANIZ ATION 01/12/2023 [facility] FOR RECORDS PERTAINING TO PATIENTS WHO ARE OR HAVE BEEN ENROLLED IN A CHEMICAL DEPENDENCY/SUBSTANCEABUSE PROGRAM, SOME INFORMATION MAY BE OMITTED. This clinical summary was aggregated from multiple sources. Caution should be exercised in using it in the provision of clinical care. This summary normalizes information from multiple sources, and as a consequence, information in this document may materially change the coding, format and clinical context of patient data. In addition, data may be omitted in some cases. CLINICAL DECISIONS SHOULD BE BASED ON THE PRIMARY CLINICAL RECORDS. [employer] [facility] provides no warranty or guarantee of the accuracy or completeness of information in this document.
== END 2023-02-24 07:39 | disposition home or self-care (01) ==
LOC: LAB 07:38
PROVIDERS: PCP Family Medicine; Visit Provider Family Medicine
DX: D22.9 Melanocytic nevi, unspecified (principal)
CPT/HCPCS: 88305